=== PATIENT | female | born 1960 | race Two or more races ===

== ENCOUNTER 2020-02-24 12:11 | Inpatient (IN) | payer MEDICAID ==
[~2020-02-24] VITALS: Ht 165.1 cm; Wt 62.1 kg
[2020-02-24] MEDS ORDERED: AMOXICILLIN500 MG ORAL (12:36)
[2020-02-24] MEDS ORDERED: FUROSEMIDE20 M1 ORAL (12:36)
[2020-02-24] MEDS ORDERED: OMEPRAZOLE20 M2 ORAL (12:36)
[2020-02-24] MEDS ORDERED: CLARITHROMYCIN500 MG PO (12:36)
[2020-02-24] MEDS ORDERED: METRONIDAZOLE500 MG ORAL (12:36)
[2020-02-24] MEDS ORDERED: BACTRIM-DS1 EA ORAL (12:36)
[2020-02-24] MEDS ORDERED: Omnipaque-300 100ml vial INJ PRN ×2 (12:45→19:45)
[2020-02-24] MEDS ORDERED: Ketorolac 30mg Inj IV ONE (12:45)
--- NOTE | 2020-02-24 13:00 | NUR ---
ED Nurse Note: Pt walked into ED from home for abdominal pain 12/07. She has firm round stomach with nausea, pt states she has vomited 4x. Pt is alert and orientedx4, ambulatory. Set up on monitor. She has been seen by JOSE.
[2020-02-24 13:15] VITALS: BP 118/79
[2020-02-24 13:21] LABS: BASOPHILS % (AUTO) 0.4 % (0.0-2.0); EOSINOPHILS % (AUTO) 0.9 % (0.0-3.0); HEMATOCRIT 47.7 % (37.0-47.0); HEMOGLOBIN 15.1 G/DL (12.0-16.0); LYMPHOCYTES % (AUTO) 12.7 % (20.0-45.0); MEAN CORPUSCULAR VOLUME 86 FL (80-99); MONOCYTES % (AUTO) 5.3 % (1.0-10.0); NEUTROPHILS % (AUTO) 80.6 % (45.0-75.0); PLATELET COUNT 302 K/UL (150-450); RED BLOOD COUNT 5.54 M/UL (4.20-5.40); RED CELL DISTRIBUTION WIDTH 12.3 % (11.6-14.8); WHITE BLOOD COUNT 7.5 K/UL (4.8-10.8)
[2020-02-24 13:32] LABS: ANION GAP 13 mmol/L (5-15); BLOOD UREA NITROGEN 9 mg/dL (7-18); CALCIUM 9.5 MG/DL (8.5-10.1); CARBON DIOXIDE 28 MMOL/L (21-32); CHLORIDE 98 MMOL/L (98-107); CREATININE 1.1 MG/DL (0.55-1.30); POTASSIUM 4.2 MMOL/L (3.5-5.1); SODIUM 138 MMOL/L (136-145)
[2020-02-24 13:38] LABS: INR 1.1 (0.9-1.1)
[2020-02-24 13:39] LABS: ALANINE AMINOTRANSFERASE 28 U/L (12-78); ALBUMIN 3.5 G/DL (3.4-5.0); ALBUMIN/GLOBULIN RATIO 0.8 (1.0-2.7); ALKALINE PHOSPHATASE 79 U/L (46-116); ASPARTATE AMINO TRANSFERASE 46 U/L (15-37); BILIRUBIN,TOTAL 0.3 MG/DL (0.2-1.0); CREATINE KINASE 101 U/L (26-308)
[2020-02-24] MEDS ORDERED: Lidocaine 1% Plain 30 ml INJ ONE (14:00)
[2020-02-24 14:24] LABS: APPEARANCE,URINE CLEAR; BILIRUBIN, URINE NEGATIVE (NEGATIVE); GLUCOSE, URINE (UA) NEGATIVE (NEGATIVE); KETONES,URINE 2+ (NEGATIVE); LEUKOCYTE ESTERASE ,URINE 1+ (NEGATIVE); NITRITE,URINE NEGATIVE (NEGATIVE); PH,URINE 5 (4.5-8.0); PROTEIN,URINE 2+ (NEGATIVE); UROBILINOGEN,URINE NORMAL MG/DL (0.0-1.0)
[2020-02-24 14:36] LABS: COLOR,URINE YELLOW
--- NOTE | 2020-02-24 15:03 | NUR ---
CONSENT SIGNED FOR PARACENTESIS
[2020-02-24 15:30] VITALS: BP 121/75
--- NOTE | 2020-02-24 15:51 | Emergency Room Report ---
History of Present Illness General Chief Complaint: Abdominal Pain Source: Patient Present Illness HPI Patient is a 59-year-old female who presents for increased abdominal distention and abdominal discomfort. Gradual onset of symptoms associated with weight loss. Decreased appetite. Reports having some increased dysuria. Had recent negative Pap smear. Had not been have any fever. Previous CT imaging showed normal liver. Had not been having any vomiting or diarrhea. Gradual onset. Allergies: Coded Allergies: No Known Allergies (Unverified , 02/24/20) COVID-19 Screening Contact w/high risk pt: No Experienced COVID-19 symptoms?: No COVID-19 Testing performed INSURANCE COLLECTOR: No Patient History Past Medical History: see triage record Last Menstrual Period: menopause Reviewed Nursing Documentation: PMH: Agreed; PSxH: Agreed Nursing Documentation-PMH Past Medical History: No Stated History Review of Systems All Other Systems: negative except mentioned in HPI Physical Exam Vital Signs Date Time Temp Pulse Resp B/P (MAP) Pulse Ox O2 Delivery O2 Flow Rate FiO2 02/24/20 12:35 97.9 107 16 115/82 (93) 98 Room Air 02/24/20 13:15 99 Sp02 EP Interpretation: reviewed, normal General Appearance: normal inspection, well appearing, no apparent distress, alert, GCS 15, non-toxic Head: atraumatic ENT: normal ENT inspection, hearing grossly normal, normal voice Neck: normal inspection, full range of motion, supple, no bony tend Respiratory: normal inspection, lungs clear, normal breath sounds, no respiratory distress, no retraction, no wheezing Cardiovascular #1: regular rate, rhythm, no edema Gastrointestinal: non tender, soft, no guarding, no hernia, other, decreased bowel sounds - Fluid, Ascites Genitourinary: no CVA tenderness Musculoskeletal: normal inspection, back normal, normal range of motion Neurologic: alert, motor strength/tone normal, open hearth worker III-XII nml as tested, oriented x3, responsive, speech normal, normal inspection Psychiatric: normal inspection, judgement/insight normal, mood/affect normal Medical Decision Making Diagnostic Impression: Primary Impression: Ascites Additional Impression: Abdominal pain ER Course Patient was consented for paracentesis. Informed the risk benefits and alternatives of paracentesis including infection, bleeding, intestinal perforation among others. Patient indicates understanding and wishes to proceed with procedure. Indication new onset ascites possible SBP patient was noted to have large volume of ascites on ultrasound. Sterile prep with chlorhexidine anesthesia with 15 cc of lidocaine 1% introduced a catheter after localization of fluid pocket catheter was advanced over the needle after clear fluid was obtained. Minimal amount of fluid could be drained due to catheter malfunctioning. Fluid was sent for laboratory studies. EBL less than 5 cc. Sterile dressing was applied.Repeat attempt x2 had similar inability to drain fluid. Patient likely require further inpatient treatment. Dr. Laurent was contacted and agreed with inpatient management. Last Vital Signs Date Time Temp Pulse Resp B/P (MAP) Pulse Ox O2 Delivery O2 Flow Rate FiO2 02/24/20 13:15 97 18 Room Air 99 02/24/20 13:15 97.9 118/79 99 Status: improved Disposition: ADMITTED INPATIENT Condition: Stable Referrals: [facility],REFERRING (PCP) Barron Salinas MD Feb 24, 2020 15:51
[2020-02-24] MEDS ORDERED: Morphine Sulfate 2mg/ml Inj(IV/IM USE ONLY) IVP ONE (17:00)
[2020-02-24 18:00] VITALS: BP 128/79
[2020-02-24] MEDS ORDERED: Cefepime HCl 1 GM in D5W 55 ML IVPB ONE (18:15)
--- NOTE | 2020-02-24 18:31 | History & Physical ---
History of Present Illness General Reason for Hospitalization: Abdominal Pain Present Illness HPI 59-year-old female with history of 2 weeks of ascites in abdomen, over 2 months of weight loss and lack of appetite, and epigastric pain here requesting paracentesis. Patient has had multiple CT scans and ultrasound blood work recently done also she has diffuse ascites. No liver cirrhosis or other abnormalities noted. Also complains of urinary urgency. Denies any diarrhea or constipation. Denies any nausea or vomiting. Denies fever and chills. Abdomen is not rigid and not tender. Denies alcohol intake, tobacco smoke, drug use. Patient is currently under treatment for H. pylori. Allergies: Coded Allergies: No Known Allergies (Unverified , 02/24/20) COVID-19 Screening Contact w/high risk pt: No Experienced COVID-19 symptoms?: No Medication History Scheduled Amoxicillin* (Amoxil*), 500 MG ORAL EVERY 12 HOURS, (Reported) Clarithromycin* (Clarithromycin*), 500 MG PO Q12HR, (Reported) Furosemide* (Lasix*), 20 MG ORAL DAILY, (Reported) Metronidazole* (Flagyl*), 500 MG ORAL BID, (Reported) Omeprazole (Omeprazole), 20 MG ORAL BID, (Reported) Trimethoprim/Sulfamethoxazole (Bactrim Ds Tablet), 1 TAB ORAL TWICE A DAY, (Reported) Patient History Healthcare decision maker Resuscitation status Advanced Directive on File Review of Systems Review of Symptoms General ROS: no weight loss or fever Psychological ROS: no depression or mood changes, no memory loss Ophthalmic ROS: no visual changes or eye irritation ENT ROS: no nasal congestion, hearing loss, dizziness Allergy and Immunology ROS: no allergic symptoms or urticaria Hematological and Lymphatic ROS: no swollen glands, unusual bleeding or bruising Endocrine ROS: no polyuria, polydipsia, weight changes, temperature intolerance Respiratory ROS: no cough, shortness of breath, or wheezing Cardiovascular ROS: no chest pain or dyspnea on exertion Gastrointestinal ROS: + abd pain Musculoskeletal ROS: no myalgias or arthralgias Neurological ROS: no TIA or stroke symptoms Dermatological ROS: no new or changing skin lesions, rashes or pruritis Physical Exam Physical Exam General appearance: alert, cooperative, no distress, appears stated age Head: Normocephalic, without obvious abnormality, atraumatic Eyes: conjunctivae/corneas clear. PERRL, EOM's intact. Fundi benign Throat: Lips, mucosa, and tongue normal. Teeth and gums normal Neck: supple, symmetrical, trachea midline, no adenopathy, thyroid: not enlarged, symmetric, no tenderness/mass/nodules, no carotid bruit and no JVD Lungs: clear to auscultation bilaterally Heart: regular rate and rhythm, S1, S2 normal, no murmur, click, rub or gallop Abdomen: soft, non-tender. Bowel sounds normal. No masses, no organomegaly Extremities: extremities normal, atraumatic, no cyanosis or edema Pulses: 2+ and symmetric Skin: Skin color, texture, turgor normal. No rashes or lesions Neurologic: Grossly normal Last 24 Hour Vital Signs Date Time Temp Pulse Resp B/P (MAP) Pulse Ox O2 Delivery O2 Flow Rate FiO2 02/24/20 17:29 97.9 02/24/20 15:30 97.9 89 17 121/75 98 Room Air 02/24/20 13:15 97 18 Room Air 99 02/24/20 13:15 97.9 97 18 118/79 99 Room Air 02/24/20 12:35 97.9 107 16 115/82 (93) 98 Room Air Laboratory Tests Test 02/24/20 13:10 02/24/20 14:00 02/24/20 14:10 02/24/20 15:45 White Blood Count 7.5 K/UL (4.8-10.8) Red Blood Count 5.54 M/UL (4.20-5.40) H Hemoglobin 15.1 G/DL (12.0-16.0) Hematocrit 47.7 % (37.0-47.0) H Mean Corpuscular Volume 86 FL (80-99) Mean Corpuscular Hemoglobin 27.3 PG (27.0-31.0) Mean Corpuscular Hemoglobin Concent 31.7 G/DL (32.0-36.0) L Red Cell Distribution Width 12.3 % (11.6-14.8) Platelet Count 302 K/UL (150-450) Mean Platelet Volume 7.1 FL (6.5-10.1) Neutrophils (%) (Auto) 80.6 % (45.0-75.0) H Lymphocytes (%) (Auto) 12.7 % (20.0-45.0) L Monocytes (%) (Auto) 5.3 % (1.0-10.0) Eosinophils (%) (Auto) 0.9 % (0.0-3.0) Basophils (%) (Auto) 0.4 % (0.0-2.0) Prothrombin Time 11.6 SEC (9.30-11.50) H Prothromb Time International Ratio 1.1 (0.9-1.1) Activated Partial Thromboplast Time 22 SEC (23-33) L Sodium Level 138 MMOL/L (136-145) Potassium Level 4.2 MMOL/L (3.5-5.1) Chloride Level 98 MMOL/L (98-107) Carbon Dioxide Level 28 MMOL/L (21-32) Anion Gap 13 mmol/L (5-15) Blood Urea Nitrogen 9 mg/dL (7-18) Creatinine 1.1 MG/DL (0.55-1.30) Estimat Glomerular Filtration Rate 51.0 mL/min (>60) Glucose Level 106 MG/DL (74-106) Calcium Level 9.5 MG/DL (8.5-10.1) Total Bilirubin 0.3 MG/DL (0.2-1.0) Aspartate Amino Transf (AST/SGOT) 46 U/L (15-37) H Alanine Aminotransferase (ALT/SGPT) 28 U/L (12-78) Alkaline Phosphatase 79 U/L (46-116) Total Creatine Kinase 101 U/L (26-308) Troponin I 0.000 ng/mL (0.000-0.056) Total Protein 7.9 G/DL (6.4-8.2) Albumin 3.5 G/DL (3.4-5.0) Globulin 4.4 g/dL Albumin/Globulin Ratio 0.8 (1.0-2.7) L Lipase 193 U/L (73-393) Serum Alcohol < 3 mg/dL Urine Opiates Screen Negative (NEGATIVE) Urine Barbiturates Screen Negative (NEGATIVE) Phencyclidine (PCP) Screen Negative (NEGATIVE) Urine Amphetamines Screen Negative (NEGATIVE) Urine Benzodiazepines Screen Negative (NEGATIVE) Urine Cocaine Screen Negative (NEGATIVE) Urine Marijuana (THC) Screen Negative (NEGATIVE) Urine Color Yellow Urine Appearance Clear Urine pH 5 (4.5-8.0) Urine Specific [place] 1.025 (1.005-1.035) Urine Protein 2+ (NEGATIVE) H Urine Glucose (UA) Negative (NEGATIVE) Urine Ketones 2+ (NEGATIVE) H Urine Blood 2+ (NEGATIVE) H Urine Nitrite Negative (NEGATIVE) Urine Bilirubin Negative (NEGATIVE) Urine Urobilinogen Normal MG/DL (0.0-1.0) Urine Leukocyte Esterase 1+ (NEGATIVE) H Urine RBC 2-4 /HPF (0 - 2) H Urine WBC 0-2 /HPF (0 - 2) Urine Squamous Epithelial Cells Few /LPF (NONE/OCC) Urine Bacteria Few /HPF (NONE) Urine Mucus Moderate /LPF (NONE/OCC) H Body Fluid Source Peritoneal Body Fluid Volume 3.5 mL Body Fluid Appearance Yellow, hazy (Clear) Body Fluid RBC Pending Body Fluid Total Nucleated Cells Pending Body Fluid Polynuclear WBCs (%) Pending Body Fluid Mononuclear WBCs (%) Pending Body Fluid Mesothelial Cells (%) Pending Body Fluid Glucose Pending Body Fluid Total Protein Pending Body Fluid Comment Pending Height (Feet): 5 Height (Inches): 5.00 Weight (Pounds): 130 Medications Current Medications Medications (Trade) Dose Ordered Sig/Silverio Route PRN Reason Start Time Stop Time Status Last Admin Dose Admin Cefepime HCl 1 gm/ Dextrose 55 ml @ 110 mls/hr ONCE ONCE IVPB 02/24/20 18:15 02/24/20 18:44 02/24/20 18:18 Iohexol (OMNIPAQUE-300 100ml) 100 ml NOW PRN INJ Radiology Procedure 02/24/20 12:45 02/26/20 12:44 Sodium Chloride 1,000 ml @ 100 mls/hr Q10H IV 02/24/20 17:30 03/25/20 17:29 02/24/20 17:31 Assessment/Plan Diagnosis [place]: #Abd pain #Bloating #Hpylori? - admit to floor - GI eval - antiemetics - advance diet as tolerated [facility] Hospital declaration Disposition: Once the patient is stable to leave the hospital, I anticipate the patient will likely be discharged to the following environment: Home I spent 70 minutes on this patient's case, and 35 minutes was dedicated to counseling and/or care coordination. MIPS (Merit-based Incentive Payment System) Applicable CPT: 57091, 27150 CHECK ALL THAT ARE MET: Measure #5 (CHF): All ages. Prescribe DEL/ARB upon discharge for patients with left ventricular systolic dysfunction. If not, the reason is clearly documented in the medical chart. Measure #8 (CHF): All ages. Prescribe a beta koffi upon discharge for patients with left ventricular systolic dysfunction. If not, the reason is clear ly documented in the medical chart. Measure #47 Advance care plan or surrogate decision maker documented in the medical record. Measure #130 The provider has documented, updated, or reviewed the patients current medication list and has documented it in the patients note. Measure #374 (All): Send report to referring provider. Measure #407(Sepsis due to MSSA bacteremia): Age 18+ Patient treated with a beta-lactam antibiotic (Nafcillin, Oxacillin or Cefazolin) as definitive therapy. MEDICAL COMPLEXITY High complexity medical decision making (need 2/3 categories) Problem - need 4 points Acute/new problem with new plan for workup (4 points, 1 max) Acute/new problem without additional workup (3 points, 1 max) Unstable chronic problem actively being managed (2 point each, 2 max) Stable chronic problem actively being managed (1 point each, 2 max) Self-limited/transient process (constipation, muscle ache, etc) (1 point each, 2 max) Data - need 4 points Reviewed labs/imaging studies (1 points, 2 max) Independent review of imaging (EKG, xrays, etc) (2 points, 2 max) Discussed case with consult/other MD/RN (2 points, 2 max) High Risk - qualify if have one of the following: Severe exacerbation of acute problem, acute mental status change, IV narcotics, monitoring drug levels (vancomycin, INR, tacrolimus etc) Kimberly Laurent M.D. Feb 24, 2020 18:31
--- NOTE | 2020-02-24 18:37 | NUR ---
ED Nurse Note: Report given to Vanesa JANSEN.
--- NOTE | 2020-02-24 18:40 | NUR ---
ED Nurse Note: Pt transferred to MS floor with all belongings. No acute distress. Cleared by ERMD to be transferred.
--- NOTE | 2020-02-24 18:45 | NUR ---
NURSE NOTES: Received report from JUSTYNA Alonso. Pt brought up to unit via gurney, patient observed to be awake, alert, and oriented x4. Able to ambulate from gurney to bed. Currently on room air, no s/sx of SOB/Distress, no c/o any pain or discomfort. Patient with IV on Right Hand gauge 22 asymptomatic, inplace and intact. Belongings checked and accounted for. Medications brought from home listed and brought to pharmacy. Oriented patient to surroundings. Bed placed on lowest and locked, call light placed within reach and will continue to monitor for any changes in condition.
--- NOTE | 2020-02-24 18:49 | Emergency Room Report ---
History of Present Illness General Chief Complaint: Abdominal Pain Source: Patient Present Illness HPI 59-year-old female with history of 2 weeks of ascites in abdomen, over 2 months of weight loss and lack of appetite, and epigastric pain here requesting paracentesis. Patient has had multiple CT scans and ultrasound blood work recently done also she has diffuse ascites. No liver cirrhosis or other abnormalities noted. Also complains of urinary urgency. Denies any diarrhea or constipation. Denies any nausea or vomiting. Denies fever and chills. Abdomen is not rigid and not tender. Denies alcohol intake, tobacco smoke, drug use. Patient is currently under treatment for H. pylori. 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 Patient History Past Medical History: see triage record Past Surgical History: none Pertinent Family History: none Last Menstrual Period: menopause Now: No Immunizations: UTD Reviewed Nursing Documentation: PMH: Agreed; PSxH: Agreed Nursing Documentation-PMH Past Medical History: No Stated History Review of Systems All Other Systems: negative except mentioned in HPI Physical Exam Vital Signs Date Time Temp Pulse Resp B/P (MAP) Pulse Ox O2 Delivery O2 Flow Rate FiO2 02/24/20 12:35 97.9 107 16 115/82 (93) 98 Room Air 02/24/20 13:15 99 Sp02 EP Interpretation: reviewed, normal General Appearance: no apparent distress, alert, GCS 15, non-toxic Head: normocephalic, atraumatic Eyes: bilateral eye normal inspection, bilateral eye PERRL ENT: hearing grossly normal, normal pharynx, no angioedema, normal voice Neck: full range of motion, supple/symm/no masses Respiratory: chest non-tender, lungs clear, normal breath sounds, no rhonchi, no respiratory distress, no retraction, speaking full sentences Cardiovascular #1: regular rate, rhythm, no edema, no murmur Gastrointestinal: non tender, no mass, no organomegaly, no guarding, no hernia, no pulsatile mass, no rebound, distended - Diffuse ascites noted Rectal: deferred Genitourinary: no CVA tenderness Musculoskeletal: back normal Neurologic: alert, motor strength/tone normal, oriented x3, sensory intact, responsive, speech normal Psychiatric: judgement/insight normal, memory normal, mood/affect normal, no suicidal/homicidal ideation Skin: no rash Lymphatic: no adenopathy Procedures Critical Care Time Critical Care Time Total critical care time; approximately 30 minutes. Due to a high probability of clinically significant, life threatening deterioration, the patient required my highest level of preparedness to intervene emergently and I personally spent this critical care time directly and personally managing the patient. This critical care time included obtaining a history; examining the patient; pulse oximetry; ordering and reviewing of studies; arranging urgent treatment with development of a management plan; evaluation of patient's response to treatment; frequent reassessment; and, discussions with other providers. This critical care time was performed to assess and manage the high probability of imminent, life-threatening deterioration that could result in multiorgan failure it was exclusive of separate billable procedures and treating other patients and teach ing time. Please see MDM section and the rest of the note for further information on patient assessment and treatment. Additional Procedure Procedure Narrative Paracentesis was performed Medical Decision Making PA Attestation All my diagnosis and treatment plans were reviewed ad discussed with my supervising physician Dr. Doty All my diagnosis and treatment plans were reviewed ad discussed with my supervising physician Dr. Salinas Diagnostic Impression: Primary Impression: Ascites ER Course 59-year-old female with history of 2 weeks of ascites in abdomen, over 2 months of weight loss and lack of appetite, and epigastric pain here requesting paracentesis. Patient has had multiple CT scans and ultrasound blood work recently done also she has diffuse ascites. No liver cirrhosis or other abnormalities noted. Also complains of urinary urgency. Denies any diarrhea or constipation. Denies any nausea or vomiting. Denies fever and chills. Abdomen is not rigid and not tender. Denies alcohol intake, tobacco smoke, drug use. Patient is currently under treatment for H. pylori. Ddx considered but are not limited to: appendicitis, cholecystis, gastritis, gastroenteritis, UTI, pyelonephritis, SBO, diverticulitis, influenza with GI manifestation, MO, pancreatitis Vital signs: are WNL, pt. is afebrile H&PE are most consistent with: Ascites ORDERS: This time patient had one done 3 days ago, abdominal pain order set ED INTERVENTIONS: Maintenance fluid, Zofran, morphine Patient was evaluated in the context of the global COVID-19 pandemic, which necessitated consideration that the patient might be at risk for infection with the SARS-COV-2 virus that causes COVID-19. Institutional protocols and algorithms that pertain to the evaluation of patients at risk for COVID-19 are in a state of rapid change based on information relieved by multiple regulatory bodies including the CDC and the federal and state organizations. These policies and algorithms were followed during the patient's care in the ED. Patient was admitted with diagnosis of ascites to Dr. Laurent under supervision of Dr.: Brad Doty pt stable at time of admission Last Vital Signs Date Time Temp Pulse Resp B/P (MAP) Pulse Ox O2 Delivery O2 Flow Rate FiO2 02/24/20 18:00 97.9 81 16 128/79 99 Room Air 02/24/20 13:15 99 Referrals: [facility],REFERRING (PCP) Ely Jorgensen Feb 24, 2020 18:49
--- NOTE | 2020-02-24 19:30 | NUR ---
NURSE HAND-OFF: Important Events on Shift: admission Patient Status:stable Diet: n/a Pending Orders: n/a Pending Results/Labs:n/a Pending MD notification:n/a Latest Vital Signs: Temperature 97.9 , Pulse 94 , B/P 136/77 , Respiratory Rate 19 , O2 SAT 96 , Room Air, O2 Flow Rate . Vital Sign Comment: stable Latest Gard[place] Fall Score: Fall Risk: Safety Measures: Call light , Bed Alarm , Side Rails , Bed position . Fall Precautions: Report given to JUSTYNA Lewis.
--- NOTE | 2020-02-24 19:30 | NUR ---
NURSE NOTES: Pt. received from JUSTYNA Bacon. Pt. AAOx4, on room air, breathing even and unlabored on room air, no indications of SOB, no active complaints of pain, and no N/V at this time. Skin intact, belongings checked. IV noted right hang 22g intact and patent, saline locked. IV intact and draining yellow urine with sediment well. Bed low and locked, side rails x2 up, bed alarm active, and call light in reach. Will follow up with Dr. Laurent for admission orders.
--- NOTE | 2020-02-24 19:40 | NUR ---
NURSE NOTES: Admission orders received from Dr. Laurent, will carry out plan of care.
[2020-02-24 20:00] VITALS: BP 114/69
[2020-02-25] VITALS: BP 120/84
--- NOTE | 2020-02-25 02:48 | NUR ---
NURSE NOTES: Yellow tinged drainage noted from paracentesis site. Pt. describing pain at site upon palpation. Dressing changed, sheets changed. Charge nurse aware.
[2020-02-25 03:52] VITALS: BP 106/77
[2020-02-25] MEDS: HYDROcodone/Acetamin 5/325 tab ORAL PRN ×2 (06:20→20:13)
--- NOTE | 2020-02-25 06:46 | NUR ---
NURSE NOTES: Yellow tinged drainage from paracentesis site, new dressing applied. Abdominal girth 99cm.
--- NOTE | 2020-02-25 07:13 | NUR ---
NURSE HAND-OFF: Important Events on Shift:[]continuous drainage from paracentesis site, requesting to discontinue granado, no N/V, no BM. Patient Status: []stable Diet: []NPO for procedure Pending Orders: []CT with and without contrast Pending Results/Labs:[]na Pending MD notification:[request to D/C granado Latest Vital Signs: Temperature 98.0 , Pulse 87 , B/P 106 /77 , Respiratory Rate 19 , O2 SAT 96 , Room Air, O2 Flow Rate . Vital Sign Comment: []stable Latest [place] Fall Score: 20 Fall Risk: Low Risk Safety Measures: Call light Within Reach, Bed Alarm Zone 1, Side Rails Side Rails x2, Bed position Low and Locked. Fall Precautions: Yellow Socks Patient Fall Education Report given to [JUSTYNA Bacon].
--- NOTE | 2020-02-25 07:45 | NUR ---
NURSE NOTES: Received report from JUSTYNA Lewis. Patient observed to be awake, alert, and oriented x4. Seen lying in bed with HOB elevated, currently on room air no s/sx of SOB/Distress, no c/o any pain or discomfort. Observed to have leakage at paracentesis site, changed dressing. With IV site on RH gauge 22 asymptomatic, inplace and intact. With granado catheter, patient verbalized desire for the catheter to be removed. Bed placed on lowest and locked, call light placed within reach and will continue to monitor for any changes in condition.
[2020-02-25 08:00] VITALS: BP 99/75
[2020-02-25 08:44] LABS: BASOPHILS % (AUTO) 0.5 % (0.0-2.0); EOSINOPHILS % (AUTO) 2.5 % (0.0-3.0); HEMATOCRIT 39.1 % (37.0-47.0); HEMOGLOBIN 12.6 G/DL (12.0-16.0); LYMPHOCYTES % (AUTO) 11.9 % (20.0-45.0); MEAN CORPUSCULAR VOLUME 86 FL (80-99); MONOCYTES % (AUTO) 8.4 % (1.0-10.0); NEUTROPHILS % (AUTO) 76.7 % (45.0-75.0); PLATELET COUNT 434 K/UL (150-450); RED BLOOD COUNT 4.55 M/UL (4.20-5.40); RED CELL DISTRIBUTION WIDTH 12.1 % (11.6-14.8); WHITE BLOOD COUNT 6.8 K/UL (4.8-10.8)
[2020-02-25 09:14] LABS: ALBUMIN 2.8 G/DL (3.4-5.0); ALBUMIN/GLOBULIN RATIO 0.9 (1.0-2.7); BILIRUBIN,TOTAL 0.3 MG/DL (0.2-1.0); CALCIUM 8.5 MG/DL (8.5-10.1); CREATININE 1.1 MG/DL (0.55-1.30); POTASSIUM 3.7 MMOL/L (3.5-5.1)
[2020-02-25 12:00] VITALS: BP 112/75
--- NOTE | 2020-02-25 12:40 | General Progress Note ---
Subjective ROS Limited/Unobtainable: Yes Allergies: Coded Allergies: No Known Allergies (Unverified , 02/24/20) Objective Last 24 Hour Vital Signs Date Time Temp Pulse Resp B/P (MAP) Pulse Ox O2 Delivery O2 Flow Rate FiO2 02/25/20 12:00 97.7 80 19 112/75 (87) 100 02/25/20 08:00 97.7 84 20 99/75 (83) 94 02/25/20 03:52 98.0 87 19 106/77 (87) 96 02/25/20 00:00 98.1 100 18 120/84 (96) 96 02/24/20 21:50 Room Air 02/24/20 20:00 97.7 93 18 114/69 (84) 94 02/24/20 18:41 98.5 79 18 117/76 98 02/24/20 18:00 97.9 81 16 128/79 99 Room Air 02/24/20 17:29 97.9 02/24/20 15:30 97.9 89 17 121/75 98 Room Air 02/24/20 13:15 97 18 Room Air 99 02/24/20 13:15 97.9 97 18 118/79 99 Room Air Intake and Output 02/24/20 02/25/20 19:00 07:00 Intake Total 200 ml Output Total 150 ml Balance 50 ml Intake Oral 200 ml Output Urine Total 150 ml # Voids 1 Laboratory Tests 02/24/20 13:10: White Blood Count 7.5, Red Blood Count 5.54H, Hemoglobin 15.1, Hematocrit 47.7H, Mean Corpuscular Volume 86, Mean Corpuscular Hemoglobin 27.3, Mean Corpuscular Hemoglobin Concent 31.7L, Red Cell Distribution Width 12.3, Platelet Count 302, Mean Platelet Volume 7.1, Neutrophils (%) (Auto) 80.6H, Lymphocytes (%) (Auto) 12.7L, Monocytes (%) (Auto) 5.3, Eosinophils (%) (Auto) 0.9, Basophils (%) (Auto) 0.4, Differential Total Cells Counted 100, Neutrophils % (Manual) 72, Lymphocytes % (Manual) 18L, Monocytes % (Manual) 9, Eosinophils % (Manual) 1, Basophils % (Manual) 0, Band Neutrophils 0, Platelet Estimate Adequate, Platelet Morphology Normal, Red Blood Cell Morphology Normal, Prothrombin Time 11.6H, Prothromb Time International Ratio 1.1, Activated Partial Thromboplast Time 22L, Sodium Level 138, Potassium Level 4.2, Chloride Level 98, Carbon Dioxide Level 28, Anion Gap 13, Blood Urea Nitrogen 9, Creatinine 1.1, Estimat Glomerular Filtration Rate 51.0, Glucose Level 106, Calcium Level 9.5, Total Bilirubin 0.3, Aspartate Amino Transf (AST/SGOT) 46H, Alanine Aminotransferase (ALT/SGPT) 28, Alkaline Phosphatase 79, Total Creatine Kinase 101, Troponin I 0.000, Total Protein 7.9, Albumin 3.5, Globulin 4.4, Albumin/Globulin Ratio 0.8L, Lipase 193, Serum Alcohol < 3 02/24/20 14:00: Urine Opiates Screen Negative, Urine Barbiturates Screen Negative, Phencyclidine (PCP) Screen Negative, Urine Amphetamines Screen Negative, Urine Benzodiazepines Screen Negative, Urine Cocaine Screen Negative, Urine Marijuana (THC) Screen Negative 02/24/20 14:10: Urine Color Yellow, Urine Appearance Clear, Urine pH 5, Urine Specific [place] 1.025, Urine Protein 2+H, Urine Glucose (UA) Negative, Urine Ketones 2+H, Urine Blood 2+H, Urine Nitrite Negative, Urine Bilirubin Negative, Urine Urobilinogen Normal, Urine Leukocyte Esterase 1+H, Urine RBC 2-4H, Urine WBC 0-2, Urine Squamous Epithelial Cells Few, Urine Bacteria Few, Urine Mucus ModerateH 02/24/20 15:45: Body Fluid Source Peritoneal, Body Fluid Volume 3.5, Body Fluid Appearance Yellow, hazy, Body Fluid RBC [address], Body Fluid Total Nucleated Cells 0, Body Fluid Polynuclear WBCs (%) 10, Body Fluid Mononuclear WBCs (%) 85, Body Fluid Mesothelial Cells (%) 5, Body Fluid Glucose 64, Body Fluid Total Protein 4.8, Body Fluid Comment Na 02/25/20 08:25: White Blood Count 6.8, Red Blood Count 4.55, Hemoglobin 12.6, Hematocrit 39.1, Mean Corpuscular Volume 86, Mean Corpuscular Hemoglobin 27.8, Mean Corpuscular Hemoglobin Concent 32.3, Red Cell Distribution Width 12.1, Platelet Count 434, Mean Platelet Volume 6.7, Neutrophils (%) (Auto) 76.7H, Lymphocytes (%) (Auto) 11.9L, Monocytes (%) (Auto) 8.4, Eosinophils (%) (Auto) 2.5, Basophils (%) (Auto) 0.5, Sodium Level 138, Potassium Level 3.7, Chloride Level 102, Carbon Dioxide Level 30, Anion Gap 6, Blood Urea Nitrogen 9, Creatinine 1.1, Estimat Glomerular Filtration Rate 51.0, Glucose Level 101, Calcium Level 8.5, Total Bilirubin 0.3, Aspartate Amino Transf (AST/SGOT) 39H, Alanine Aminotransferase (ALT/SGPT) 22, Alkaline Phosphatase 61, Total Protein 5.8L, Albumin 2.8L, Globulin 3.0, Albumin/Globulin Ratio 0.9L Height (Feet): 5 Height (Inches): 5.00 Weight (Pounds): 130 General Appearance: alert EENT: PERRL/EOMI Neck: supple Cardiovascular: normal rate Respiratory/Chest: lungs clear Abdomen: normal bowel sounds, non tender, soft Extremities: non-tender Assessment/Plan Assessment/Plan: ascites HP gastritis ? malignancy tumor markers CT of abd pelvic us Sebastian Bentley MD Feb 25, 2020 12:40
--- NOTE | 2020-02-25 14:04 | NUR ---
CASE MANAGEMENT:INITIAL REVIEW 59 YR OLD FEMALE FROM HOME CC;ABDOMINAL PAIN SI;ABD PAIN. ASCITES RULE OUT. 97.9 107 18 98% ON RA AST 46 PT 11.6 APTT 22 UA+ PROTEIN, KETONES, BLOOD, LEUKOCYTE ESTERASE, RBC, MUCUS URINE TOX ~ NEGATIVE PARACENTESIS DONE IN ER IS;MORPHINE IV CEFEPIME IV IVF NS BOLUS ADMITTED TO MED SURG MED SURG STATUS DCP;FROM HOME Addendum: 02/25/20 at 1449 by MAURY ARRIOLA LVN LVN INTERQUAL CRITERIA MET
--- NOTE | 2020-02-25 15:03 | Diagnostic Imaging Report ---
Clinical Indication: Abdominal distention, weight loss, lack of appetite, epigastric pain Technique: Patient given oral contrast. IV administration nonionic contrast. Venous phase spiral acquisition obtained through the abdomen and pelvis. Multiplanar reconstructions were generated. Total dose length product 312 mGycm. CTDIvol(s) 5 mGy. Dose reduction achieved using automated exposure control Comparison: none Findings: The appendix is not clearly visualized, but there are no findings to suggest acute appendicitis. No evidence of diverticulosis or diverticulitis. No small bowel distention. Ingested contrast has traversed the entirety of the small bowel, extends far distally as the transverse colon. There is a moderate amount of ascites fluid present. This demonstrates mildly increased attenuation. No free intraperitoneal gas. Distal esophagus, stomach, duodenum are unremarkable. The posterior aspect of the uterus is surrounded by abnormal soft tissue is seen surrounding the posterior circumference of the uterus. This presumably represents confluent adnexal masses. Overall dimensions of this area are approximately 6.4 cm transverse by 4.7 cm AP. There is extensive omental infiltration by tumor. Mesenteric implants are also demonstrated scattered along the mesenteric surface. The liver demonstrates equivocal slight surface nodularity. No focal abnormality. The gallbladder is mildly distended, otherwise unremarkable. The bile ducts are nondilated. The pancreas, spleen, adrenals, kidneys are unremarkable. No retroperitoneal or mesenteric mass or adenopathy. There is considerable infiltration of the right sided abdominal wall fat. There are bilateral pleural effusions, massive on the right, moderate to large on the left. There are compressive atelectatic changes at both lung bases. The bones are unremarkable. 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 Correlate with clinical history Infiltration of the right-sided abdominal wall fat. This could represent edema of hemodynamic origin, versus cellulitis. Correlate with clinical findings. Massive right, moderate to large left pleural effusions. Associated compressive atelectatic changes The CT scanner at [facility] is accredited by the [employer] and the scans are performed using protocols designed to limit radiation exposure to as low as reasonably achievable to attain images of sufficient resolution adequate for diagnostic evaluation.
[2020-02-25 16:00] VITALS: BP 105/69
--- NOTE | 2020-02-25 18:19 | Diagnostic Imaging Report ---
EXAM: US Pelvis Transabdominal and Transvaginal, Complete and US Duplex Arterial/Venous of the Pelvis, Complete CLINICAL HISTORY: ABD PAIN TECHNIQUE: Real-time complete transabdominal and transvaginal pelvic ultrasound with image documentation. Transvaginal imaging was used for better evaluation of the endometrium and adnexa. Real-time duplex ultrasound scan of the arterial and venous flow of the pelvis with color Doppler flow and spectral waveform analysis. COMPARISON: 02/25/2020. FINDINGS: Uterus/cervix: The uterus measures 6.3 x 4.7 x 4.3 cm is. Endometrial stripe measures 0.3 cm. No myometrial mass. Right ovary: Neither ovary is discretely visualized. No torsion. Left ovary: See above. Free fluid: Moderate to large quantity of ascites. Bladder: Unremarkable as visualized. Wall is normal thickness for degree of distention. Other findings: There is a 10.8 cm solid and cystic ill-defined mass within the pelvis worrisome for neoplasm. IMPRESSION: 1. Heterogeneous solid cystic mass lesion centrally within the pelvis worrisome for neoplasm. 2. Moderate to large quantity of ascites. 3. Neither ovary is discretely visualized. 4. Magnetic resonance imaging of the pelvis with gadolinium administration is highly advised to follow. 5. Findings are highly worrisome for neoplasm, possibly of ovarian etiology.
--- NOTE | 2020-02-25 18:57 | Internal Med Progress Note ---
Subjective Physician Name Kimberly Laurent Attending Physician Kimberly Laurent M.D. Current Medications Medications (Trade) Dose Ordered Sig/Silverio Route PRN Reason Start Time Stop Time Status Last Admin Dose Admin Acetaminophen (Tylenol) 650 mg Q6H PRN ORAL Mild Pain (Pain Scale 1-3) 02/24/20 19:45 03/25/20 19:44 Acetaminophen/ Hydrocodone Bitart ([place] 5/325) 1 tab Q6H PRN ORAL Moderate Pain (Pain Scale 4-6) 02/24/20 19:45 03/02/20 19:44 02/25/20 06:20 Barium Sulfate (Readi-Cat 2) 450 ml NOW PRN ORAL Radiology Procedure 02/24/20 19:45 02/26/20 19:44 Iohexol (OMNIPAQUE-300 100ml) 100 ml NOW PRN INJ Radiology Procedure 02/24/20 12:45 02/26/20 12:44 Iohexol (OMNIPAQUE-300 100ml) 100 ml NOW PRN INJ Radiology Procedure 02/24/20 19:45 02/26/20 19:44 Ondansetron HCl (Zofran) 4 mg Q6H PRN IVP Nausea & Vomiting 02/24/20 19:45 03/25/20 19:44 Allergies: Coded Allergies: No Known Allergies (Unverified , 02/24/20) ROS Limited/Unobtainable: No Constitutional: Reports: weakness HEENT: Denies: no symptoms, eye pain, blurred vision, tearing, double vision, ear pain, ear discharge, nose pain, nose congestion, throat pain, throat swell ing, mouth pain, mouth swelling, other Cardiovascular: Denies: no symptoms, chest pain, edema, irregular heart rate, lightheadedness, palpitations, syncope, other Gastrointestinal/Abdominal: Reports: abdomen distended, abdominal pain Genitourinary: Denies: no symptoms, burning, discharge, frequency, flank pain, hematuria, incontinence, pain, urgency, other Neurologic/Psychiatric: Denies: no symptoms, anxiety, depressed, emotional problems, headache, numbness, paresthesia, pre-existing deficit, seizure, tingling, tremors, weakness, other Subjective CT abd obained concerning for metastatic ovarian malignancy Objective Last Vital Signs Date Time Temp Pulse Resp B/P (MAP) Pulse Ox O2 Delivery O2 Flow Rate FiO2 10/28/20 16:00 98.1 88 20 105/69 (81) 98 02/25/20 09:00 Room Air 02/24/20 13:15 99 General Appearance: no apparent distress EENT: PERRL/EOMI Neck: non-tender, normal alignment Cardiovascular: normal peripheral pulses, normal rate, regular rhythm Respiratory/Chest: chest wall non-tender, lungs clear Abdomen: distended Neurologic: alert, oriented x 3 Laboratory Tests Test 02/25/20 08:25 02/25/20 15:00 White Blood Count 6.8 K/UL (4.8-10.8) Red Blood Count 4.55 M/UL (4.20-5.40) Hemoglobin 12.6 G/DL (12.0-16.0) Hematocrit 39.1 % (37.0-47.0) Mean Corpuscular Volume 86 FL (80-99) Mean Corpuscular Hemoglobin 27.8 PG (27.0-31.0) Mean Corpuscular Hemoglobin Concent 32.3 G/DL (32.0-36.0) Red Cell Distribution Width 12.1 % (11.6-14.8) Platelet Count 434 K/UL (150-450) Mean Platelet Volume 6.7 FL (6.5-10.1) Neutrophils (%) (Auto) 76.7 % (45.0-75.0) H Lymphocytes (%) (Auto) 11.9 % (20.0-45.0) L Monocytes (%) (Auto) 8.4 % (1.0-10.0) Eosinophils (%) (Auto) 2.5 % (0.0-3.0) Basophils (%) (Auto) 0.5 % (0.0-2.0) Sodium Level 138 MMOL/L (136-145) Potassium Level 3.7 MMOL/L (3.5-5.1) Chloride Level 102 MMOL/L (98-107) Carbon Dioxide Level 30 MMOL/L (21-32) Anion Gap 6 mmol/L (5-15) Blood Urea Nitrogen 9 mg/dL (7-18) Creatinine 1.1 MG/DL (0.55-1.30) Estimat Glomerular Filtration Rate 51.0 mL/min (>60) Glucose Level 101 MG/DL (74-106) Calcium Level 8.5 MG/DL (8.5-10.1) Total Bilirubin 0.3 MG/DL (0.2-1.0) Aspartate Amino Transf (AST/SGOT) 39 U/L (15-37) H Alanine Aminotransferase (ALT/SGPT) 22 U/L (12-78) Alkaline Phosphatase 61 U/L (46-116) Total Protein 5.8 G/DL (6.4-8.2) L Albumin 2.8 G/DL (3.4-5.0) L Globulin 3.0 g/dL Albumin/Globulin Ratio 0.9 (1.0-2.7) L Urine Opiates Screen Positive (NEGATIVE) H Urine Barbiturates Screen Negative (NEGATIVE) Phencyclidine (PCP) Screen Negative (NEGATIVE) Urine Amphetamines Screen Negative (NEGATIVE) Urine Benzodiazepines Screen Negative (NEGATIVE) Urine Cocaine Screen Negative (NEGATIVE) Urine Marijuana (THC) Screen Negative (NEGATIVE) Intake and Output 02/24/20 02/25/20 19:00 07:00 Intake Total 200 ml Output Total 150 ml Balance 50 ml Intake Oral 200 ml Output Urine Total 150 ml # Voids 1 Assessment/Plan Assessment/Plan #Abd pain #concerns for metastatic ovarian malignancy #Bloating #Hpylori? 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 Correlate with clinical history Infiltration of the right-sided abdominal wall fat. This could represent edema of hemodynamic origin, versus cellulitis. Correlate with clinical findings. Massive right, moderate to large left pleural effusions. Associated compressive atelectatic changes Kimberly Laurent M.D. Feb 25, 2020 18:57
--- NOTE | 2020-02-25 19:20 | NUR ---
NURSE NOTES: RECEIVED PATIENT FROM JUSTYNA TRAVIS. PATIENT IS AWAKE, AAOX4, ON ROOM AIR, NO ACUTE DISTRESS NOTED. VSS. PIV INTACT AND PATENT. ABDOMEN DISTENTION NOTED. MEASURED 88CM. PATIENT C/O 6/10 ABDOMEN PAIN. WILL FOLLOW UP WITH PRN PAIN MEDICATION. BED IS LOCKED AND LOW, BED ALARMS ACTIVE, SIDE RAILS UPX2, AND CALL LIGHT IS WITHIN REACH. WILL CONTINUE TO MONITOR.
--- NOTE | 2020-02-25 19:56 | NUR ---
NURSE HAND-OFF: Important Events on Shift:CT scan abd,vag us Patient Status: stable Diet: regular Pending Orders: n/a Pending Results/Labs:n/a Pending MD notification:n/a Latest Vital Signs: Temperature 98.1 , Pulse 88 , B/P 105 /69 , Respiratory Rate 20 , O2 SAT 98 , Room Air, O2 Flow Rate . Vital Sign Comment: stable Latest [place] Fall Score: 20 Fall Risk: Low Risk Safety Measures: Call light Within Reach, Bed Alarm Zone 1, Side Rails Side Rails x2, Bed position Low and Locked. Fall Precautions: Yellow Socks Yellow Gown Door Sign Patient Fall Education Report given to Rosalina, RN.
[2020-02-25 20:00] VITALS: BP 101/69
[2020-02-26] VITALS: BP 103/69
[2020-02-26 04:00] VITALS: BP 107/86
--- NOTE | 2020-02-26 06:39 | Consultation ---
History of Present Illness General Chief Complaint: Abdominal Pain Present Illness Allergies: Coded Allergies: No Known Allergies (Unverified , 02/24/20) Medication History Scheduled Amoxicillin* (Amoxil*), 500 MG ORAL EVERY 12 HOURS, (Reported) Clarithromycin* (Clarithromycin*), 500 MG PO Q12HR, (Reported) Furosemide* (Lasix*), 20 MG ORAL DAILY, (Reported) Metronidazole* (Flagyl*), 500 MG ORAL BID, (Reported) Omeprazole (Omeprazole), 20 MG ORAL BID, (Reported) Trimethoprim/Sulfamethoxazole (Bactrim Ds Tablet), 1 TAB ORAL TWICE A DAY, (Reported) Patient History Healthcare decision maker Resuscitation status Advanced Directive on File Physical Exam Last 24 Hour Vital Signs Date Time Temp Pulse Resp B/P (MAP) Pulse Ox O2 Delivery O2 Flow Rate FiO2 02/26/20 00:00 97.7 95 17 103/69 (80) 95 02/25/20 21:00 Room Air 02/25/20 20:00 99.3 98 20 101/69 (80) 95 02/25/20 16:00 98.1 88 20 105/69 (81) 98 02/25/20 12:00 97.7 80 19 112/75 (87) 100 02/25/20 09:00 Room Air 02/25/20 08:00 97.7 84 20 99/75 (83) 94 Intake and Output 02/25/20 02/26/20 19:00 07:00 Intake Total 500 ml Balance 500 ml Intake Oral 500 ml # Voids 2 Laboratory Tests Test 02/25/20 08:25 02/25/20 15:00 White Blood Count 6.8 K/UL (4.8-10.8) Red Blood Count 4.55 M/UL (4.20-5.40) Hemoglobin 12.6 G/DL (12.0-16.0) Hematocrit 39.1 % (37.0-47.0) Mean Corpuscular Volume 86 FL (80-99) Mean Corpuscular Hemoglobin 27.8 PG (27.0-31.0) Mean Corpuscular Hemoglobin Concent 32.3 G/DL (32.0-36.0) Red Cell Distribution Width 12.1 % (11.6-14.8) Platelet Count 434 K/UL (150-450) Mean Platelet Volume 6.7 FL (6.5-10.1) Neutrophils (%) (Auto) 76.7 % (45.0-75.0) H Lymphocytes (%) (Auto) 11.9 % (20.0-45.0) L Monocytes (%) (Auto) 8.4 % (1.0-10.0) Eosinophils (%) (Auto) 2.5 % (0.0-3.0) Basophils (%) (Auto) 0.5 % (0.0-2.0) Sodium Level 138 MMOL/L (136-145) Potassium Level 3.7 MMOL/L (3.5-5.1) Chloride Level 102 MMOL/L (98-107) Carbon Dioxide Level 30 MMOL/L (21-32) Anion Gap 6 mmol/L (5-15) Blood Urea Nitrogen 9 mg/dL (7-18) Creatinine 1.1 MG/DL (0.55-1.30) Estimat Glomerular Filtration Rate 51.0 mL/min (>60) Glucose Level 101 MG/DL (74-106) Calcium Level 8.5 MG/DL (8.5-10.1) Total Bilirubin 0.3 MG/DL (0.2-1.0) Aspartate Amino Transf (AST/SGOT) 39 U/L (15-37) H Alanine Aminotransferase (ALT/SGPT) 22 U/L (12-78) Alkaline Phosphatase 61 U/L (46-116) Total Protein 5.8 G/DL (6.4-8.2) L Albumin 2.8 G/DL (3.4-5.0) L Globulin 3.0 g/dL Albumin/Globulin Ratio 0.9 (1.0-2.7) L Urine Opiates Screen Positive (NEGATIVE) H Urine Barbiturates Screen Negative (NEGATIVE) Phencyclidine (PCP) Screen Negative (NEGATIVE) Urine Amphetamines Screen Negative (NEGATIVE) Urine Benzodiazepines Screen Negative (NEGATIVE) Urine Cocaine Screen Negative (NEGATIVE) Urine Marijuana (THC) Screen Negative (NEGATIVE) Height (Feet): 5 Height (Inches): 5.00 Weight (Pounds): 130 Medications Current Medications Medications (Trade) Dose Ordered Sig/Silverio Route PRN Reason Start Time Stop Time Status Last Admin Dose Admin Acetaminophen (Tylenol) 650 mg Q6H PRN ORAL Mild Pain (Pain Scale 1-3) 10/27/20 19:45 03/25/20 19:44 Acetaminophen/ Hydrocodone Bitart ([place] 5/325) 1 tab Q6H PRN ORAL Moderate Pain (Pain Scale 4-6) 02/24/20 19:45 03/02/20 19:44 02/25/20 20:13 Barium Sulfate (Readi-Cat 2) 450 ml NOW PRN ORAL Radiology Procedure 02/24/20 19:45 02/26/20 19:44 Iohexol (OMNIPAQUE-300 100ml) 100 ml NOW PRN INJ Radiology Procedure 02/24/20 12:45 02/26/20 12:44 Iohexol (OMNIPAQUE-300 100ml) 100 ml NOW PRN INJ Radiology Procedure 02/24/20 19:45 02/26/20 19:44 Ondansetron HCl (Zofran) 4 mg Q6H PRN IVP Nausea & Vomiting 02/24/20 19:45 03/25/20 19:44 Assessment/Plan Assessment/Plan: Oncology Consultation REQ MD: Gerardo Laurent RFC: Ovarian mass DOS: 02/26/2020 HPI 59-year-old female with history of 2 weeks of ascites in abdomen, over 2 months of weight loss and lack of appetite, and epigastric pain here requesting paracentesis. Patient has had multiple CT scans and ultrasound blood work recently done also she has diffuse ascites. No liver cirrhosis or other abnormalities noted. Also complains of urinary urgency. Denies any diarrhea or constipation. Denies any nausea or vomiting. Denies fever and chills. Abdomen is not rigid and not tender. Denies alcohol intake, tobacco smoke, drug use. Patient is currently under treatment for H. pylori. Seen by Gi. Allergies: Coded Allergies: No Known Allergies (Unverified , 02/24/20) COVID-19 Screening Contact w/high risk pt: No Experienced COVID-19 symptoms?: No Medication History Scheduled Amoxicillin* (Amoxil*), 500 MG ORAL EVERY 12 HOURS, (Reported) Clarithromycin* (Clarithromycin*), 500 MG PO Q12HR, (Reported) Furosemide* (Lasix*), 20 MG ORAL DAILY, (Reported) Metronidazole* (Flagyl*), 500 MG ORAL BID, (Reported) Omeprazole (Omeprazole), 20 MG ORAL BID, (Reported) Trimethoprim/Sulfamethoxazole (Bactrim Ds Tablet), 1 TAB ORAL TWICE A DAY, (Reported) Patient History Healthcare decision maker Resuscitation status Advanced Directive on File Review of Symptoms General ROS: no weight loss or fever Psychological ROS: no depression or mood changes, no memory loss Ophthalmic ROS: no visual changes or eye irritation ENT ROS: no nasal congestion, hearing loss, dizziness Allergy and Immunology ROS: no allergic symptoms or urticaria Hematological and Lymphatic ROS: no swollen glands, unusual bleeding or bruising Endocrine ROS: no polyuria, polydipsia, weight changes, temperature intolerance Respiratory ROS: no cough, shortness of breath, or wheezing Cardiovascular ROS: no chest pain or dyspnea on exertion Gastrointestinal ROS: + abd pain Musculoskeletal ROS: no myalgias or arthralgias Neurological ROS: no TIA or stroke symptoms Physical Exam General appearance: alert, cooperative, no distress, appears stated age Head: Normocephalic, without obvious abnormality, atraumatic Eyes: conjunctivae/corneas clear. PERRL, EOM's intact. Fundi benign Throat: Lips, mucosa, and tongue normal. Teeth and gums normal Neck: supple, symmetrical, trachea midline, no adenopathy Lungs: clear to auscultation bilaterally Heart: regular rate and rhythm, S1, S2 normal, no murmur, click, rub or gallop Abdomen: soft, non-tender. Bowel sounds normal. No masses, no organomegaly Extremities: extremities normal, atraumatic, no cyanosis or edema Pulses: 2+ and symmetric Skin: Skin color, texture, turgor normal. Neurologic: Grossly normal Labs: noted Imaging: reviewed Assessment/Plan # Malignancy worisome in the ovary, can be primary ovarian or sarcoma v other process, p/w abd pain --> CT Complex bilateral adnexal region confluent mass, as described, presumably neoplastic, Massive right, moderate to large left pleural effusions. Assoc iated compressive atelectatic changes, Evidence of disseminated intra-abdominal neoplasm, with mesenteric and fairly extensive omental implants, most likely metastatic ovarian neoplasm --> tumor markers have been ordered --> imaging on prn basis --> consider eval with respiratory care assistant-onc for potential resection --> may get a biopsy at this time, has been ordered --> may do paracentesis, send off for cytology # Coagulopathy with elev ptt/inr --> vit k/ffp as needed # Bloating is likely related to ascites --> para prn # Hpylori? --> abx as needed per gi # Nausea/vomting --> on antiemetics # Dvt ppx scds Appreciate consultation and dw Jeremie Leary MD Feb 26, 2020 06:39
[2020-02-26] MEDS ORDERED: Sodium Bicarbonate 4% 2.4meq/5ml vial IV PRN (06:45)
[2020-02-26] MEDS ORDERED: Lidocaine 1% Plain 30 ml INJ PRN (06:45)
--- NOTE | 2020-02-26 07:35 | NUR ---
NURSE NOTES: Received report from Rosalina, RN. Patient in bed, awake, alert and oriented x 4, no SOB, bed in lowest position with breaks engaged and alarm on, on room air, denies any pain or discomfort at this time, on room air, IV line intact and patent, will continue to monitor and proceed with plan of care, call light within reach at all times.
--- NOTE | 2020-02-26 07:36 | NUR ---
HAND-OFF: Report given to JUSTYNA Gerardo.
[2020-02-26 08:00] VITALS: BP 113/76
[2020-02-26 09:00] LABS: BASOPHILS % (AUTO) 0.8 % (0.0-2.0); EOSINOPHILS % (AUTO) 3.2 % (0.0-3.0); HEMATOCRIT 40.3 % (37.0-47.0); HEMOGLOBIN 13.1 G/DL (12.0-16.0); LYMPHOCYTES % (AUTO) 12.5 % (20.0-45.0); MEAN CORPUSCULAR VOLUME 87 FL (80-99); MONOCYTES % (AUTO) 7.4 % (1.0-10.0); NEUTROPHILS % (AUTO) 76.1 % (45.0-75.0); PLATELET COUNT 349 K/UL (150-450); RED BLOOD COUNT 4.65 M/UL (4.20-5.40); RED CELL DISTRIBUTION WIDTH 12.6 % (11.6-14.8); WHITE BLOOD COUNT 7.1 K/UL (4.8-10.8)
[2020-02-26 09:35] LABS: ALBUMIN 2.9 G/DL (3.4-5.0); ALBUMIN/GLOBULIN RATIO 0.8 (1.0-2.7); BILIRUBIN,TOTAL 0.3 MG/DL (0.2-1.0); CALCIUM 8.7 MG/DL (8.5-10.1); CREATININE 1.1 MG/DL (0.55-1.30); POTASSIUM 3.5 MMOL/L (3.5-5.1)
--- NOTE | 2020-02-26 09:37 | Internal Med Progress Note ---
Subjective Physician Name Kimberly Laurent Attending Physician Kimberly Laurent M.D. Current Medications Medications (Trade) Dose Ordered Sig/Silverio Route PRN Reason Start Time Stop Time Status Last Admin Dose Admin Acetaminophen (Tylenol) 650 mg Q6H PRN ORAL Mild Pain (Pain Scale 1-3) 02/24/20 19:45 03/25/20 19:44 Acetaminophen/ Hydrocodone Bitart ([place] 5/325) 1 tab Q6H PRN ORAL Moderate Pain (Pain Scale 4-6) 02/24/20 19:45 03/02/20 19:44 02/25/20 20:13 Barium Sulfate (Readi-Cat 2) 450 ml NOW PRN ORAL Radiology Procedure 02/24/20 19:45 02/26/20 19:44 Iohexol (OMNIPAQUE-300 100ml) 100 ml NOW PRN INJ Radiology Procedure 02/24/20 12:45 02/26/20 12:44 Iohexol (OMNIPAQUE-300 100ml) 100 ml NOW PRN INJ Radiology Procedure 02/24/20 19:45 02/26/20 19:44 Lidocaine HCl (Xylocaine 1% 30ml) 30 ml NOW PRN INJ Radiology Procedure 02/26/20 06:45 02/28/20 06:44 Ondansetron HCl (Zofran) 4 mg Q6H PRN IVP Nausea & Vomiting 02/24/20 19:45 03/25/20 19:44 Sodium Bicarbonate (Sodium Bicarbonate 4%) 1 ml NOW PRN IV Radiology Procedure 02/26/20 06:45 02/28/20 06:44 Allergies: Coded Allergies: No Known Allergies (Unverified , 02/24/20) Subjective CT abd obained concerning for metastatic ovarian malignancy Objective Last Vital Signs Date Time Temp Pulse Resp B/P (MAP) Pulse Ox O2 Delivery O2 Flow Rate FiO2 02/26/20 08:00 97.9 95 17 113/76 (88) 95 02/25/20 21:00 Room Air 02/24/20 13:15 99 Laboratory Tests Test 02/25/20 15:00 02/26/20 08:05 Urine Opiates Screen Positive (NEGATIVE) H Urine Barbiturates Screen Negative (NEGATIVE) Phencyclidine (PCP) Screen Negative (NEGATIVE) Urine Amphetamines Screen Negative (NEGATIVE) Urine Benzodiazepines Screen Negative (NEGATIVE) Urine Cocaine Screen Negative (NEGATIVE) Urine Marijuana (THC) Screen Negative (NEGATIVE) White Blood Count 7.1 K/UL (4.8-10.8) Red Blood Count 4.65 M/UL (4.20-5.40) Hemoglobin 13.1 G/DL (12.0-16.0) Hematocrit 40.3 % (37.0-47.0) Mean Corpuscular Volume 87 FL (80-99) Mean Corpuscular Hemoglobin 28.1 PG (27.0-31.0) Mean Corpuscular Hemoglobin Concent 32.4 G/DL (32.0-36.0) Red Cell Distribution Width 12.6 % (11.6-14.8) Platelet Count 349 K/UL (150-450) Mean Platelet Volume 7.3 FL (6.5-10.1) Neutrophils (%) (Auto) 76.1 % (45.0-75.0) H Lymphocytes (%) (Auto) 12.5 % (20.0-45.0) L Monocytes (%) (Auto) 7.4 % (1.0-10.0) Eosinophils (%) (Auto) 3.2 % (0.0-3.0) H Basophils (%) (Auto) 0.8 % (0.0-2.0) Sodium Level Pending Potassium Level Pending Chloride Level Pending Carbon Dioxide Level Pending Blood Urea Nitrogen Pending Creatinine Pending Estimat Glomerular Filtration Rate Pending Glucose Level Pending Calcium Level Pending Total Bilirubin Pending Aspartate Amino Transf (AST/SGOT) Pending Alanine Aminotransferase (ALT/SGPT) Pending Alkaline Phosphatase Pending Ammonia 20 umol/L (11-32) Total Protein Pending Albumin Pending Globulin Pending Alpha Fetoprotein Pending Carcinoembryonic Antigen Pending CA 19-9 Antigen Pending CA 125 Antigen Pending Intake and Output 02/25/20 02/26/20 19:00 07:00 Intake Total 500 ml Balance 500 ml Intake Oral 500 ml # Voids 2 1 Assessment/Plan Assessment/Plan #Abd pain #concerns for metastatic ovarian malignancy #Bloating #Hpylori? 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 Correlate with clinical history Infiltration of the right-sided abdominal wall fat. This could represent edema of hemodynamic origin, versus cellulitis. Correlate with clinical findings. Massive right, moderate to large left pleural effusions. Associated compressive atelectatic changes Kimberly Laurent M.D. Feb 26, 2020 09:37
[2020-02-26] MEDS: Miralax 17gm pkt ORAL SCH (11:10)
[2020-02-26 12:00] VITALS: BP 108/81
--- NOTE | 2020-02-26 13:17 | Consultation ---
History of Present Illness General Reason for Hospitalization: Abdominal Pain Present Illness HPI This is a 51-year-old female who presents [facility] complaining of worsening abdominal pain states ongoing for some time now and worse in the past few weeks and feels very distended bloated and ill. Has been losing weight and feeling otherwise unwell. Feels intermittent nausea no emesis. Admitted further care and management abnormal labs abnormal imaging surgery called to eval and assist with care given abdominal pain. Patient seen, [facility] [place], chart reviewed. States mild pain little bit better with pain medication. States she had a tap 3 days ago and still leaking through the same site. Serous fluid leaking. Pause bowel movement and flatus. Not very hungry eating less than 10% of her meals. Allergies: Coded Allergies: No Known Allergies (Unverified , 02/24/20) COVID-19 Screening Contact w/high risk pt: No Experienced COVID-19 symptoms?: No Medication History Scheduled Amoxicillin* (Amoxil*), 500 MG ORAL EVERY 12 HOURS, (Reported) Clarithromycin* (Clarithromycin*), 500 MG PO Q12HR, (Reported) Furosemide* (Lasix*), 20 MG ORAL DAILY, (Reported) Metronidazole* (Flagyl*), 500 MG ORAL BID, (Reported) Omeprazole (Omeprazole), 20 MG ORAL BID, (Reported) Trimethoprim/Sulfamethoxazole (Bactrim Ds Tablet), 1 TAB ORAL TWICE A DAY, (Reported) Patient History History Provided By: Patient, Medical Record, PMD Healthcare decision maker Resuscitation status Advanced Directive on File Past Medical/Surgical History Past Medical/Surgical History: (1) Ascites (2) Abdominal pain Review of Systems Review of Symptoms General ROS: no weight loss or fever Psychological ROS: no depression or mood changes, no memory loss Ophthalmic ROS: no visual changes or eye irritation ENT ROS: no nasal congestion, hearing loss, dizziness Allergy and Immunology ROS: no allergic symptoms or urticaria Hematological and Lymphatic ROS: no swollen glands, unusual bleeding or bruising Endocrine ROS: no polyuria, polydipsia, weight changes, temperature intolerance Respiratory ROS: no cough, shortness of breath, or wheezing Cardiovascular ROS: no chest pain or dyspnea on exertion Gastrointestinal ROS: + abdominal pain,no bright red blood in stool. Musculoskeletal ROS: no myalgias or arthralgias Neurological ROS: no TIA or stroke symptoms Dermatological ROS: no new or changing skin lesions, rashes or pruritis Physical Exam Physical Exam General appearance: alert, cooperative, no distress, appears stated age Head: Normocephalic, without obvious abnormality, atraumatic Eyes: conjunctivae/corneas clear. PERRL, EOM's intact. Fundi benign Throat: Lips, mucosa, and tongue normal. Teeth and gums normal Neck: supple, symmetrical, trachea midline, no adenopathy, thyroid: not enlarged, symmetric, no tenderness/mass/nodules, no carotid bruit and no JVD Lungs: clear to auscultation bilaterally Heart: regular rate and rhythm, S1, S2 normal, no murmur, click, rub or gallop Abdomen: soft, discomfort general abd -tender. Bowel sounds normal. No masses, no organomegaly Extremities: extremities normal, atraumatic, no cyanosis or edema Pulses: 2+ and symmetric Skin: Skin color, texture, turgor normal. No rashes or lesions Neurologic: Grossly normal Last 24 Hour Vital Signs Date Time Temp Pulse Resp B/P (MAP) Pulse Ox O2 Delivery O2 Flow Rate FiO2 02/26/20 12:00 99.3 92 17 108/81 (90) 99 02/26/20 09:00 Room Air 02/26/20 08:00 97.9 95 17 113/76 (88) 95 02/26/20 04:00 98.1 84 18 107/86 (93) 93 02/26/20 00:00 97.7 95 17 103/69 (80) 95 02/25/20 21:00 Room Air 02/25/20 20:00 99.3 98 20 101/69 (80) 95 02/25/20 16:00 98.1 88 20 105/69 (81) 98 Intake and Output 02/25/20 02/26/20 19:00 07:00 Intake Total 500 ml Balance 500 ml Intake Oral 500 ml # Voids 2 1 Laboratory Tests Test 02/25/20 15:00 02/26/20 08:05 Urine Opiates Screen Positive (NEGATIVE) H Urine Barbiturates Screen Negative (NEGATIVE) Phencyclidine (PCP) Screen Negative (NEGATIVE) Urine Amphetamines Screen Negative (NEGATIVE) Urine Benzodiazepines Screen Negative (NEGATIVE) Urine Cocaine Screen Negative (NEGATIVE) Urine Marijuana (THC) Screen Negative (NEGATIVE) White Blood Count 7.1 K/UL (4.8-10.8) Red Blood Count 4.65 M/UL (4.20-5.40) Hemoglobin 13.1 G/DL (12.0-16.0) Hematocrit 40.3 % (37.0-47.0) Mean Corpuscular Volume 87 FL (80-99) Mean Corpuscular Hemoglobin 28.1 PG (27.0-31.0) Mean Corpuscular Hemoglobin Concent 32.4 G/DL (32.0-36.0) Red Cell Distribution Width 12.6 % (11.6-14.8) Platelet Count 349 K/UL (150-450) Mean Platelet Volume 7.3 FL (6.5-10.1) Neutrophils (%) (Auto) 76.1 % (45.0-75.0) H Lymphocytes (%) (Auto) 12.5 % (20.0-45.0) L Monocytes (%) (Auto) 7.4 % (1.0-10.0) Eosinophils (%) (Auto) 3.2 % (0.0-3.0) H Basophils (%) (Auto) 0.8 % (0.0-2.0) Sodium Level 137 MMOL/L (136-145) Potassium Level 3.5 MMOL/L (3.5-5.1) Chloride Level 101 MMOL/L (98-107) Carbon Dioxide Level 27 MMOL/L (21-32) Anion Gap 9 mmol/L (5-15) Blood Urea Nitrogen 8 mg/dL (7-18) Creatinine 1.1 MG/DL (0.55-1.30) Estimat Glomerular Filtration Rate 51.0 mL/min (>60) Glucose Level 133 MG/DL (74-106) H Calcium Level 8.7 MG/DL (8.5-10.1) Total Bilirubin 0.3 MG/DL (0.2-1.0) Aspartate Amino Transf (AST/SGOT) 37 U/L (15-37) Alanine Aminotransferase (ALT/SGPT) 25 U/L (12-78) Alkaline Phosphatase 71 U/L (46-116) Ammonia 20 umol/L (11-32) Total Protein 6.7 G/DL (6.4-8.2) Albumin 2.9 G/DL (3.4-5.0) L Globulin 3.8 g/dL Albumin/Globulin Ratio 0.8 (1.0-2.7) L Alpha Fetoprotein Pending Carcinoembryonic Antigen Pending CA 19-9 Antigen Pending CA 125 Antigen Pending Height (Feet): 5 Height (Inches): 5.00 Weight (Pounds): 130 Medications Current Medications Medications (Trade) Dose Ordered Sig/Silverio Route PRN Reason Start Time Stop Time Status Last Admin Dose Admin Acetaminophen (Tylenol) 650 mg Q6H PRN ORAL Mild Pain (Pain Scale 1-3) 02/24/20 19:45 03/25/20 19:44 Acetaminophen/ Hydrocodone Bitart ([place] 5/325) 1 tab Q6H PRN ORAL Moderate Pain (Pain Scale 4-6) 02/24/20 19:45 03/02/20 19:44 02/25/20 20:13 Barium Sulfate (Readi-Cat 2) 450 ml NOW PRN ORAL Radiology Procedure 02/24/20 19:45 02/26/20 19:44 Iohexol (OMNIPAQUE-300 100ml) 100 ml NOW PRN INJ Radiology Procedure 02/24/20 19:45 02/26/20 19:44 Lidocaine HCl (Xylocaine 1% 30ml) 30 ml NOW PRN INJ Radiology Procedure 02/26/20 06:45 02/28/20 06:44 Ondansetron HCl (Zofran) 4 mg Q6H PRN IVP Nausea & Vomiting 02/24/20 19:45 03/25/20 19:44 Polyethylene Glycol (Miralax) 17 gm DAILY ORAL 02/26/20 11:15 03/27/20 11:14 02/26/20 11:10 Sodium Bicarbonate (Sodium Bicarbonate 4%) 1 ml NOW PRN IV Radiology Procedure 02/26/20 06:45 02/28/20 06:44 Assessment/Plan Problem List: (1) Ascites Assessment & Plan: Uterus/cervix: The uterus measures 6.3 x 4.7 x 4.3 cm is. Endometrial stripe measures 0.3 cm. No myometrial mass. Right ovary: Neither ovary is discretely visualized. No torsion. Left ovary: See above. Free fluid: Moderate to large quantity of ascites. Bladder: Unremarkable as visualized. Wall is normal thickness for degree of distention. Other findings: There is a 10.8 cm solid and cystic ill-defined mass within the pelvis worrisome for neoplasm. IMPRESSION: 1. Heterogeneous solid cystic mass lesion centrally within the pelvis worrisome for neoplasm. 2. Moderate to large quantity of ascites. 3. Neither ovary is discretely visualized. 4. Magnetic resonance imaging of the pelvis with gadolinium administration is highly advised to follow. 5. Findings are highly worrisome for neoplasm, possibly of ovarian etiology. ICD Codes: R18.8 - Other ascites SNOMED: [id number] (2) Abdominal pain Assessment & Plan: unlikely appendicitis, or bowel related likely related to ovarian masses which are likely neoplasm no acute surgical intervention pending tumor markers okay for diet will follow with exam and recs The appendix is not clearly visualized, but there are no findings to suggest acute appendicitis. No evidence of diverticulosis or diverticulitis. No small bowel distention. Ingested contrast has traversed the entirety of the small bowel, extends far distally as the transverse colon. There is a moderate amount of ascites fluid present. This demonstrates mildly increased attenuation. No free intraperitoneal gas. Distal esophagus, stomach, duodenum are unremarkable. The posterior aspect of the uterus is surrounded by abnormal soft tissue is seen surrounding the posterior circumference of the uterus. This presumably represents confluent adnexal masses. Overall dimensions of this area are approximately 6.4 cm transverse by 4.7 cm AP. There is extensive omental infiltration by tumor. Mesenteric implants are also demonstrated scattered along the mesenteric surface. The liver demonstrates equivocal slight surface nodularity. No focal abnormality. The gallbladder is mildly distended, otherwise unremarkable. The bile ducts are nondilated. The pancreas, spleen, adrenals, kidneys are unremarkable. No retroperitoneal or mesenteric mass or adenopathy. There is considerable infiltration of the right sided abdominal wall fat. There are bilateral pleural effusions, massive on the right, moderate to large on the left. There are compressive atelectatic changes at both lung bases. The bones are unremarkable. 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 Correlate with clinical history Infiltration of the right-sided abdominal wall fat. This could represent edema of hemodynamic origin, versus cellulitis. Correlate with clinical findings. Massive right, moderate to large left pleural effusions. Associated compressive atelectatic changes ICD Codes: R10.9 - Unspecified abdominal pain SNOMED: [id number] Farhat Del Valle Feb 26, 2020 13:17
--- NOTE | 2020-02-26 14:00 | General Progress Note ---
Subjective ROS Limited/Unobtainable: Yes Allergies: Coded Allergies: No Known Allergies (Unverified , 02/24/20) Objective Last 24 Hour Vital Signs Date Time Temp Pulse Resp B/P (MAP) Pulse Ox O2 Delivery O2 Flow Rate FiO2 02/26/20 12:00 99.3 92 17 108/81 (90) 99 02/26/20 09:00 Room Air 02/26/20 08:00 97.9 95 17 113/76 (88) 95 02/26/20 04:00 98.1 84 18 107/86 (93) 93 02/26/20 00:00 97.7 95 17 103/69 (80) 95 02/25/20 21:00 Room Air 02/25/20 20:00 99.3 98 20 101/69 (80) 95 02/25/20 16:00 98.1 88 20 105/69 (81) 98 Intake and Output 02/25/20 02/26/20 19:00 07:00 Intake Total 500 ml Balance 500 ml Intake Oral 500 ml # Voids 2 1 Laboratory Tests 02/25/20 15:00: Urine Opiates Screen PositiveH, Urine Barbiturates Screen Negative, Phencyclidine (PCP) Screen Negative, Urine Amphetamines Screen Negative, Urine Benzodiazepines Screen Negative, Urine Cocaine Screen Negative, Urine Marijuana (THC) Screen Negative 02/26/20 08:05: White Blood Count 7.1, Red Blood Count 4.65, Hemoglobin 13.1, Hematocrit 40.3, Mean Corpuscular Volume 87, Mean Corpuscular Hemoglobin 28.1, Mean Corpuscular Hemoglobin Concent 32.4, Red Cell Distribution Width 12.6, Platelet Count 349, Mean Platelet Volume 7.3, Neutrophils (%) (Auto) 76.1H, Lymphocytes (%) (Auto) 12.5L, Monocytes (%) (Auto) 7.4, Eosinophils (%) (Auto) 3.2H, Basophils (%) (Auto) 0.8, Sodium Level 137, Potassium Level 3.5, Chloride Level 101, Carbon Dioxide Level 27, Anion Gap 9, Blood Urea Nitrogen 8, Creatinine 1.1, Estimat Glomerular Filtration Rate 51.0, Glucose Level 133H, Calcium Level 8.7, Total Bilirubin 0.3, Aspartate Amino Transf (AST/SGOT) 37, Alanine Aminotransferase (ALT/SGPT) 25, Alkaline Phosphatase 71, Ammonia 20, Total Protein 6.7, Albumin 2.9L, Globulin 3.8, Albumin/Globulin Ratio 0.8L, Alpha Fetoprotein [Pending], Carcinoembryonic Antigen [Pending], CA 19-9 Antigen [Pending], CA 125 Antigen [Pending] Height (Feet): 5 Height (Inches): 5.00 Weight (Pounds): 130 General Appearance: alert EENT: normal ENT inspection Neck: supple Cardiovascular: normal rate Respiratory/Chest: decreased breath sounds Abdomen: normal bowel sounds, non tender, soft Extremities: non-tender Assessment/Plan Assessment/Plan: ? ovarian cancer fu tumor markers recommend NURSE MIDWIFE/CLINICAL INSTRUCTOR oncology consult fu biopsy add diuretics prn paracentesis Sebastian Bentley MD Feb 26, 2020 14:00
--- NOTE | 2020-02-26 14:29 | NUR ---
CASE MANAGEMENT:REVIEW SI;OVARIAN MASS BILATERAL ADNEXAL CONFLUENT MASS. DIFFUSE ASCITES. 99.3 95 18 113/76 95% ON RA BG 133 ALB 2.9 IS;NORCO PO Q6 PRN MED SURG STATUS DCP;FROM HOME PLAN; CT GUIDED NEEDLE BIOPSY 02/27/20 ENGINEER SPECIALIST-ONCOLOGIST CONSULT PENDING TUMOR MARKERS
[2020-02-26 16:00] VITALS: BP 110/73
--- NOTE | 2020-02-26 19:17 | NUR ---
NURSE HAND-OFF: Important Events on Shift:[safety and comfort, consent obtained fro CT guided biopsy] Patient Status: [stable] Diet: [regular] Pending Orders: [] Pending Results/Labs:[] Pending MD notification:[] Latest Vital Signs: Temperature 97.3 , Pulse 95 , B/P 110 /73 , Respiratory Rate 17 , O2 SAT 99 , Room Air, O2 Flow Rate . Vital Sign Comment: [] Latest [place] Fall Score: 20 Fall Risk: Low Risk Safety Measures: Call light Within Reach, Bed Alarm Zone 1, Side Rails Side Rails x2, Bed position Low and Locked. Fall Precautions: Yellow Socks Yellow Gown Door Sign Patient Fall Education Report given to [JUSTYNA Parks].
--- NOTE | 2020-02-26 19:42 | NUR ---
NURSE NOTES: Report received from Humaira JANSEN. Patient is noted to be awake and alert x 4. Patient is noted to be on room, no complaints of chest pain or shortness of breath. Patient is noted to have slight abdominal distention. Patient has no complaints of nausea or abdominal pain at this time. Patient has no other complaints at this time. Patient is noted to have left hand 22 lea IV access. Was endorsed to Charly JANSEN that patient is to have CT guided needle biopsy tomorrow, consent obtained and in chart. Bed is locked and in lowest position. Call light in reach. Will continue to follow plan of care.
[2020-02-26 20:00] VITALS: BP 114/72
--- NOTE | 2020-02-26 20:56 | NUR ---
NURSE NOTES: Dressing at site of paracentesis insertion found to be saturated. Charly JANSEN removed, cleaned site, and applied new abdominal pad dressing. Patient has no complaints at this time.
[2020-02-27] VITALS (11 sets, daily range): BP systolic 103–134; BP diastolic 54–79
[2020-02-27 06:37] LABS: BASOPHILS % (AUTO) 0.6 % (0.0-2.0); EOSINOPHILS % (AUTO) 4.5 % (0.0-3.0); HEMOGLOBIN 12.1 G/DL (12.0-16.0); LYMPHOCYTES % (AUTO) 17.5 % (20.0-45.0); MEAN CORPUSCULAR VOLUME 86 FL (80-99); MONOCYTES % (AUTO) 9.3 % (1.0-10.0); NEUTROPHILS % (AUTO) 68.1 % (45.0-75.0); PLATELET COUNT 379 K/UL (150-450); RED CELL DISTRIBUTION WIDTH 12.5 % (11.6-14.8); WHITE BLOOD COUNT 5.9 K/UL (4.8-10.8)
[2020-02-27 06:52] LABS: ALBUMIN 2.6 G/DL (3.4-5.0); ALBUMIN/GLOBULIN RATIO 0.9 (1.0-2.7); BILIRUBIN,TOTAL 0.2 MG/DL (0.2-1.0); CALCIUM 8.4 MG/DL (8.5-10.1); POTASSIUM 3.7 MMOL/L (3.5-5.1)
--- NOTE | 2020-02-27 07:08 | Consultation ---
Consult Note Consult Note REQUESTING MD: Gerardo Laurent REASON FOR CONSULT: Pleural effusion DOS: 02/27/2020 HPI 59-year-old female with history of 2 weeks of ascites in abdomen, over 2 months of weight loss and lack of appetite, and epigastric pain here requesting paracentesis. Patient has had multiple CT scans and ultrasound blood work recently done also she has diffuse ascites. No liver cirrhosis or other abnormalities noted. Also complains of urinary urgency. Denies any diarrhea or constipation. Denies any nausea or vomiting. Denies fever and chills. Abdomen is not rigid and not tender. Denies alcohol intake, tobacco smoke, drug use. Patient is currently under treatment for H. pylori. Seen by Gi. CXR has demonstrated moderate R effusion Allergies: Coded Allergies: No Known Allergies (Unverified , 02/24/20) Medication History Scheduled Amoxicillin* (Amoxil*), 500 MG ORAL EVERY 12 HOURS, (Reported) Clarithromycin* (Clarithromycin*), 500 MG PO Q12HR, (Reported) Furosemide* (Lasix*), 20 MG ORAL DAILY, (Reported) Metronidazole* (Flagyl*), 500 MG ORAL BID, (Reported) Omeprazole (Omeprazole), 20 MG ORAL BID, (Reported) Trimethoprim/Sulfamethoxazole (Bactrim Ds Tablet), 1 TAB ORAL TWICE A DAY, (Reported) Review of Symptoms General ROS: no weight loss or fever Psychological ROS: no depression or mood changes, no memory loss Ophthalmic ROS: no visual changes or eye irritation ENT ROS: no nasal congestion, hearing loss, dizziness Allergy and Immunology ROS: no allergic symptoms or urticaria Hematological and Lymphatic ROS: no swollen glands, unusual bleeding or bruising Endocrine ROS: no polyuria, polydipsia, weight changes, temperature intolerance Respiratory ROS: no cough, shortness of breath, or wheezing Cardiovascular ROS: no chest pain or dyspnea on exertion Gastrointestinal ROS: + abd pain Musculoskeletal ROS: no myalgias or arthralgias Neurological ROS: no TIA or stroke symptoms Physical Exam General appearance: alert, cooperative, no distress, appears stated age Head: Normocephalic, without obvious abnormality, atraumatic Eyes: conjunctivae/corneas clear. PERRL, EOM's intact. Fundi benign Throat: Lips, mucosa, and tongue normal. Teeth and gums normal Neck: supple, symmetrical, trachea midline, no adenopathy Lungs: Decreased breath sounds R side Heart: regular rate and rhythm, S1, S2 normal, no murmur, click, rub or gallop Abdomen: soft, non-tender. Bowel sounds normal. No masses, no organomegaly Extremities: extremities normal, atraumatic, no cyanosis or edema Pulses: 2+ and symmetric Skin: Skin color, texture, turgor normal. Neurologic: Grossly normal Labs: noted Imaging: reviewed Assessment/Plan Probable primary ovarian or sarcoma v other process Coagulopathy Right pleural effusion Will request R thoracentesis Luis Enrique Gilman MD Feb 27, 2020 07:08
--- NOTE | 2020-02-27 07:23 | NUR ---
NURSE NOTES: Received report from JUSTYNA Parks. Patient in bed, awake, alert and oriented x 4, no SOB, bed in lowest position with breaks engaged and alarm on, on room air, denies any pain or discomfort at this time, on room air, IV line intact and patent, will continue to monitor and proceed with plan of care, call light within reach at all times.
--- NOTE | 2020-02-27 07:27 | NUR ---
NURSE HAND-OFF: Important Events on Shift: patient slept through most of shift with no complaints. changed dressing on abdomen one time. Patient Status: full code Diet: regular Pending Orders: none Pending Results/Labs:none Pending MD notification:none Latest Vital Signs: Temperature 98.7 , Pulse 89 , B/P 134 /69 , Respiratory Rate 20 , O2 SAT 98 , Room Air, O2 Flow Rate . Vital Sign Comment: Within normal limits. Latest [place] Fall Score: 20 Fall Risk: Low Risk Safety Measures: Call light Within Reach, Bed Alarm Zone 1, Side Rails Side Rails x2, Bed position Low and Locked. Fall Precautions: Yellow Socks Yellow Gown Door Sign Patient Fall Education Report given to Humaira JANSEN.
[2020-02-27] MEDS: Miralax 17gm pkt ORAL SCH (08:07)
[2020-02-27] MEDS: Spironolactone 50mg tab ORAL SCH (08:08)
--- NOTE | 2020-02-27 08:31 | General Progress Note ---
Subjective ROS Limited/Unobtainable: Yes Allergies: Coded Allergies: No Known Allergies (Unverified , 02/24/20) Objective Last 24 Hour Vital Signs Date Time Temp Pulse Resp B/P (MAP) Pulse Ox O2 Delivery O2 Flow Rate FiO2 02/27/20 04:00 98.7 89 20 134/69 (90) 98 02/27/20 00:00 99.1 95 20 120/68 (85) 98 02/26/20 21:00 Room Air 02/26/20 20:00 99.0 97 20 114/72 (86) 97 02/26/20 16:00 97.3 95 17 110/73 (85) 99 02/26/20 12:00 99.3 92 17 108/81 (90) 99 02/26/20 09:00 Room Air Intake and Output 02/26/20 02/27/20 19:00 07:00 Intake Total 1140 ml 240 ml Balance 1140 ml 240 ml Intake Oral 1140 ml 240 ml # Voids 4 2 Laboratory Tests 02/27/20 05:20: White Blood Count 5.9, Red Blood Count 4.30, Hemoglobin 12.1, Hematocrit 37.0, Mean Corpuscular Volume 86, Mean Corpuscular Hemoglobin 28.3, Mean Corpuscular Hemoglobin Concent 32.8, Red Cell Distribution Width 12.5, Platelet Count 379, Mean Platelet Volume 6.8, Neutrophils (%) (Auto) 68.1, Lymphocytes (%) (Auto) 17.5L, Monocytes (%) (Auto) 9.3, Eosinophils (%) (Auto) 4.5H, Basophils (%) (Auto) 0.6, Sodium Level 138, Potassium Level 3.7, Chloride Level 103, Carbon Dioxide Level 29, Anion Gap 6, Blood Urea Nitrogen 5L, Creatinine 1.0, Estimat Glomerular Filtration Rate 56.9, Glucose Level 92, Calcium Level 8.4L, Total Bilirubin 0.2, Aspartate Amino Transf (AST/SGOT) 30, Alanine Aminotransferase (ALT/SGPT) 19, Alkaline Phosphatase 64, Total Protein 5.4L, Albumin 2.6L, Globulin 2.8, Albumin/Globulin Ratio 0.9L Height (Feet): 5 Height (Inches): 5.00 Weight (Pounds): 130 General Appearance: alert EENT: normal ENT inspection Neck: supple Cardiovascular: normal rate Respiratory/Chest: decreased breath sounds Abdomen: hypoactive bowel sounds, distended Assessment/Plan Assessment/Plan: ovarian cancer malignant ascites ca 125 24 K recommend [employer] oncology consult fu biopsy on diuretics prn paracentesis Sebastian Bentley MD Feb 27, 2020 08:31
--- NOTE | 2020-02-27 09:22 | NUR ---
RD ASSESSMENT & RECOMMENDATIONS SEE CARE ACTIVITY FOR COMPLETE ASSESSMENT DAILY ESTIMATED NEEDS: Needs based on Ascites, possible CA/ 62kg 25-30 kcals/kg 6671-3509 total kcals 1-1.5 g protein/kg 62-93 g total protein 20-25 mL/kg 7076-7526 total fluid mLs NUTRITION DIAGNOSIS: Decreased sodium intake needs R/T ascites as evidenced by thoracentesis pending, pt on diuretics. CURRENT DIET:REGULAR PO DIET RECOMMENDATIONS: LOW NA ADDITIONAL RECOMMENDATIONS: * Daily standing wt, monitor wt trend * Monitor lytes daily w/ diuretics, replete as needed * Monitor PO intake closely and tolerance * Ensure Enlive once daily for now (350kcal/20g prot)
--- NOTE | 2020-02-27 10:15 | Hematology/Onc Progress Note ---
Assessment/Plan Assessment/Plan Assessment/Plan # Malignancy worisome in the ovary, can be primary ovarian or sarcoma v other process, p/w abd pain --> CT Complex bilateral adnexal region confluent mass, as described, presumably neoplastic, Massive right, moderate to large left pleural effusions. Associated compressive atelectatic changes, Evidence of disseminated intra- abdominal neoplasm, with mesenteric and fairly extensive omental implants, most likely metastatic ovarian neoplasm --> ca 125 2494 --> imaging on prn basis --> consider eval with captain room service-onc for potential resection --> may get a biopsy at this time, has been ordered (consider captain room service eval) --> may do paracentesis, send off for cytology # Coagulopathy with elev ptt/inr --> vit k/ffp as needed # Bloating is likely related to ascites --> para prn # Hpylori? --> abx as needed per gi # Nausea/vomting --> on antiemetics # Dvt ppx scds Appreciate consultation and martha RN Subjective HEENT: Denies: no symptoms, eye pain, blurred vision, tearing, double vision, ear pain, ear discharge, nose pain, nose congestion, throat pain, throat swelling, mouth pain, mouth swelling, other Cardiovascular: Denies: no symptoms, chest pain, edema, irregular heart rate, lightheadedness, palpitations, syncope, other Respiratory: Denies: no symptoms, cough, shortness of breath, SOB with excertion, SOB at rest, sputum, wheezing, other Gastrointestinal/Abdominal: Denies: no symptoms, abdomen distended, abdominal pain, black stools, tarry stools, blood in stool, constipated, diarrhea, difficulty swallowing, nausea, poor appetite, poor fluid intake, rectal bleeding, vomiting, other Genitourinary: Denies: no symptoms, burning, discharge, frequency, flank pain, hematuria, incontinence, pain, urgency, other Hematologic/Lymphatic: Denies: no symptoms, anemia, easy bleeding, easy bruising, adenopathy, other Allergies: Coded Allergies: No Known Allergies (Unverified , 02/24/20) Subjective 02/26 labs reviewed, no night sweats, meds reviewed, ca 125 markedly elevated Objective Objective Current Medications Medications (Trade) Dose Ordered Sig/Silverio Route PRN Reason Start Time Stop Time Status Last Admin Dose Admin Acetaminophen (Tylenol) 650 mg Q6H PRN ORAL Mild Pain (Pain Scale 1-3) 02/24/20 19:45 03/25/20 19:44 Acetaminophen/ Hydrocodone Bitart ([place] 5/325) 1 tab Q6H PRN ORAL Moderate Pain (Pain Scale 4-6) 02/24/20 19:45 03/02/20 19:44 02/25/20 20:13 Furosemide (Lasix) 20 mg DAILY IV 02/27/20 09:00 03/28/20 08:59 02/27/20 08:08 Lidocaine HCl (Xylocaine 1% 30ml) 30 ml NOW PRN INJ Radiology Procedure 02/26/20 06:45 02/28/20 06:44 Ondansetron HCl (Zofran) 4 mg Q6H PRN IVP Nausea & Vomiting 02/24/20 19:45 03/25/20 19:44 Polyethylene Glycol (Miralax) 17 gm DAILY ORAL 02/26/20 11:15 03/27/20 11:14 02/27/20 08:07 Sodium Bicarbonate (Sodium Bicarbonate 4%) 1 ml NOW PRN IV Radiology Procedure 02/26/20 06:45 02/28/20 06:44 Spironolactone (Aldactone) 50 mg DAILY ORAL 02/27/20 09:00 03/28/20 08:59 02/27/20 08:08 Last 24 Hour Vital Signs Date Time Temp Pulse Resp B/P (MAP) Pulse Ox O2 Delivery O2 Flow Rate FiO2 02/27/20 09:00 Room Air 02/27/20 08:00 98.1 93 18 125/54 (77) 96 02/27/20 04:00 98.7 89 20 134/69 (90) 98 02/27/20 00:00 99.1 95 20 120/68 (85) 98 02/26/20 21:00 Room Air 02/26/20 20:00 99.0 97 20 114/72 (86) 97 02/26/20 16:00 97.3 95 17 110/73 (85) 99 02/26/20 12:00 99.3 92 17 108/81 (90) 99 02/26/20 09:00 Room Air 02/26/20 08:00 97.9 95 17 113/76 (88) 95 10/29/20 04:00 98.1 84 18 107/86 (93) 93 02/26/20 00:00 97.7 95 17 103/69 (80) 95 02/25/20 21:00 Room Air 02/25/20 20:00 99.3 98 20 101/69 (80) 95 02/25/20 16:00 98.1 88 20 105/69 (81) 98 02/25/20 12:00 97.7 80 19 112/75 (87) 100 Intake and Output 02/26/20 02/27/20 18:59 06:59 Intake Total 1140 ml 240 ml Balance 1140 ml 240 ml Intake Oral 1140 ml 240 ml # Voids 4 2 Labs Test 02/24/20 13:10 02/24/20 14:00 02/24/20 14:10 02/24/20 15:45 White Blood Count 7.5 K/UL (4.8-10.8) Red Blood Count 5.54 M/UL (4.20-5.40) Hemoglobin 15.1 G/DL (12.0-16.0) Hematocrit 47.7 % (37.0-47.0) Mean Corpuscular Volume 86 FL (80-99) Mean Corpuscular Hemoglobin 27.3 PG (27.0-31.0) Mean Corpuscular Hemoglobin Concent 31.7 G/DL (32.0-36.0) Red Cell Distribution Width 12.3 % (11.6-14.8) Platelet Count 302 K/UL (150-450) Mean Platelet Volume 7.1 FL (6.5-10.1) Neutrophils (%) (Auto) 80.6 % (45.0-75.0) Lymphocytes (%) (Auto) 12.7 % (20.0-45.0) Monocytes (%) (Auto) 5.3 % (1.0-10.0) Eosinophils (%) (Auto) 0.9 % (0.0-3.0) Basophils (%) (Auto) 0.4 % (0.0-2.0) Differential Total Cells Counted 100 Neutrophils % (Manual) 72 % (45-75) Lymphocytes % (Manual) 18 % (20-45) Monocytes % (Manual) 9 % (1-10) Eosinophils % (Manual) 1 % (0-3) Basophils % (Manual) 0 % (0-2) Band Neutrophils 0 % (0-8) Other Cell Type Pathologist review Platelet Estimate Adequate Platelet Morphology Normal Red Blood Cell Morphology Normal Prothrombin Time 11.6 SEC (9.30-11.50) Prothromb Time International Ratio 1.1 (0.9-1.1) Activated Partial Thromboplast Time 22 SEC (23-33) Sodium Level 138 MMOL/L (136-145) Potassium Level 4.2 MMOL/L (3.5-5.1) Chloride Level 98 MMOL/L (98-107) Carbon Dioxide Level 28 MMOL/L (21-32) Anion Gap 13 mmol/L (5-15) Blood Urea Nitrogen 9 mg/dL (7-18) Creatinine 1.1 MG/DL (0.55-1.30) Estimat Glomerular Filtration Rate 51.0 mL/min (>60) Glucose Level 106 MG/DL (74-106) Calcium Level 9.5 MG/DL (8.5-10.1) Total Bilirubin 0.3 MG/DL (0.2-1.0) Aspartate Amino Transf (AST/SGOT) 46 U/L (15-37) Alanine Aminotransferase (ALT/SGPT) 28 U/L (12-78) Alkaline Phosphatase 79 U/L (46-116) Total Creatine Kinase 101 U/L (26-308) Troponin I 0.000 ng/mL (0.000-0.056) Total Protein 7.9 G/DL (6.4-8.2) Albumin 3.5 G/DL (3.4-5.0) Globulin 4.4 g/dL Albumin/Globulin Ratio 0.8 (1.0-2.7) Lipase 193 U/L (73-393) Serum Alcohol < 3 mg/dL Urine Opiates Screen Negative (NEGATIVE) Urine Barbiturates Screen Negative (NEGATIVE) Phencyclidine (PCP) Screen Negative (NEGATIVE) Urine Amphetamines Screen Negative (NEGATIVE) Urine Benzodiazepines Screen Negative (NEGATIVE) Urine Cocaine Screen Negative (NEGATIVE) Urine Marijuana (THC) Screen Negative (NEGATIVE) Urine Color Yellow Urine Appearance Clear Urine pH 5 (4.5-8.0) Urine Specific [place] 1.025 (1.005-1.035) Urine Protein 2+ (NEGATIVE) Urine Glucose (UA) Negative (NEGATIVE) Urine Ketones 2+ (NEGATIVE) Urine Blood 2+ (NEGATIVE) Urine Nitrite Negative (NEGATIVE) Urine Bilirubin Negative (NEGATIVE) Urine Urobilinogen Normal MG/DL (0.0-1.0) Urine Leukocyte Esterase 1+ (NEGATIVE) Urine RBC 2-4 /HPF (0 - 2) Urine WBC 0-2 /HPF (0 - 2) Urine Squamous Epithelial Cells Few /LPF (NONE/OCC) Urine Bacteria Few /HPF (NONE) Urine Mucus Moderate /LPF (NONE/OCC) Body Fluid Source Peritoneal Body Fluid Volume 3.5 mL Body Fluid Appearance Yellow, hazy (Clear) Body Fluid RBC 30485 /CUMM Body Fluid Total Nucleated Cells 0 /CUMM Body Fluid Polynuclear WBCs (%) 10 % Body Fluid Mononuclear WBCs (%) 85 % Body Fluid Mesothelial Cells (%) 5 % Body Fluid Glucose 64 mg/dL (.) Body Fluid Total Protein 4.8 g/dL (.) Body Fluid Comment Na Test 02/25/20 08:25 02/25/20 15:00 02/26/20 08:05 02/27/20 05:20 White Blood Count 6.8 K/UL (4.8-10.8) 7.1 K/UL (4.8-10.8) 5.9 K/UL (4.8-10.8) Red Blood Count 4.55 M/UL (4.20-5.40) 4.65 M/UL (4.20-5.40) 4.30 M/UL (4.20-5.40) Hemoglobin 12.6 G/DL (12.0-16.0) 13.1 G/DL (12.0-16.0) 12.1 G/DL (12.0-16.0) Hematocrit 39.1 % (37.0-47.0) 40.3 % (37.0-47.0) 37.0 % (37.0-47.0) Mean Corpuscular Volume 86 FL (80-99) 87 FL (80-99) 86 FL (80-99) Mean Corpuscular Hemoglobin 27.8 PG (27.0-31.0) 28.1 PG (27.0-31.0) 28.3 PG (27.0-31.0) Mean Corpuscular Hemoglobin Concent 32.3 G/DL (32.0-36.0) 32.4 G/DL (32.0-36.0) 32.8 G/DL (32.0-36.0) Red Cell Distribution Width 12.1 % (11.6-14.8) 12.6 % (11.6-14.8) 12.5 % (11.6-14.8) Platelet Count 434 K/UL (150-450) 349 K/UL (150-450) 379 K/UL (150-450) Mean Platelet Volume 6.7 FL (6.5-10.1) 7.3 FL (6.5-10.1) 6.8 FL (6.5-10.1) Neutrophils (%) (Auto) 76.7 % (45.0-75.0) 76.1 % (45.0-75.0) 68.1 % (45.0-75.0) Lymphocytes (%) (Auto) 11.9 % (20.0-45.0) 12.5 % (20.0-45.0) 17.5 % (20.0-45.0) Monocytes (%) (Auto) 8.4 % (1.0-10.0) 7.4 % (1.0-10.0) 9.3 % (1.0-10.0) Eosinophils (%) (Auto) 2.5 % (0.0-3.0) 3.2 % (0.0-3.0) 4.5 % (0.0-3.0) Basophils (%) (Auto) 0.5 % (0.0-2.0) 0.8 % (0.0-2.0) 0.6 % (0.0-2.0) Sodium Level 138 MMOL/L (136-145) 137 MMOL/L (136-145) 138 MMOL/L (136-145) Potassium Level 3.7 MMOL/L (3.5-5.1) 3.5 MMOL/L (3.5-5.1) 3.7 MMOL/L (3.5-5.1) Chloride Level 102 MMOL/L (98-107) 101 MMOL/L (98-107) 103 MMOL/L (98-107) Carbon Dioxide Level 30 MMOL/L (21-32) 27 MMOL/L (21-32) 29 MMOL/L (21-32) Anion Gap 6 mmol/L (5-15) 9 mmol/L (5-15) 6 mmol/L (5-15) Blood Urea Nitrogen 9 mg/dL (7-18) 8 mg/dL (7-18) 5 mg/dL (7-18) Creatinine 1.1 MG/DL (0.55-1.30) 1.1 MG/DL (0.55-1.30) 1.0 MG/DL (0.55-1.30) Estimat Glomerular Filtration Rate 51.0 mL/min (>60) 51.0 mL/min (>60) 56.9 mL/min (>60) Glucose Level 101 MG/DL (74-106) 133 MG/DL (74-106) 92 MG/DL (74-106) Calcium Level 8.5 MG/DL (8.5-10.1) 8.7 MG/DL (8.5-10.1) 8.4 MG/DL (8.5-10.1) Total Bilirubin 0.3 MG/DL (0.2-1.0) 0.3 MG/DL (0.2-1.0) 0.2 MG/DL (0.2-1.0) Aspartate Amino Transf (AST/SGOT) 39 U/L (15-37) 37 U/L (15-37) 30 U/L (15-37) Alanine Aminotransferase (ALT/SGPT) 22 U/L (12-78) 25 U/L (12-78) 19 U/L (12-78) Alkaline Phosphatase 61 U/L (46-116) 71 U/L (46-116) 64 U/L (46-116) Total Protein 5.8 G/DL (6.4-8.2) 6.7 G/DL (6.4-8.2) 5.4 G/DL (6.4-8.2) Albumin 2.8 G/DL (3.4-5.0) 2.9 G/DL (3.4-5.0) 2.6 G/DL (3.4-5.0) Globulin 3.0 g/dL 3.8 g/dL 2.8 g/dL Albumin/Globulin Ratio 0.9 (1.0-2.7) 0.8 (1.0-2.7) 0.9 (1.0-2.7) Urine Opiates Screen Positive (NEGATIVE) Urine Barbiturates Screen Negative (NEGATIVE) Phencyclidine (PCP) Screen Negative (NEGATIVE) Urine Amphetamines Screen Negative (NEGATIVE) Urine Benzodiazepines Screen Negative (NEGATIVE) Urine Cocaine Screen Negative (NEGATIVE) Urine Marijuana (THC) Screen Negative (NEGATIVE) Ammonia 20 umol/L (11-32) Alpha Fetoprotein 3.2 ng/mL (0.0-8.3) Carcinoembryonic Antigen 3.1 ng/mL (0.0-4.7) CA 125 Antigen 2494.0 U/mL (0.0-38.1) Height (Feet): 5 Height (Inches): 5.00 Weight (Pounds): 130 Objective Physical Exam General appearance: alert, cooperative, no distress, appears stated age Head: Normocephalic, without obvious abnormality, atraumatic Eyes: conjunctivae/corneas clear. PERRL, EOM's intact. Fundi benign Throat: Lips, mucosa, and tongue normal. Teeth and gums normal Neck: supple, symmetrical, trachea midline, no adenopathy Lungs: clear to auscultation bilaterally Heart: regular rate and rhythm, S1, S2 normal, no murmur, click, rub or gallop Abdomen: soft, non-tender. Bowel sounds normal. No masses, no organomegaly Extremities: extremities normal, atraumatic, no cyanosis or edema Pulses: 2+ and symmetric Skin: Skin color, texture, turgor normal. Neurologic: Grossly normal Jeremie Chicas MD Feb 27, 2020 10:15
--- NOTE | 2020-02-27 11:10 | Internal Med Progress Note ---
Subjective Physician Name Kimberly Laurent Attending Physician Kimberly Laurent M.D. Current Medications Medications (Trade) Dose Ordered Sig/Silverio Route PRN Reason Start Time Stop Time Status Last Admin Dose Admin Acetaminophen (Tylenol) 650 mg Q6H PRN ORAL Mild Pain (Pain Scale 1-3) 02/24/20 19:45 03/25/20 19:44 Acetaminophen/ Hydrocodone Bitart ([place] 5/325) 1 tab Q6H PRN ORAL Moderate Pain (Pain Scale 4-6) 02/24/20 19:45 03/02/20 19:44 02/25/20 20:13 Furosemide (Lasix) 20 mg DAILY IV 02/27/20 09:00 03/28/20 08:59 02/27/20 08:08 Lidocaine HCl (Xylocaine 1% 30ml) 30 ml NOW PRN INJ Radiology Procedure 02/26/20 06:45 02/28/20 06:44 Ondansetron HCl (Zofran) 4 mg Q6H PRN IVP Nausea & Vomiting 02/24/20 19:45 03/25/20 19:44 Polyethylene Glycol (Miralax) 17 gm DAILY ORAL 02/26/20 11:15 03/27/20 11:14 02/27/20 08:07 Sodium Bicarbonate (Sodium Bicarbonate 4%) 1 ml NOW PRN IV Radiology Procedure 02/26/20 06:45 02/28/20 06:44 Spironolactone (Aldactone) 50 mg DAILY ORAL 02/27/20 09:00 03/28/20 08:59 02/27/20 08:08 Allergies: Coded Allergies: No Known Allergies (Unverified , 02/24/20) ROS Limited/Unobtainable: No Constitutional: Reports: weakness HEENT: Denies: no symptoms, eye pain, blurred vision, tearing, double vision, ear pain, ear discharge, nose pain, nose congestion, throat pain, throat swelling, mouth pain, mouth swelling, other Cardiovascular: Denies: no symptoms, chest pain, edema, irregular heart rate, lightheadedness, palpitations, syncope, other Respiratory: Denies: no symptoms, cough, orthopnea, shortness of breath, SOB with excertion, SOB at rest, sputum, stridor, wheezing, other Gastrointestinal/Abdominal: Denies: no symptoms, abdomen distended, abdominal pain, black stools, tarry stools, blood in stool, constipated, diarrhea, difficulty swallowing, nausea, poor appetite, poor fluid intake, rectal bleeding, vomiting, other Genitourinary: Denies: no symptoms, burning, discharge, frequency, flank pain, hematuria, incontinence, pain, urgency, other Neurologic/Psychiatric: Denies: no symptoms, anxiety, depressed, emotional problems, headache, numbness, paresthesia, pre-existing deficit, seizure, tingling, tremors, weakness, other Subjective CT abd obained concerning for metastatic ovarian malignancy Objective Last Vital Signs Date Time Temp Pulse Resp B/P (MAP) Pulse Ox O2 Delivery O2 Flow Rate FiO2 02/27/20 09:00 Room Air 02/27/20 08:00 98.1 93 18 125/54 (77) 96 02/24/20 13:15 99 Laboratory Tests Test 02/27/20 05:20 White Blood Count 5.9 K/UL (4.8-10.8) Red Blood Count 4.30 M/UL (4.20-5.40) Hemoglobin 12.1 G/DL (12.0-16.0) Hematocrit 37.0 % (37.0-47.0) Mean Corpuscular Volume 86 FL (80-99) Mean Corpuscular Hemoglobin 28.3 PG (27.0-31.0) Mean Corpuscular Hemoglobin Concent 32.8 G/DL (32.0-36.0) Red Cell Distribution Width 12.5 % (11.6-14.8) Platelet Count 379 K/UL (150-450) Mean Platelet Volume 6.8 FL (6.5-10.1) Neutrophils (%) (Auto) 68.1 % (45.0-75.0) Lymphocytes (%) (Auto) 17.5 % (20.0-45.0) L Monocytes (%) (Auto) 9.3 % (1.0-10.0) Eosinophils (%) (Auto) 4.5 % (0.0-3.0) H Basophils (%) (Auto) 0.6 % (0.0-2.0) Sodium Level 138 MMOL/L (136-145) Potassium Level 3.7 MMOL/L (3.5-5.1) Chloride Level 103 MMOL/L (98-107) Carbon Dioxide Level 29 MMOL/L (21-32) Anion Gap 6 mmol/L (5-15) Blood Urea Nitrogen 5 mg/dL (7-18) L Creatinine 1.0 MG/DL (0.55-1.30) Estimat Glomerular Filtration Rate 56.9 mL/min (>60) Glucose Level 92 MG/DL (74-106) Calcium Level 8.4 MG/DL (8.5-10.1) L Total Bilirubin 0.2 MG/DL (0.2-1.0) Aspartate Amino Transf (AST/SGOT) 30 U/L (15-37) Alanine Aminotransferase (ALT/SGPT) 19 U/L (12-78) Alkaline Phosphatase 64 U/L (46-116) Total Protein 5.4 G/DL (6.4-8.2) L Albumin 2.6 G/DL (3.4-5.0) L Globulin 2.8 g/dL Albumin/Globulin Ratio 0.9 (1.0-2.7) L Intake and Output 02/26/20 02/27/20 18:59 06:59 Intake Total 1140 ml 240 ml Balance 1140 ml 240 ml Intake Oral 1140 ml 240 ml # Voids 4 2 Assessment/Plan Assessment/Plan #Abd pain #concerns for metastatic ovarian malignancy #Bloating #Hpylori? 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 Correlate with clinical history Infiltration of the right-sided abdominal wall fat. This could represent edema of hemodynamic origin, versus cellulitis. Correlate with clinical findings. Massive right, moderate to large left pleural effusions. Associated compressive atelectatic changes Kimberly Laurent M.D. Feb 27, 2020 11:10
--- NOTE | 2020-02-27 13:41 | Pre-Procedure Note/Attestation ---
Pre-Procedure Note/Attestation Complete Prior to Procedure Planned Procedure: not applicable Procedure Narrative: paracentesis Indications for Procedure Pre-Operative Diagnosis: ascites Attestation I attest that I discussed the nature of the procedure; its benefits; risks and complications; and alternatives (and the risks and benefits of such alternatives), prior to the procedure, with the patient (or the patient's legal manufacturer's service representative). I attest that, if there was a reasonable possibility of needing a blood mooney sfusion, the patient (or the patient's legal manufacturer's service representative) was given the [facility] standardized written summary, pursuant to the Saul Judit Blood Safety Act ([place] Health and Safety Code # 1645, as amended). I attest that I re-evaluated the patient just prior to the surgery and that there has been no change in the patient's H&P, except as documented below: Chacorta Flores MD Feb 27, 2020 13:41
--- NOTE | 2020-02-27 13:41 | Pre-Procedure Note/Attestation ---
Pre-Procedure Note/Attestation Complete Prior to Procedure Planned Procedure: right Procedure Narrative: Thoracentesis ho Indications for Procedure Pre-Operative Diagnosis: pleural effusion Attestation I attest that I discussed the nature of the procedure; its benefits; risks and complications; and alternatives (and the risks and benefits of such alternatives), prior to the procedure, with the patient (or the patient's legal rental representative). I attest that, if there was a reasonable possibility of needing a blood transfusion, the patient (or the patient's legal rental representative) was given the [facility] standardized written summary, pursuant to the Saul Judit Blood Safety Act ([place] Health and Safety Code # 1645, as amended). I attest that I re-evaluated the patient just prior to the surgery and that there has been no change in the patient's H&P, except as documented below: Chacorta Flores MD Feb 27, 2020 13:41
--- NOTE | 2020-02-27 13:42 | Pre-Procedure Note/Attestation ---
Pre-Procedure Note/Attestation Complete Prior to Procedure Planned Procedure: not applicable Procedure Narrative: abdominal biopsy Indications for Procedure Pre-Operative Diagnosis: abdominal tumor Attestation I attest that I discussed the nature of the procedure; its benefits; risks and complications; and alternatives (and the risks and benefits of such alternatives), prior to the procedure, with the patient (or the patient's legal patient admitting representative). I attest that, if there was a reasonable possibility of needing a blood transfusion, the patient (or the patient's legal patient admitting representative) was given the [facility] standardized written summary, pursuant to the Saul Lawtey Blood Safety Act ([place] Health and Safety Code # 1645, as amended). I attest that I re-evaluated the patient just prior to the surgery and that there has been no change in the patient's H&P, except as documented below: Chacorta Flores MD Feb 27, 2020 13:42
[2020-02-27] MEDS ORDERED: SIMETHICONE80 MG ORAL (14:10)
--- NOTE | 2020-02-27 15:09 | Brief Operative Note ---
Immediate Post Operative Note Operative Note Pre-op Diagnosis: abdominal tumor Procedure: thoracentesis Post-op Diagnosis: same as pre-op Surgeon: Kody Huang Anesthesia: local Specimen: none Complications: none Fluids: none Implant(s) used?: No Chacorta Huang MD Feb 27, 2020 15:09
--- NOTE | 2020-02-27 15:10 | Brief Operative Note ---
Immediate Post Operative Note Operative Note Pre-op Diagnosis: abdominal tumor Procedure: paracentesis Post-op Diagnosis: same as pre-op Surgeon: Kody FLORES Anesthesia: local Specimen: yes - 50 ml fluid sent to lab Complications: none Fluids: none Implant(s) used?: No Chacorta Flores MD Feb 27, 2020 15:10
--- NOTE | 2020-02-27 15:12 | Diagnostic Imaging Report ---
Indication: Status post thoracentesis, history of shortness of breath and pleural fluid Technique: One view of the chest Comparison: none Findings: Some atelectatic changes are seen in the right upper lobe. There is minimal residual blunting the right costophrenic sulcus. Lungs and pleural spaces are otherwise clear. There is no pneumothorax. Normal heart size. Impression: Minimal residual right pleural effusion, status post thoracentesis No pneumothorax Right upper lung subsegmental atelectasis
--- NOTE | 2020-02-27 15:13 | Diagnostic Imaging Report ---
Indications: Ascites Technique: Ultrasound used to localize optimal puncture site. Sterile prepping and draping left lower quadrant. Local anesthesia with 1% lidocaine. Under real-time ultrasound guidance, puncture peritoneal space using paracentesis needle. Stylet removed. Catheter placed to vacuum bottle suction. Total 1.7 liters of fluid aspirated. Specimen sent to lab for analysis. Patient tolerated procedure well, without immediate complication. Findings: Followup sonography demonstrates complete resolution of peritoneal fluid. Impression: Successful ultrasound-guided paracentesis, yielding 1.7 liters of fluid
--- NOTE | 2020-02-27 15:14 | NUR ---
RADIOLOGY DEPT., CHEST FOR THORACENTHESIS HAS BEEN PERFORMED-MEG
--- NOTE | 2020-02-27 15:59 | NUR ---
CASE MANAGEMENT:REVIEW SI;S/P PARACENTESIS TODAY OVARIAN MASS BILATERAL ADNEXAL CONFLUENT MASS. DIFFUSE ASCITES 99.1 97 20 134/69 95% ON RA ALB 2.6 IS;ALDACTONE PO QD LASIX IV QD US GUIDED PARACENTESIS~1.7 LITERS ASPIRATED MED SURG STATUS DCP;FROM HOME
--- NOTE | 2020-02-27 16:00 | Brief Operative Note ---
Immediate Post Operative Note Operative Note Pre-op Diagnosis: abdominal tumor Procedure: paracentesis Post-op Diagnosis: same as pre-op Surgeon: whit singh Anesthesia: local Specimen: yes - 3 18 G cores Complications: none Fluids: none Implant(s) used?: No Chacorta Singh MD Feb 27, 2020 16:00
--- NOTE | 2020-02-27 16:13 | Diagnostic Imaging Report ---
Indications: Pleural effusion Technique: Ultrasound used to localize optimal puncture site. Sterile prepping and draping right chest. Local anesthesia with 1% lidocaine. Under real-time ultrasound guidance, puncture pleural space using thoracentesis needle. Stylet removed. Catheter placed to vacuum bottle suction. Total 1600 milliliters of cloudy dark brown fluid aspirated. Patient tolerated procedure well, without immediate complication. Findings: Followup sonography demonstrates near complete resolution of pleural fluid. Impression: Successful ultrasound-guided thoracentesis, yielding 1600 milliliters of fluid
--- NOTE | 2020-02-27 16:55 | Surgery Progress Note ---
Surgery Progress Note Subjective Additional Comments no acute events comfortable stable Objective Last 24 Hour Vital Signs Date Time Temp Pulse Resp B/P (MAP) Pulse Ox O2 Delivery O2 Flow Rate FiO2 02/27/20 16:00 97.3 95 17 112/73 (86) 99 02/27/20 15:51 97.3 92 20 114/75 (88) 98 92 02/27/20 15:46 97.0 90 20 110/79 (89) 99 90 02/27/20 15:41 97.2 89 22 117/74 (88) 99 89 02/27/20 15:30 97.6 84 19 103/70 (81) 98 84 02/27/20 15:25 84 19 02/27/20 12:00 97.9 95 17 108/71 (83) 95 02/27/20 09:00 Room Air 02/27/20 08:00 98.1 93 18 125/54 (77) 96 02/27/20 04:00 98.7 89 20 134/69 (90) 98 02/27/20 00:00 99.1 95 20 120/68 (85) 98 02/26/20 21:00 Room Air 02/26/20 20:00 99.0 97 20 114/72 (86) 97 I&O Intake and Output 02/26/20 02/27/20 19:00 07:00 Intake Total 1140 ml 240 ml Balance 1140 ml 240 ml Intake Oral 1140 ml 240 ml # Voids 4 2 Cardiovascular: RSR Respiratory: clear Abdomen: soft, tenderness, present bowel sounds Extremities: no tenderness, no cyanosis Laboratory Tests Test 02/27/20 05:20 White Blood Count 5.9 K/UL (4.8-10.8) Red Blood Count 4.30 M/UL (4.20-5.40) Hemoglobin 12.1 G/DL (12.0-16.0) Hematocrit 37.0 % (37.0-47.0) Mean Corpuscular Volume 86 FL (80-99) Mean Corpuscular Hemoglobin 28.3 PG (27.0-31.0) Mean Corpuscular Hemoglobin Concent 32.8 G/DL (32.0-36.0) Red Cell Distribution Width 12.5 % (11.6-14.8) Platelet Count 379 K/UL (150-450) Mean Platelet Volume 6.8 FL (6.5-10.1) Neutrophils (%) (Auto) 68.1 % (45.0-75.0) Lymphocytes (%) (Auto) 17.5 % (20.0-45.0) L Monocytes (%) (Auto) 9.3 % (1.0-10.0) Eosinophils (%) (Auto) 4.5 % (0.0-3.0) H Basophils (%) (Auto) 0.6 % (0.0-2.0) Sodium Level 138 MMOL/L (136-145) Potassium Level 3.7 MMOL/L (3.5-5.1) Chloride Level 103 MMOL/L (98-107) Carbon Dioxide Level 29 MMOL/L (21-32) Anion Gap 6 mmol/L (5-15) Blood Urea Nitrogen 5 mg/dL (7-18) L Creatinine 1.0 MG/DL (0.55-1.30) Estimat Glomerular Filtration Rate 56.9 mL/min (>60) Glucose Level 92 MG/DL (74-106) Calcium Level 8.4 MG/DL (8.5-10.1) L Total Bilirubin 0.2 MG/DL (0.2-1.0) Aspartate Amino Transf (AST/SGOT) 30 U/L (15-37) Alanine Aminotransferase (ALT/SGPT) 19 U/L (12-78) Alkaline Phosphatase 64 U/L (46-116) Total Protein 5.4 G/DL (6.4-8.2) L Albumin 2.6 G/DL (3.4-5.0) L Globulin 2.8 g/dL Albumin/Globulin Ratio 0.9 (1.0-2.7) L Plan Problems: (1) Ascites Assessment & Plan: Uterus/cervix: The uterus measures 6.3 x 4.7 x 4.3 cm is. Endometrial stripe measures 0.3 cm. No myometrial mass. Right ovary: Neither ovary is discretely visualized. No torsion. Left ovary: See above. Free fluid: Moderate to large quantity of ascites. Bladder: Unremarkable as visualized. Wall is normal thickness for degree of distention. Other findings: There is a 10.8 cm solid and cystic ill-defined mass within the pelvis worrisome for neoplasm. IMPRESSION: 1. Heterogeneous solid cystic mass lesion centrally within the pelvis worrisome for neoplasm. 2. Moderate to large quantity of ascites. 3. Neither ovary is discretely visualized. 4. Magnetic resonance imaging of the pelvis with gadolinium administration is highly advised to follow. 5. Findings are highly worrisome for neoplasm, possibly of ovarian etiology. (2) Abdominal pain Assessment & Plan: unlikely appendicitis, or bowel related likely related to ovarian masses which are likely neoplasm no acute surgical intervention pending tumor markers okay for diet will follow with exam and recs The appendix is not clearly visualized, but there are no findings to suggest acute appendicitis. No evidence of diverticulosis or diverticulitis. No small bowel distention. Ingested contrast has traversed the entirety of the small bowel, extends far distally as the transverse colon. There is a moderate amount of ascites fluid present. This demonstrates mildly increased attenuation. No free intraperitoneal gas. Distal esophagus, stomach, duodenum are unremarkable. The posterior aspect of the uterus is surrounded by abnormal soft tissue is seen surrounding the posterior circumference of the uterus. This presumably represents confluent adnexal masses. Overall dimensions of this area are approximately 6.4 cm transverse by 4.7 cm AP. There is extensive omental infiltration by tumor. Mesenteric implants are also demonstrated scattered along the mesenteric surface. The liver demonstrates equivocal slight surface nodularity. No focal abnormality. The gallbladder is mildly distended, otherwise unremarkable. The bile ducts are nondilated. The pancreas, spleen, adrenals, kidneys are unremarkable. No retroperitoneal or mesenteric mass or adenopathy. There is considerable infiltration of the right sided abdominal wall fat. There are bilateral pleural effusions, massive on the right, moderate to large on the left. There are compressive atelectatic changes at both lung bases. The bones are unremarkable. 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 Correlate with clinical history Infiltration of the right-sided abdominal wall fat. This could represent edema of hemodynamic origin, versus cellulitis. Correlate with clinical findings. Massive right, moderate to large left pleural effusions. Associated compressive atelectatic changes Farhat Del Valle Feb 27, 2020 16:54
--- NOTE | 2020-02-27 16:57 | Diagnostic Imaging Report ---
Indication: Evidence of neoplastic omental implants on prior CT scan Technique: Prior imaging studies reviewed. Informed consent obtained prior to commencement of the procedure. Procedural timeout performed. Localizing CT slices obtained. Intended puncture site sterilely prepped and draped. Local anesthesia with 1% lidocaine. Under CT guidance, a 17-gauge guide needle was directed to the periphery of omental tumor conglomerate seen in the left side of the abdomen. CT slices confirmed satisfactory needle position. Total of 4 18-gauge core specimens then obtained using coaxially inserted 18-gauge automated biopsy gun. Specimens were placed in formalin, submitted to pathology. Follow-up CT images obtained, demonstrating no evidence of complication. The patient tolerated the procedure well, without immediate complication. Total dose length product 260 mGycm. CTDIvol(s) 4 x 5 mGy Comparison: 02/25/[address] scan Findings: Intraprocedural images document satisfactory needle position at the periphery of an omental mass in the left side of the abdomen. Completion images demonstrate no evidence of hemorrhage Impression: CT-guided biopsy of omental mass, as described. Final pathology pending
--- NOTE | 2020-02-27 19:29 | NUR ---
NURSE HAND-OFF: Important Events on Shift:[S/P thoracentesis and parecentesis, safety and comfort] Patient Status: [stable] Diet: [regular] Pending Orders: [] Pending Results/Labs:[] Pending MD notification:[] Latest Vital Signs: Temperature 97.3 , Pulse 95 , B/P 112 /73 , Respiratory Rate 17 , O2 SAT 99 , Room Air, O2 Flow Rate . Vital Sign Comment: [] Latest [place] Fall Score: 20 Fall Risk: Low Risk Safety Measures: Call light Within Reach, Bed Alarm Zone 1, Side Rails Side Rails x2, Bed position Low and Locked. Fall Precautions: Yellow Socks Yellow Gown Door Sign Patient Fall Education Report given to [JUSTYNA Benavides].
--- NOTE | 2020-02-27 19:30 | NUR ---
NURSE NOTES: Patient is awake and alert x 4. Patient is on room, no pain other than the areas where thoracentesis and paracentesis was [performed. Patient continues to have a sense of bloating and slight abdominal distention. Patient has no complaints of nausea nor abdominal pain at this time. Pt has a left hand 22 gauge IV, patent, asymptomatic. Thoracentesis 1600 ml out, paracentesis 1.7 L out. Slight tenderness at the side, no bleeding. Bed is locked and in lowest position. Call light in reach. Will continue to follow plan of care.
[2020-02-28] VITALS: BP 96/67
[2020-02-28 04:18] VITALS: BP 107/66
--- NOTE | 2020-02-28 07:38 | NUR ---
NURSE HAND-OFF: Important Events on Shift: Patient Status: Abd girth measured and weight taken via standing scale Diet: Pending Orders: biopsy taken yesterday 02/26 and pending results Latest [place] Fall Score: 20 Fall Risk: Low Risk Safety Measures: Call light Within Reach, Bed Alarm Zone 1, Side Rails Side Rails x2, Bed position Low and Locked. Fall Precautions: Yellow Socks Yellow Gown Door Sign Patient Fall Education Report given to JUSTYNA Bernstein
--- NOTE | 2020-02-28 07:39 | NUR ---
NURSE NOTES: Received report from JUSTYNA Ortega. Patient seen in bed eating breakfast, AAOx4. Patient on room air no SOB, bed in lowest position with breaks engaged and alarm on, on room air, denies any pain or discomfort at this time, on room air, IV line intact and patent, will continue to monitor and proceed with plan of care, call light within reach at all times.
[2020-02-28 08:00] VITALS: BP 100/64
[2020-02-28] MEDS: Miralax 17gm pkt ORAL SCH (08:20)
[2020-02-28] MEDS: Spironolactone 50mg tab ORAL SCH (08:20)
--- NOTE | 2020-02-28 08:21 | General Progress Note ---
Subjective ROS Limited/Unobtainable: Yes Allergies: Coded Allergies: No Known Allergies (Unverified , 02/24/20) Objective Last 24 Hour Vital Signs Date Time Temp Pulse Resp B/P (MAP) Pulse Ox O2 Delivery O2 Flow Rate FiO2 02/28/20 04:18 97.5 81 18 107/66 (80) 98 02/28/20 00:00 97.7 86 18 96/67 (77) 97 02/27/20 21:00 Room Air 02/27/20 20:00 98.8 98 20 106/68 (81) 96 02/27/20 16:00 97.3 95 17 112/73 (86) 99 02/27/20 15:51 97.3 92 20 114/75 (88) 98 92 02/27/20 15:46 97.0 90 20 110/79 (89) 99 90 02/27/20 15:41 97.2 89 22 117/74 (88) 99 89 02/27/20 15:30 97.6 84 19 103/70 (81) 98 84 02/27/20 15:25 84 19 02/27/20 12:00 97.9 95 17 108/71 (83) 95 02/27/20 09:00 Room Air Intake and Output 02/27/20 02/28/20 19:00 07:00 Intake Total 380 ml Balance 380 ml Intake Oral 380 ml # Voids 5 4 Height (Feet): 5 Height (Inches): 5.00 Weight (Pounds): 130 General Appearance: alert EENT: normal ENT inspection Neck: supple Cardiovascular: normal rate Respiratory/Chest: decreased breath sounds Abdomen: hypoactive bowel sounds, distended Extremities: non-tender Assessment/Plan Assessment/Plan: metastatic ovarian cancer malignant ascites ca 125 24 K recommend CADDY oncology consult fu biopsy on diuretics s/p 3.5 lit paracentesis oncology in [facility] Sebastian Bentley MD Feb 28, 2020 08:21
--- NOTE | 2020-02-28 09:06 | Surgery Progress Note ---
Surgery Progress Note Subjective Symptoms: improved Additional Comments pending cytology/path comfortable labs noted exam stable Objective Last 24 Hour Vital Signs Date Time Temp Pulse Resp B/P (MAP) Pulse Ox O2 Delivery O2 Flow Rate FiO2 02/28/20 08:00 97.7 88 19 100/64 (76) 98 02/28/20 04:18 97.5 81 18 107/66 (80) 98 02/28/20 00:00 97.7 86 18 96/67 (77) 97 02/27/20 21:00 Room Air 02/27/20 20:00 98.8 98 20 106/68 (81) 96 02/27/20 16:00 97.3 95 17 112/73 (86) 99 02/27/20 15:51 97.3 92 20 114/75 (88) 98 92 02/27/20 15:46 97.0 90 20 110/79 (89) 99 90 02/27/20 15:41 97.2 89 22 117/74 (88) 99 89 02/27/20 15:30 97.6 84 19 103/70 (81) 98 84 02/27/20 15:25 84 19 02/27/20 12:00 97.9 95 17 108/71 (83) 95 I&O Intake and Output 02/27/20 02/28/20 19:00 07:00 Intake Total 380 ml Balance 380 ml Intake Oral 380 ml # Voids 5 4 Cardiovascular: RSR Respiratory: clear, decreased breath sounds Abdomen: soft, non-tender, present bowel sounds Extremities: no edema, no tenderness, no cyanosis Plan Problems: (1) Ascites Assessment & Plan: Uterus/cervix: The uterus measures 6.3 x 4.7 x 4.3 cm is. Endometrial stripe measures 0.3 cm. No myometrial mass. Right ovary: Neither ovary is discretely visualized. No torsion. Left ovary: See above. Free fluid: Moderate to large quantity of ascites. Bladder: Unremarkable as visualized. Wall is normal thickness for degree of distention. Other findings: There is a 10.8 cm solid and cystic ill-defined mass within the pelvis worrisome for neoplasm. IMPRESSION: 1. Heterogeneous solid cystic mass lesion centrally within the pelvis worrisome for neoplasm. 2. Moderate to large quantity of ascites. 3. Neither ovary is discretely visualized. 4. Magnetic resonance imaging of the pelvis with gadolinium administration is highly advised to follow. 5. Findings are highly worrisome for neoplasm, possibly of ovarian etiology. (2) Abdominal pain Assessment & Plan: unlikely appendicitis, or bowel related likely related to ovarian masses which are likely neoplasm no acute surgical intervention pending tumor markers okay for diet will follow with exam and recs The appendix is not clearly visualized, but there are no findings to suggest acute appendicitis. No evidence of diverticulosis or diverticulitis. No small bowel distention. Ingested contrast has traversed the entirety of the small bowel, extends far distally as the transverse colon. There is a moderate amount of ascites fluid present. This demonstrates mildly increased attenuation. No free intraperitoneal gas. Distal esophagus, stomach, duodenum are unremarkable. The posterior aspect of the uterus is surrounded by abnormal soft tissue is seen surrounding the posterior circumference of the uterus. This presumably represents confluent adnexal masses. Overall dimensions of this area are approximately 6.4 cm transverse by 4.7 cm AP. There is extensive omental infiltration by tumor. Mesenteric implants are also demonstrated scattered along the mesenteric surface. The liver demonstrates equivocal slight surface nodularity. No focal abnormality. The gallbladder is mildly distended, otherwise unremarkable. The bile ducts are nondilated. The pancreas, spleen, adrenals, kidneys are unremarkable. No retroperitoneal or mesenteric mass or adenopathy. There is considerable infiltration of the right sided abdominal wall fat. There are bilateral pleural effusions, massive on the right, moderate to large on the left. There are compressive atelectatic changes at both lung bases. The bones are unremarkable. 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 Correlate with clinical history Infiltration of the right-sided abdominal wall fat. This could represent edema of hemodynamic origin, versus cellulitis. Correlate with clinical findings. Massive right, moderate to large left pleural effusions. Associated compressive atelectatic changes Farhat Del Valle Feb 28, 2020 09:06
--- NOTE | 2020-02-28 11:00 | Pulmonology Progress Note ---
Subjective ROS Limited/Unobtainable: Yes Interval Events: s/p thoracentsis; feeling better Constitutional: Reports: no symptoms HEENT: Repors: no symptoms Respiratory: Reports: no symptoms Cardiovascular: Reports: no symptoms Gastrointestinal/Abdominal: Reports: no symptoms Genitourinary: Reports: no symptoms Neurologic: Reports: no symptoms Allergies: Coded Allergies: No Known Allergies (Unverified , 02/24/20) Objective Last 24 Hour Vital Signs Date Time Temp Pulse Resp B/P (MAP) Pulse Ox O2 Delivery O2 Flow Rate FiO2 02/28/20 09:00 Room Air 02/28/20 08:00 97.7 88 19 100/64 (76) 98 02/28/20 04:18 97.5 81 18 107/66 (80) 98 02/28/20 00:00 97.7 86 18 96/67 (77) 97 02/27/20 21:00 Room Air 02/27/20 20:00 98.8 98 20 106/68 (81) 96 02/27/20 16:00 97.3 95 17 112/73 (86) 99 02/27/20 15:51 97.3 92 20 114/75 (88) 98 92 02/27/20 15:46 97.0 90 20 110/79 (89) 99 90 02/27/20 15:41 97.2 89 22 117/74 (88) 99 89 02/27/20 15:30 97.6 84 19 103/70 (81) 98 84 02/27/20 15:25 84 19 02/27/20 12:00 97.9 95 17 108/71 (83) 95 Intake and Output 02/27/20 02/28/20 19:00 07:00 Intake Total 380 ml Balance 380 ml Intake Oral 380 ml # Voids 5 4 General Appearance: no acute distress HEENT: normocephalic, atraumatic Respiratory: chest wall non-tender, lungs clear Cardiovascular: normal peripheral pulses, normal rate Abdomen: normal bowel sounds Current Medications Medications (Trade) Dose Ordered Sig/Silverio Route PRN Reason Start Time Stop Time Status Last Admin Dose Admin Acetaminophen (Tylenol) 650 mg Q6H PRN ORAL Mild Pain (Pain Scale 1-3) 02/24/20 19:45 03/25/20 19:44 Acetaminophen/ Hydrocodone Bitart ([place] 5/325) 1 tab Q6H PRN ORAL Moderate Pain (Pain Scale 4-6) 02/24/20 19:45 03/02/20 19:44 02/25/20 20:13 Furosemide (Lasix) 20 mg DAILY IV 02/27/20 09:00 03/28/20 08:59 02/28/20 08:20 Ondansetron HCl (Zofran) 4 mg Q6H PRN IVP Nausea & Vomiting 02/24/20 19:45 03/25/20 19:44 Polyethylene Glycol (Miralax) 17 gm DAILY ORAL 02/26/20 11:15 03/27/20 11:14 02/28/20 08:20 Spironolactone (Aldactone) 50 mg DAILY ORAL 02/27/20 09:00 03/28/20 08:59 02/28/20 08:20 Assessment/Plan Assessment/Plan Assessment/Plan 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
[2020-02-28 12:00] VITALS: BP 106/65
[2020-02-28 16:00] VITALS: BP 100/64
--- NOTE | 2020-02-28 19:11 | NUR ---
HAND-OFF: Report given to JUSTYNA Gee.
--- NOTE | 2020-02-28 19:22 | NUR ---
NURSE NOTES: Received report from JUSTYNA Bernstein. AAO x 4, on room air, ambulatory. Pt has tolerable pain on ABD. IV site intact and patent. Denies any discomfort. Bed locked, lowest position, side rails up, alarm on, call light within reach. Will continue to monitor.
--- NOTE | 2020-02-28 19:27 | Internal Med Progress Note ---
Subjective Physician Name Kimberly Laurent Attending Physician Kimberly Laurent M.D. Current Medications Medications (Trade) Dose Ordered Sig/Silverio Route PRN Reason Start Time Stop Time Status Last Admin Dose Admin Acetaminophen (Tylenol) 650 mg Q6H PRN ORAL Mild Pain (Pain Scale 1-3) 02/24/20 19:45 03/25/20 19:44 Acetaminophen/ Hydrocodone Bitart ([place] 5/325) 1 tab Q6H PRN ORAL Moderate Pain (Pain Scale 4-6) 02/24/20 19:45 03/02/20 19:44 02/25/20 20:13 Furosemide (Lasix) 20 mg DAILY IV 02/27/20 09:00 03/28/20 08:59 02/28/20 08:20 Ondansetron HCl (Zofran) 4 mg Q6H PRN IVP Nausea & Vomiting 02/24/20 19:45 03/25/20 19:44 Polyethylene Glycol (Miralax) 17 gm DAILY ORAL 02/26/20 11:15 03/27/20 11:14 02/28/20 08:20 Spironolactone (Aldactone) 50 mg DAILY ORAL 02/27/20 09:00 03/28/20 08:59 02/28/20 08:20 Allergies: Coded Allergies: No Known Allergies (Unverified , 02/24/20) ROS Limited/Unobtainable: No Constitutional: Reports: weakness Subjective s/p paracentesis with 3.5L removed follow path on aldactone and lasix CT abd obained concerning for metastatic ovarian malignancy Objective Last Vital Signs Date Time Temp Pulse Resp B/P (MAP) Pulse Ox O2 Delivery O2 Flow Rate FiO2 02/28/20 16:00 98.3 81 18 100/64 (76) 97 02/28/20 09:00 Room Air 02/24/20 13:15 99 Intake and Output 02/27/20 02/28/20 19:00 07:00 Intake Total 380 ml Balance 380 ml Intake Oral 380 ml # Voids 5 4 Assessment/Plan Assessment/Plan #Abd pain #concerns for metastatic ovarian malignancy #malignant ascites #Bloating #Hpylori? 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 Correlate with clinical history Infiltration of the right-sided abdominal wall fat. This could represent edema of hemodynamic origin, versus cellulitis. Correlate with clinical findings. Massive right, moderate to large left pleural effusions. Associated compressive atelectatic changes Kimberly Laurent M.D. Feb 28, 2020 19:27
[2020-02-28 20:00] VITALS: BP 94/65
[2020-02-29] VITALS: BP 93/69
[2020-02-29 04:00] VITALS: BP 103/70
--- NOTE | 2020-02-29 06:26 | NUR ---
NURSE HAND-OFF: Important Events on Shift:none Patient Status: stable Diet: reg. Pending Orders: N Pending Results/Labs:AM labs Pending MD notification:N Latest Vital Signs: Temperature 97.8 , Pulse 90 , B/P 103 /70 , Respiratory Rate 18 , O2 SAT 96 , Room Air, O2 Flow Rate . Vital Sign Comment: [] Latest [place] Fall Score: 20 Fall Risk: Low Risk Safety Measures: Call light Within Reach, Bed Alarm Zone 1, Side Rails Side Rails x2, Bed position Low and Locked. Fall Precautions: Yellow Socks Yellow Gown Door Sign Patient Fall Education Addendum: 02/29/20 at 0704 by DORINDA MÉNDEZ RN RN HAND-OFF: Report given to
[2020-02-29 06:48] LABS: BASOPHILS % (AUTO) 0.6 % (0.0-2.0); EOSINOPHILS % (AUTO) 6.8 % (0.0-3.0); HEMATOCRIT 43.3 % (37.0-47.0); HEMOGLOBIN 13.7 G/DL (12.0-16.0); LYMPHOCYTES % (AUTO) 21.4 % (20.0-45.0); MEAN CORPUSCULAR VOLUME 89 FL (80-99); MONOCYTES % (AUTO) 8.8 % (1.0-10.0); NEUTROPHILS % (AUTO) 62.4 % (45.0-75.0); PLATELET COUNT 476 K/UL (150-450); RED BLOOD COUNT 4.87 M/UL (4.20-5.40); RED CELL DISTRIBUTION WIDTH 12.2 % (11.6-14.8); WHITE BLOOD COUNT 6.2 K/UL (4.8-10.8)
[2020-02-29 07:13] LABS: CALCIUM 8.6 MG/DL (8.5-10.1); POTASSIUM 4.5 MMOL/L (3.5-5.1)
--- NOTE | 2020-02-29 07:25 | NUR ---
NURSE NOTES: RECEIVED PATIENT A/A/OX4 IN BED. KEPT CALM AND COMFORTABLE. HAD BREAKFAST AND NO C/O N/V NOTED. PATIENT IS TOLERATING FOOD INTAKE WELL. S/P PARACENTESIS AND THORACENTESIS SITE IS CLEAN AND DRY. PIV PATENT AND INTACT, HEPLOCK. KEPT BED IN THE LOWEST POSITION. SIDERAILS ARE UPX2, CALL LIGHT IS WITHIN REACH. KEPT BED IN LOCK AND BRAKES ENGAGED. NO ACUTE RESP DISTRESS NOTED. ABLE TO VERBALIZE NEEDS. WILL CONT TO MONITOR,
--- NOTE | 2020-02-29 07:39 | NUR ---
HAND-OFF: Report given to DAYANA Martinez.
[2020-02-29 07:46] LABS: PHOSPHORUS 3.6 MG/DL (2.5-4.9)
--- NOTE | 2020-02-29 07:50 | General Progress Note ---
Subjective ROS Limited/Unobtainable: Yes Allergies: Coded Allergies: No Known Allergies (Unverified , 02/24/20) Objective Last 24 Hour Vital Signs Date Time Temp Pulse Resp B/P (MAP) Pulse Ox O2 Delivery O2 Flow Rate FiO2 02/29/20 04:00 97.8 90 18 103/70 (81) 96 02/29/20 00:00 97.9 76 20 93/69 (77) 97 02/28/20 21:00 Room Air 02/28/20 20:00 98.4 82 18 94/65 (75) 97 02/28/20 16:00 98.3 81 18 100/64 (76) 97 02/28/20 12:00 98.2 76 18 106/65 (79) 98 02/28/20 09:00 Room Air 02/28/20 08:00 97.7 88 19 100/64 (76) 98 Intake and Output 02/28/20 02/29/20 19:00 07:00 Intake Total 840 ml Balance 840 ml Intake Oral 840 ml # Voids 5 1 Laboratory Tests 02/29/20 05:50: White Blood Count 6.2, Red Blood Count 4.87, Hemoglobin 13.7, Hematocrit 43.3, Mean Corpuscular Volume 89, Mean Corpuscular Hemoglobin 28.2, Mean Corpuscular Hemoglobin Concent 31.6L, Red Cell Distribution Width 12.2, Platelet Count 476H, Mean Platelet Volume 6.5, Neutrophils (%) (Auto) 62.4, Lymphocytes (%) (Auto) 21.4, Monocytes (%) (Auto) 8.8, Eosinophils (%) (Auto) 6.8H, Basophils (%) (Auto) 0.6, Sodium Level 141, Potassium Level 4.5, Chloride Level 104, Carbon Dioxide Level 28, Anion Gap 9, Blood Urea Nitrogen 13, Creatinine 1.0, Estimat Glomerular Filtration Rate 56.9, Glucose Level 101, Calcium Level 8.6, Phosphorus Level 3.6, Magnesium Level 2.4 Height (Feet): 5 Height (Inches): 5.00 Weight (Pounds): 130 General Appearance: alert EENT: normal ENT inspection Neck: supple Cardiovascular: normal rate Respiratory/Chest: decreased breath sounds Abdomen: hypoactive bowel sounds Extremities: non-tender Assessment/Plan Assessment/Plan: metastatic ovarian cancer malignant ascites ca 125 24 K recommend [employer] oncology consult fu biopsy on diuretics s/p 3.5 lit paracentesis oncology in put appreciated change diet to 2 gm diet Sebastian Bentley MD Feb 29, 2020 07:50
[2020-02-29 08:07] VITALS: BP 97/70
--- NOTE | 2020-02-29 08:15 | Pulmonology Progress Note ---
Subjective ROS Limited/Unobtainable: Yes Interval Events: s/p thoracentsis; feeling better Constitutional: Reports: no symptoms HEENT: Repors: no symptoms Respiratory: Reports: no symptoms Cardiovascular: Reports: no symptoms Gastrointestinal/Abdominal: Reports: no symptoms Genitourinary: Reports: no symptoms Neurologic: Reports: no symptoms Allergies: Coded Allergies: No Known Allergies (Unverified , 02/24/20) Objective Last 24 Hour Vital Signs Date Time Temp Pulse Resp B/P (MAP) Pulse Ox O2 Delivery O2 Flow Rate FiO2 02/29/20 08:07 98.1 86 97/70 (79) 02/29/20 04:00 97.8 90 18 103/70 (81) 96 02/29/20 00:00 97.9 76 20 93/69 (77) 97 02/28/20 21:00 Room Air 02/28/20 20:00 98.4 82 18 94/65 (75) 97 02/28/20 16:00 98.3 81 18 100/64 (76) 97 02/28/20 12:00 98.2 76 18 106/65 (79) 98 02/28/20 09:00 Room Air l Intake and Output 02/28/20 02/29/20 19:00 07:00 Intake Total 840 ml Balance 840 ml Intake Oral 840 ml # Voids 5 1 General Appearance: no acute distress HEENT: normocephalic, atraumatic Respiratory: chest wall non-tender, lungs clear Cardiovascular: normal peripheral pulses, normal rate Abdomen: normal bowel sounds Laboratory Tests 02/29/20 05:50: White Blood Count 6.2, Red Blood Count 4.87, Hemoglobin 13.7, Hematocrit 43.3, Mean Corpuscular Volume 89, Mean Corpuscular Hemoglobin 28.2, Mean Corpuscular Hemoglobin Concent 31.6L, Red Cell Distribution Width 12.2, Platelet Count 476H, Mean Platelet Volume 6.5, Neutrophils (%) (Auto) 62.4, Lymphocytes (%) (Auto) 21.4, Monocytes (%) (Auto) 8.8, Eosinophils (%) (Auto) 6.8H, Basophils (%) (Auto) 0.6, Sodium Level 141, Potassium Level 4.5, Chloride Level 104, Carbon Dioxide Level 28, Anion Gap 9, Blood Urea Nitrogen 13, Creatinine 1.0, Estimat Glomerular Filtration Rate 56.9, Glucose Level 101, Calcium Level 8.6, Phosphorus Level 3.6, Magnesium Level 2.4 Current Medications Medications (Trade) Dose Ordered Sig/Silverio Route PRN Reason Start Time Stop Time Status Last Admin Dose Admin Acetaminophen (Tylenol) 650 mg Q6H PRN ORAL Mild Pain (Pain Scale 1-3) 02/24/20 19:45 03/25/20 19:44 Acetaminophen/ Hydrocodone Bitart ([place] 5/325) 1 tab Q6H PRN ORAL Moderate Pain (Pain Scale 4-6) 02/24/20 19:45 03/02/20 19:44 02/25/20 20:13 Furosemide (Lasix) 20 mg DAILY IV 02/27/20 09:00 03/28/20 08:59 02/28/20 08:20 Ondansetron HCl (Zofran) 4 mg Q6H PRN IVP Nausea & Vomiting 02/24/20 19:45 03/25/20 19:44 Polyethylene Glycol (Miralax) 17 gm DAILY ORAL 02/26/20 11:15 03/27/20 11:14 02/28/20 08:20 Spironolactone (Aldactone) 50 mg DAILY ORAL 02/27/20 09:00 03/28/20 08:59 02/28/20 08:20 Assessment/Plan Assessment/Plan Assessment/Plan 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
[2020-02-29] MEDS: Spironolactone 50mg tab ORAL SCH (08:54)
[2020-02-29] MEDS: Miralax 17gm pkt ORAL SCH (08:55)
--- NOTE | 2020-02-29 10:24 | Surgery Progress Note ---
Surgery Progress Note Subjective Additional Comments afebrile, HD stable abd pain improved no n/v states feels a bit better no drainage from abd wall para site now. small area of induation non infected likely residual fluid in subcutaneous or edema Objective Last 24 Hour Vital Signs Date Time Temp Pulse Resp B/P (MAP) Pulse Ox O2 Delivery O2 Flow Rate FiO2 02/29/20 09:00 Room Air 02/29/20 08:07 98.1 86 97/70 (79) 02/29/20 04:00 97.8 90 18 103/70 (81) 96 02/29/20 00:00 97.9 76 20 93/69 (77) 97 02/28/20 21:00 Room Air 02/28/20 20:00 98.4 82 18 94/65 (75) 97 02/28/20 16:00 98.3 81 18 100/64 (76) 97 02/28/20 12:00 98.2 76 18 106/65 (79) 98 I&O Intake and Output 02/28/20 02/29/20 19:00 07:00 Intake Total 840 ml Balance 840 ml Intake Oral 840 ml # Voids 5 1 Dressing: dry Wound: clean Cardiovascular: RSR Respiratory: clear Abdomen: soft, flat, non-tender, present bowel sounds Extremities: no edema, no tenderness, no cyanosis Laboratory Tests Test 02/29/20 05:50 White Blood Count 6.2 K/UL (4.8-10.8) Red Blood Count 4.87 M/UL (4.20-5.40) Hemoglobin 13.7 G/DL (12.0-16.0) Hematocrit 43.3 % (37.0-47.0) Mean Corpuscular Volume 89 FL (80-99) Mean Corpuscular Hemoglobin 28.2 PG (27.0-31.0) Mean Corpuscular Hemoglobin Concent 31.6 G/DL (32.0-36.0) L Red Cell Distribution Width 12.2 % (11.6-14.8) Platelet Count 476 K/UL (150-450) H Mean Platelet Volume 6.5 FL (6.5-10.1) Neutrophils (%) (Auto) 62.4 % (45.0-75.0) Lymphocytes (%) (Auto) 21.4 % (20.0-45.0) Monocytes (%) (Auto) 8.8 % (1.0-10.0) Eosinophils (%) (Auto) 6.8 % (0.0-3.0) H Basophils (%) (Auto) 0.6 % (0.0-2.0) Sodium Level 141 MMOL/L (136-145) Potassium Level 4.5 MMOL/L (3.5-5.1) Chloride Level 104 MMOL/L (98-107) Carbon Dioxide Level 28 MMOL/L (21-32) Anion Gap 9 mmol/L (5-15) Blood Urea Nitrogen 13 mg/dL (7-18) Creatinine 1.0 MG/DL (0.55-1.30) Estimat Glomerular Filtration Rate 56.9 mL/min (>60) Glucose Level 101 MG/DL (74-106) Calcium Level 8.6 MG/DL (8.5-10.1) Phosphorus Level 3.6 MG/DL (2.5-4.9) Magnesium Level 2.4 MG/DL (1.8-2.4) Plan Problems: (1) Ascites Assessment & Plan: Uterus/cervix: The uterus measures 6.3 x 4.7 x 4.3 cm is. Endometrial stripe measures 0.3 cm. No myometrial mass. Right ovary: Neither ovary is discretely visualized. No torsion. Left ovary: See above. Free fluid: Moderate to large quantity of ascites. Bladder: Unremarkable as visualized. Wall is normal thickness for degree of distention. Other findings: There is a 10.8 cm solid and cystic ill-defined mass within the pelvis worrisome for neoplasm. IMPRESSION: 1. Heterogeneous solid cystic mass lesion centrally within the pelvis worrisome for neoplasm. 2. Moderate to large quantity of ascites. 3. Neither ovary is discretely visualized. 4. Magnetic resonance imaging of the pelvis with gadolinium administration is highly advised to follow. 5. Findings are highly worrisome for neoplasm, possibly of ovarian etiology. (2) Abdominal pain Assessment & Plan: unlikely appendicitis, or bowel related likely related to ovarian masses which are likely neoplasm no acute surgical intervention pending tumor markers okay for diet will follow with exam and recs abd pain improved no n/v states feels a bit better no drainage from abd wall para site now. small area of induation non infected likely residual fluid in subcutaneous or edema diet as tolerated The appendix is not clearly visualized, but there are no findings to suggest acute appendicitis. No evidence of diverticulosis or diverticulitis. No small bowel distention. Ingested contrast has traversed the entirety of the small bowel, extends far distally as the transverse colon. There is a moderate amount of ascites fluid present. This demonstrates mildly increased attenuation. No free intraperitoneal gas. Distal esophagus, stomach, duodenum are unremarkable. The posterior aspect of the uterus is surrounded by abnormal soft tissue is seen surrounding the posterior circumference of the uterus. This presumably represents confluent adnexal masses. Overall dimensions of this area are approximately 6.4 cm transverse by 4.7 cm AP. There is extensive omental infiltration by tumor. Mesenteric implants are also demonstrated scattered along the mesenteric surface. The liver demonstrates equivocal slight surface nodularity. No focal abn ormality. The gallbladder is mildly distended, otherwise unremarkable. The bile ducts are nondilated. The pancreas, spleen, adrenals, kidneys are unremarkable. No retroperitoneal or mesenteric mass or adenopathy. There is considerable infiltration of the right sided abdominal wall fat. There are bilateral pleural effusions, massive on the right, moderate to large on the left. There are compressive atelectatic changes at both lung bases. The bones are unremarkable. 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 Correlate with clinical history Infiltration of the right-sided abdominal wall fat. This could represent edema of hemodynamic origin, versus cellulitis. Correlate with clinical findings. Massive right, moderate to large left pleural effusions. Associated compressive atelectatic changes Farhat Del Valle Feb 29, 2020 10:24
--- NOTE | 2020-02-29 10:35 | Hematology/Onc Progress Note ---
Assessment/Plan Assessment/Plan Assessment/Plan # Malignancy worisome in the ovary, can be primary ovarian or sarcoma v other process, p/w abd pain --> CT Complex bilateral adnexal region confluent mass, as described, presumably neoplastic, Massive right, moderate to large left pleural effusions. 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 --> abx as needed per gi # Nausea/vomting --> on antiemetics # Dvt ppx scds Appreciate consultation and martha RN Subjective HEENT: Denies: no symptoms, eye pain, blurred vision, tearing, double vision, ear pain, ear discharge, nose pain, nose congestion, throat pain, throat swelling, mouth pain, mouth swelling, other Cardiovascular: Denies: no symptoms, chest pain, edema, irregular heart rate, lightheadedness, palpitations, syncope, other Respiratory: Denies: no symptoms, cough, shortness of breath, SOB with excertion, SOB at rest, sputum, wheezing, other Gastrointestinal/Abdominal: Denies: no symptoms, abdomen distended, abdominal pain, black stools, tarry stools, blood in stool, constipated, diarrhea, difficulty swallowing, nausea, poor appetite, poor fluid intake, rectal bleeding, vomiting, other Neurologic/Psychiatric: Denies: no symptoms, anxiety, depressed, emotional problems, headache, numbness, paresthesia, pre-existing deficit, seizure, tingling, tremors, weakness, other Endocrine: Denies: no symptoms, excessive sweating, flushing, intolerance to cold, intolerance to heat, increased hunger, increased thirst, increased urine, unexplained weight gain, unexplained weight loss, other Hematologic/Lymphatic: Denies: no symptoms, anemia, easy bleeding, easy bruising, adenopathy, other Allergies: Coded Allergies: No Known Allergies (Unverified , 02/24/20) Subjective 02/26 labs reviewed, no night sweats, meds reviewed, ca 125 markedly elevated 02/28 s/p para and thora, was removed 1.7l, meds reviewed Objective Objective Current Medications Medications (Trade) Dose Ordered Sig/Silverio Route PRN Reason Start Time Stop Time Status Last Admin Dose Admin Acetaminophen (Tylenol) 650 mg Q6H PRN ORAL Mild Pain (Pain Scale 1-3) 02/24/20 19:45 03/25/20 19:44 Acetaminophen/ Hydrocodone Bitart ([place] 5/325) 1 tab Q6H PRN ORAL Moderate Pain (Pain Scale 4-6) 02/24/20 19:45 03/02/20 19:44 02/25/20 20:13 Furosemide (Lasix) 20 mg DAILY IV 02/27/20 09:00 03/28/20 08:59 02/29/20 08:28 Ondansetron HCl (Zofran) 4 mg Q6H PRN IVP Nausea & Vomiting 02/24/20 19:45 03/25/20 19:44 Polyethylene Glycol (Miralax) 17 gm DAILY ORAL 02/26/20 11:15 03/27/20 11:14 02/28/20 08:20 Spironolactone (Aldactone) 50 mg DAILY ORAL 02/27/20 09:00 03/28/20 08:59 02/28/20 08:20 Last 24 Hour Vital Signs Date Time Temp Pulse Resp B/P (MAP) Pulse Ox O2 Delivery O2 Flow Rate FiO2 02/29/20 09:00 Room Air 02/29/20 08:07 98.1 86 97/70 (79) 02/29/20 04:00 97.8 90 18 103/70 (81) 96 02/29/20 00:00 97.9 76 20 93/69 (77) 97 02/28/20 21:00 Room Air 02/28/20 20:00 98.4 82 18 94/65 (75) 97 02/28/20 16:00 98.3 81 18 100/64 (76) 97 02/28/20 12:00 98.2 76 18 106/65 (79) 98 02/28/20 09:00 Room Air 02/28/20 08:00 97.7 88 19 100/64 (76) 98 10/31/20 04:18 97.5 81 18 107/66 (80) 98 02/28/20 00:00 97.7 86 18 96/67 (77) 97 02/27/20 21:00 Room Air 02/27/20 20:00 98.8 98 20 106/68 (81) 96 02/27/20 16:00 97.3 95 17 112/73 (86) 99 02/27/20 15:51 97.3 92 20 114/75 (88) 98 92 02/27/20 15:46 97.0 90 20 110/79 (89) 99 90 02/27/20 15:41 97.2 89 22 117/74 (88) 99 89 02/27/20 15:30 97.6 84 19 103/70 (81) 98 84 02/27/20 15:25 84 19 02/27/20 12:00 97.9 95 17 108/71 (83) 95 Intake and Output 02/28/20 02/29/20 19:00 07:00 Intake Total 840 ml Balance 840 ml Intake Oral 840 ml # Voids 5 1 Labs Test 02/27/20 05:20 02/29/20 05:50 White Blood Count 5.9 K/UL (4.8-10.8) 6.2 K/UL (4.8-10.8) Red Blood Count 4.30 M/UL (4.20-5.40) 4.87 M/UL (4.20-5.40) Hemoglobin 12.1 G/DL (12.0-16.0) 13.7 G/DL (12.0-16.0) Hematocrit 37.0 % (37.0-47.0) 43.3 % (37.0-47.0) Mean Corpuscular Volume 86 FL (80-99) 89 FL (80-99) Mean Corpuscular Hemoglobin 28.3 PG (27.0-31.0) 28.2 PG (27.0-31.0) Mean Corpuscular Hemoglobin Concent 32.8 G/DL (32.0-36.0) 31.6 G/DL (32.0-36.0) Red Cell Distribution Width 12.5 % (11.6-14.8) 12.2 % (11.6-14.8) Platelet Count 379 K/UL (150-450) 476 K/UL (150-450) Mean Platelet Volume 6.8 FL (6.5-10.1) 6.5 FL (6.5-10.1) Neutrophils (%) (Auto) 68.1 % (45.0-75.0) 62.4 % (45.0-75.0) Lymphocytes (%) (Auto) 17.5 % (20.0-45.0) 21.4 % (20.0-45.0) Monocytes (%) (Auto) 9.3 % (1.0-10.0) 8.8 % (1.0-10.0) Eosinophils (%) (Auto) 4.5 % (0.0-3.0) 6.8 % (0.0-3.0) Basophils (%) (Auto) 0.6 % (0.0-2.0) 0.6 % (0.0-2.0) Sodium Level 138 MMOL/L (136-145) 141 MMOL/L (136-145) Potassium Level 3.7 MMOL/L (3.5-5.1) 4.5 MMOL/L (3.5-5.1) Chloride Level 103 MMOL/L (98-107) 104 MMOL/L (98-107) Carbon Dioxide Level 29 MMOL/L (21-32) 28 MMOL/L (21-32) Anion Gap 6 mmol/L (5-15) 9 mmol/L (5-15) Blood Urea Nitrogen 5 mg/dL (7-18) 13 mg/dL (7-18) Creatinine 1.0 MG/DL (0.55-1.30) 1.0 MG/DL (0.55-1.30) Estimat Glomerular Filtration Rate 56.9 mL/min (>60) 56.9 mL/min (>60) Glucose Level 92 MG/DL (74-106) 101 MG/DL (74-106) Calcium Level 8.4 MG/DL (8.5-10.1) 8.6 MG/DL (8.5-10.1) Total Bilirubin 0.2 MG/DL (0.2-1.0) Aspartate Amino Transf (AST/SGOT) 30 U/L (15-37) Alanine Aminotransferase (ALT/SGPT) 19 U/L (12-78) Alkaline Phosphatase 64 U/L (46-116) Total Protein 5.4 G/DL (6.4-8.2) Albumin 2.6 G/DL (3.4-5.0) Globulin 2.8 g/dL Albumin/Globulin Ratio 0.9 (1.0-2.7) Phosphorus Level 3.6 MG/DL (2.5-4.9) Magnesium Level 2.4 MG/DL (1.8-2.4) Height (Feet): 5 Height (Inches): 5.00 Weight (Pounds): 130 Objective Physical Exam General appearance: alert, cooperative, no distress, appears stated age Head: Normocephalic, without obvious abnormality, atraumatic Eyes: conjunctivae/corneas clear. PERRL, EOM's intact. Fundi benign Throat: Lips, mucosa, and tongue normal. Teeth and gums normal Neck: supple, symmetrical, trachea midline, no adenopathy Lungs: clear to auscultation bilaterally Heart: regular rate and rhythm, S1, S2 normal, no murmur, click, rub or gallop Abdomen: soft, non-tender. Bowel sounds normal. No masses, no organomegaly Extremities: extremities normal, atraumatic, no cyanosis or edema Pulses: 2+ and symmetric Skin: Skin color, texture, turgor normal. Neurologic: Grossly normal Jeremie Chicas MD Feb 29, 2020 10:35
[2020-02-29 12:00] VITALS: BP 96/67
--- NOTE | 2020-02-29 12:55 | Internal Med Progress Note ---
Subjective Physician Name Kimberly Laurent Attending Physician Kimberly Laurent M.D. Current Medications Medications (Trade) Dose Ordered Sig/Silverio Route PRN Reason Start Time Stop Time Status Last Admin Dose Admin Acetaminophen (Tylenol) 650 mg Q6H PRN ORAL Mild Pain (Pain Scale 1-3) 02/24/20 19:45 03/25/20 19:44 Acetaminophen/ Hydrocodone Bitart ([place] 5/325) 1 tab Q6H PRN ORAL Moderate Pain (Pain Scale 4-6) 02/24/20 19:45 03/02/20 19:44 02/25/20 20:13 Furosemide (Lasix) 20 mg DAILY IV 02/27/20 09:00 03/28/20 08:59 02/29/20 08:28 Ondansetron HCl (Zofran) 4 mg Q6H PRN IVP Nausea & Vomiting 02/24/20 19:45 03/25/20 19:44 Polyethylene Glycol (Miralax) 17 gm DAILY ORAL 02/26/20 11:15 03/27/20 11:14 02/28/20 08:20 Spironolactone (Aldactone) 50 mg DAILY ORAL 02/27/20 09:00 03/28/20 08:59 02/28/20 08:20 Allergies: Coded Allergies: No Known Allergies (Unverified , 02/24/20) All Systems: reviewed and negative except above Subjective s/p paracentesis with 3.5L removed follow path on aldactone and lasix CT abd obained concerning for metastatic ovarian malignancy Objective Last Vital Signs Date Time Temp Pulse Resp B/P (MAP) Pulse Ox O2 Delivery O2 Flow Rate FiO2 02/29/20 12:00 97.6 74 18 96/67 (77) 98 02/29/20 09:00 Room Air 02/24/20 13:15 99 Laboratory Tests Test 02/29/20 05:50 White Blood Count 6.2 K/UL (4.8-10.8) Red Blood Count 4.87 M/UL (4.20-5.40) Hemoglobin 13.7 G/DL (12.0-16.0) Hematocrit 43.3 % (37.0-47.0) Mean Corpuscular Volume 89 FL (80-99) Mean Corpuscular Hemoglobin 28.2 PG (27.0-31.0) Mean Corpuscular Hemoglobin Concent 31.6 G/DL (32.0-36.0) L Red Cell Distribution Width 12.2 % (11.6-14.8) Platelet Count 476 K/UL (150-450) H Mean Platelet Volume 6.5 FL (6.5-10.1) Neutrophils (%) (Auto) 62.4 % (45.0-75.0) Lymphocytes (%) (Auto) 21.4 % (20.0-45.0) Monocytes (%) (Auto) 8.8 % (1.0-10.0) Eosinophils (%) (Auto) 6.8 % (0.0-3.0) H Basophils (%) (Auto) 0.6 % (0.0-2.0) Sodium Level 141 MMOL/L (136-145) Potassium Level 4.5 MMOL/L (3.5-5.1) Chloride Level 104 MMOL/L (98-107) Carbon Dioxide Level 28 MMOL/L (21-32) Anion Gap 9 mmol/L (5-15) Blood Urea Nitrogen 13 mg/dL (7-18) Creatinine 1.0 MG/DL (0.55-1.30) Estimat Glomerular Filtration Rate 56.9 mL/min (>60) Glucose Level 101 MG/DL (74-106) Calcium Level 8.6 MG/DL (8.5-10.1) Phosphorus Level 3.6 MG/DL (2.5-4.9) Magnesium Level 2.4 MG/DL (1.8-2.4) Intake and Output 02/28/20 02/29/20 19:00 07:00 Intake Total 840 ml Balance 840 ml Intake Oral 840 ml # Voids 5 1 Assessment/Plan Assessment/Plan #Abd pain #concerns for metastatic ovarian malignancy #malignant ascites #Bloating #Hpylori? 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 Correlate with clinical history Infiltration of the right-sided abdominal wall fat. This could represent edema of hemodynamic origin, versus cellulitis. Correlate with clinical findings. Massive right, moderate to large left pleural effusions. Associated compressive atelectatic changes Kimberly Laurent M.D. Feb 29, 2020 12:55
[2020-02-29 15:43] VITALS: BP 95/67
--- NOTE | 2020-02-29 18:59 | NUR ---
NURSE HAND-OFF: Important Events on Shift:[CLAIMED GAUZE PLACE BY MD I DID DOUBLE CHECKED AND THERE WAS NOTHING. POSS D/C IN AM PER PMD. TOLERATING FOOD INTAKE. ] Patient Status: [STABLE] Diet: [LOW NA] Pending Orders: [LABS] Pending Results/Labs:[IN AM] Pending MD notification:[] Latest Vital Signs: Temperature 98.1 , Pulse 82 , B/P 95 /67 , Respiratory Rate 17 , O2 SAT 98 , Room Air, O2 Flow Rate . Vital Sign Comment: [] Latest [place] Fall Score: 20 Fall Risk: Low Risk Safety Measures: Call light Within Reach, Bed Alarm Zone 1, Side Rails Side Rails x2, Bed position Low and Locked. Fall Precautions: Yellow Socks Yellow Gown Door Sign Patient Fall Education Report given to [DORINDA].
--- NOTE | 2020-02-29 19:03 | NUR ---
NURSE NOTES: Received report from DAYANA Martinez. AAO x 4, on room air, ambulatory. Pt has tolerable pain on ABD. S/P paracentesis and thoracentesis, site clean and dry. IV site intact and patent. Denies any pain or discomfort. Bed locked, lowest position, side rails up, alarm on, call light within reach. Will continue to monitor.
[2020-02-29 19:48] VITALS: BP 133/71
[2020-03-01] VITALS: BP 97/63
[2020-03-01 04:00] VITALS: BP 126/72
[2020-03-01 06:41] LABS: BASOPHILS % (AUTO) 0.5 % (0.0-2.0); EOSINOPHILS % (AUTO) 6.5 % (0.0-3.0); HEMATOCRIT 42.8 % (37.0-47.0); HEMOGLOBIN 13.6 G/DL (12.0-16.0); LYMPHOCYTES % (AUTO) 21.7 % (20.0-45.0); MEAN CORPUSCULAR VOLUME 89 FL (80-99); MONOCYTES % (AUTO) 8.3 % (1.0-10.0); PLATELET COUNT 493 K/UL (150-450); RED BLOOD COUNT 4.84 M/UL (4.20-5.40); RED CELL DISTRIBUTION WIDTH 12.3 % (11.6-14.8); WHITE BLOOD COUNT 6.4 K/UL (4.8-10.8)
--- NOTE | 2020-03-01 06:51 | NUR ---
NURSE HAND-OFF: Important Events on Shift:none Patient Status: stable Diet:low sodium Pending Orders: N Pending Results/Labs:AM labs Pending MD notification:N Latest Vital Signs: Temperature 97.4 , Pulse 83 , B/P 126 /72 , Respiratory Rate 20 , O2 SAT 100 , Room Air, O2 Flow Rate . Vital Sign Comment: [] Latest [place] Fall Score: 20 Fall Risk: Low Risk Safety Measures: Call light Within Reach, Bed Alarm Zone 1, Side Rails Side Rails x2, Bed position Low and Locked. Fall Precautions: Yellow Socks Yellow Gown Door Sign Patient Fall Education Addendum: 03/01/20 at 0725 by DORINDA MÉNDEZ RN RN HAND-OFF: Report given to
--- NOTE | 2020-03-01 07:05 | Hematology/Onc Progress Note ---
Assessment/Plan Assessment/Plan Assessment/Plan # Malignancy worisome in the ovary, can be primary ovarian or sarcoma v other process, p/w abd pain --> CT Complex bilateral adnexal region confluent mass, as described, presumably neoplastic, Massive right, moderate to large left pleural effusions. 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 --> abx as needed per gi # Nausea/vomting --> on antiemetics # Dvt ppx scds Appreciate consultation and dw RN Subjective Constitutional: Denies: no symptoms, chills, fever, malaise, weakness, other HEENT: Denies: no symptoms, eye pain, blurred vision, tearing, double vision, ear pain, ear discharge, nose pain, nose congestion, throat pain, throat swelling, mouth pain, mouth swelling, other Cardiovascular: Denies: no symptoms, chest pain, edema, irregular heart rate, lightheadedness, palpitations, syncope, other Respiratory: Denies: no symptoms, cough, shortness of breath, SOB with excertion, SOB at rest, sputum, wheezing, other Genitourinary: Denies: no symptoms, burning, discharge, frequency, flank pain, hematuria, incontinence, pain, urgency, other Neurologic/Psychiatric: Denies: no symptoms, anxiety, depressed, emotional problems, headache, numbness, paresthesia, pre-existing deficit, seizure, tingling, tremors, weakness, other Endocrine: Denies: no symptoms, excessive sweating, flushing, intolerance to cold, intolerance to heat, increased hunger, increased thirst, increased urine, unexplained weight gain, unexplained weight loss, other Allergies: Coded Allergies: No Known Allergies (Unverified , 02/24/20) Subjective 02/26 labs reviewed, no night sweats, meds reviewed, ca 125 markedly elevated 02/28 s/p para and thora, was removed 1.7l, meds reviewed 03/01 breathing has improved, no bleeding, no night sweats noted Objective Objective Current Medications Medications (Trade) Dose Ordered Sig/Silverio Route PRN Reason Start Time Stop Time Status Last Admin Dose Admin Acetaminophen (Tylenol) 650 mg Q6H PRN ORAL Mild Pain (Pain Scale 1-3) 02/24/20 19:45 03/25/20 19:44 Acetaminophen/ Hydrocodone Bitart ([place] 5/325) 1 tab Q6H PRN ORAL Moderate Pain (Pain Scale 4-6) 02/24/20 19:45 03/02/20 19:44 02/25/20 20:13 Furosemide (Lasix) 20 mg DAILY IV 02/27/20 09:00 03/28/20 08:59 02/29/20 08:28 Ondansetron HCl (Zofran) 4 mg Q6H PRN IVP Nausea & Vomiting 02/24/20 19:45 03/25/20 19:44 Polyethylene Glycol (Miralax) 17 gm DAILY ORAL 02/26/20 11:15 03/27/20 11:14 02/28/20 08:20 Spironolactone (Aldactone) 50 mg DAILY ORAL 02/27/20 09:00 03/28/20 08:59 02/28/20 08:20 Last 24 Hour Vital Signs Date Time Temp Pulse Resp B/P (MAP) Pulse Ox O2 Delivery O2 Flow Rate FiO2 03/01/20 04:00 97.4 83 20 126/72 (90) 100 03/01/20 00:00 98.2 72 18 97/63 (74) 98 02/29/20 20:33 Room Air 02/29/20 19:48 98.1 89 18 133/71 (91) 98 02/29/20 15:43 98.1 82 17 95/67 (76) 98 02/29/20 12:00 97.6 74 18 96/67 (77) 98 02/29/20 09:00 Room Air 02/29/20 08:07 98.1 86 97/70 (79) 02/29/20 04:00 97.8 90 18 103/70 (81) 96 02/29/20 00:00 97.9 76 20 93/69 (77) 97 02/28/20 21:00 Room Air 02/28/20 20:00 98.4 82 18 94/65 (75) 97 02/28/20 16:00 98.3 81 18 100/64 (76) 97 02/28/20 12:00 98.2 76 18 106/65 (79) 98 02/28/20 09:00 Room Air 02/28/20 08:00 97.7 88 19 100/64 (76) 98 Intake and Output 02/29/20 03/01/20 19:00 07:00 Intake Total 360 ml Balance 360 ml Intake Oral 360 ml # Voids 4 2 # Bowel Movements 1 1 Labs Test 02/29/20 05:50 03/01/20 05:35 White Blood Count 6.2 K/UL (4.8-10.8) 6.4 K/UL (4.8-10.8) Red Blood Count 4.87 M/UL (4.20-5.40) 4.84 M/UL (4.20-5.40) Hemoglobin 13.7 G/DL (12.0-16.0) 13.6 G/DL (12.0-16.0) Hematocrit 43.3 % (37.0-47.0) 42.8 % (37.0-47.0) Mean Corpuscular Volume 89 FL (80-99) 89 FL (80-99) Mean Corpuscular Hemoglobin 28.2 PG (27.0-31.0) 28.1 PG (27.0-31.0) Mean Corpuscular Hemoglobin Concent 31.6 G/DL (32.0-36.0) 31.7 G/DL (32.0-36.0) Red Cell Distribution Width 12.2 % (11.6-14.8) 12.3 % (11.6-14.8) Platelet Count 476 K/UL (150-450) 493 K/UL (150-450) Mean Platelet Volume 6.5 FL (6.5-10.1) 6.4 FL (6.5-10.1) Neutrophils (%) (Auto) 62.4 % (45.0-75.0) 63.0 % (45.0-75.0) Lymphocytes (%) (Auto) 21.4 % (20.0-45.0) 21.7 % (20.0-45.0) Monocytes (%) (Auto) 8.8 % (1.0-10.0) 8.3 % (1.0-10.0) Eosinophils (%) (Auto) 6.8 % (0.0-3.0) 6.5 % (0.0-3.0) Basophils (%) (Auto) 0.6 % (0.0-2.0) 0.5 % (0.0-2.0) Sodium Level 141 MMOL/L (136-145) Potassium Level 4.5 MMOL/L (3.5-5.1) Chloride Level 104 MMOL/L (98-107) Carbon Dioxide Level 28 MMOL/L (21-32) Anion Gap 9 mmol/L (5-15) Blood Urea Nitrogen 13 mg/dL (7-18) Creatinine 1.0 MG/DL (0.55-1.30) Estimat Glomerular Filtration Rate 56.9 mL/min (>60) Glucose Level 101 MG/DL (74-106) Calcium Level 8.6 MG/DL (8.5-10.1) Phosphorus Level 3.6 MG/DL (2.5-4.9) Magnesium Level 2.4 MG/DL (1.8-2.4) Height (Feet): 5 Height (Inches): 5.00 Weight (Pounds): 130 Objective Physical Exam General appearance: alert, cooperative, no distress, appears stated age Head: Normocephalic, without obvious abnormality, atraumatic Eyes: conjunctivae/corneas clear. PERRL, EOM's intact. Fundi benign Throat: Lips, mucosa, and tongue normal. Teeth and gums normal Neck: supple, symmetrical, trachea midline, no adenopathy Lungs: clear to auscultation bilaterally Heart: regular rate and rhythm, S1, S2 normal, no murmur, click, rub or gallop Abdomen: soft, non-tender. Bowel sounds normal. No masses, no organomegaly Extremities: extremities normal, atraumatic, no cyanosis or edema Pulses: 2+ and symmetric Skin: Skin color, texture, turgor normal. Neurologic: Grossly normal Jeremie Chicas MD Mar 01, 2020 07:05
[2020-03-01 07:21] LABS: ALBUMIN 2.7 G/DL (3.4-5.0); ALBUMIN/GLOBULIN RATIO 0.8 (1.0-2.7); BILIRUBIN,TOTAL 0.2 MG/DL (0.2-1.0); CALCIUM 8.6 MG/DL (8.5-10.1); CREATININE 1.1 MG/DL (0.55-1.30); POTASSIUM 4.3 MMOL/L (3.5-5.1)
--- NOTE | 2020-03-01 07:45 | NUR ---
NURSE NOTES:AM report received. pt is awake and verbally responsive in bed eating breakfast. respiration is even and unlabored on room air. denies any abdominal pain at this time. no acute distress noted. place call light within reach, will follow plan of care.
[2020-03-01 08:00] VITALS: BP 105/81
[2020-03-01] MEDS: Miralax 17gm pkt ORAL SCH (09:24)
[2020-03-01] MEDS: Spironolactone 50mg tab ORAL SCH (09:25)
--- NOTE | 2020-03-01 10:09 | Pulmonology Progress Note ---
Subjective ROS Limited/Unobtainable: Yes Interval Events: s/p thoracentsis; feeling better Constitutional: Reports: no symptoms HEENT: Repors: no symptoms Respiratory: Reports: no symptoms Cardiovascular: Reports: no symptoms Gastrointestinal/Abdominal: Reports: no symptoms Genitourinary: Reports: no symptoms Neurologic: Reports: no symptoms Allergies: Coded Allergies: No Known Allergies (Unverified , 02/24/20) Objective Last 24 Hour Vital Signs Date Time Temp Pulse Resp B/P (MAP) Pulse Ox O2 Delivery O2 Flow Rate FiO2 03/01/20 08:00 97.9 101 18 105/81 (89) 98 03/01/20 04:00 97.4 83 20 126/72 (90) 100 03/01/20 00:00 98.2 72 18 97/63 (74) 98 02/29/20 20:33 Room Air 02/29/20 19:48 98.1 89 18 133/71 (91) 98 02/29/20 15:43 98.1 82 17 95/67 (76) 98 02/29/20 12:00 97.6 74 18 96/67 (77) 98 Intake and Output0 02/29/20 03/01/20 19:00 07:00 Intake Total 360 ml Balance 360 ml Intake Oral 360 ml # Voids 4 2 # Bowel Movements 1 1 General Appearance: no acute distress HEENT: normocephalic, atraumatic Respiratory: chest wall non-tender, lungs clear Cardiovascular: normal peripheral pulses, normal rate Abdomen: normal bowel sounds Laboratory Tests 03/01/20 05:35: White Blood Count 6.4, Red Blood Count 4.84, Hemoglobin 13.6, Hematocrit 42.8, Mean Corpuscular Volume 89, Mean Corpuscular Hemoglobin 28.1, Mean Corpuscular Hemoglobin Concent 31.7L, Red Cell Distribution Width 12.3, Platelet Count 493H, Mean Platelet Volume 6.4L, Neutrophils (%) (Auto) 63.0, Lymphocytes (%) (Auto) 21.7, Monocytes (%) (Auto) 8.3, Eosinophils (%) (Auto) 6.5H, Basophils (%) (Auto) 0.5, Sodium Level 140, Potassium Level 4.3, Chloride Level 106, Carbon Dioxide Level 29, Anion Gap 6, Blood Urea Nitrogen 11, Creatinine 1.1, Estimat Glomerular Filtration Rate 51.0, Glucose Level 90, Calcium Level 8.6, Total Bilirubin 0.2, Aspartate Amino Transf (AST/SGOT) 34, Alanine Aminotransferase (ALT/SGPT) 21, Alkaline Phosphatase 68, Total Protein 6.1L, Albumin 2.7L, Globulin 3.4, Albumin/Globulin Ratio 0.8L Current Medications Medications (Trade) Dose Ordered Sig/Silverio Route PRN Reason Start Time Stop Time Status Last Admin Dose Admin Acetaminophen (Tylenol) 650 mg Q6H PRN ORAL Mild Pain (Pain Scale 1-3) 02/24/20 19:45 03/25/20 19:44 Acetaminophen/ Hydrocodone Bitart ([place] 5/325) 1 tab Q6H PRN ORAL Moderate Pain (Pain Scale 4-6) 02/24/20 19:45 03/02/20 19:44 02/25/20 20:13 Furosemide (Lasix) 20 mg DAILY IV 02/27/20 09:00 03/28/20 08:59 03/01/20 09:25 Ondansetron HCl (Zofran) 4 mg Q6H PRN IVP Nausea & Vomiting 02/24/20 19:45 03/25/20 19:44 Polyethylene Glycol (Miralax) 17 gm DAILY ORAL 02/26/20 11:15 03/27/20 11:14 03/01/20 09:24 Spironolactone (Aldactone) 50 mg DAILY ORAL 02/27/20 09:00 03/28/20 08:59 03/01/20 09:25 Assessment/Plan Assessment/Plan Assessment/Plan Probable primary ovarian or sarcoma v other process Coagulopathy Right pleural effusion S/p R thoracentesis Doing well Saturating well on RA Dc planning Luis Enrique Gilman MD Mar 01, 2020 10:09
--- NOTE | 2020-03-01 10:16 | General Progress Note ---
Subjective ROS Limited/Unobtainable: No Allergies: Coded Allergies: No Known Allergies (Unverified , 02/24/20) Objective Last 24 Hour Vital Signs Date Time Temp Pulse Resp B/P (MAP) Pulse Ox O2 Delivery O2 Flow Rate FiO2 03/01/20 08:00 97.9 101 18 105/81 (89) 98 03/01/20 04:00 97.4 83 20 126/72 (90) 100 03/01/20 00:00 98.2 72 18 97/63 (74) 98 02/29/20 20:33 Room Air 02/29/20 19:48 98.1 89 18 133/71 (91) 98 02/29/20 15:43 98.1 82 17 95/67 (76) 98 02/29/20 12:00 97.6 74 18 96/67 (77) 98 Intake and Output 02/29/20 03/01/20 19:00 07:00 Intake Total 360 ml Balance 360 ml Intake Oral 360 ml # Voids 4 2 # Bowel Movements 1 1 Laboratory Tests 03/01/20 05:35: White Blood Count 6.4, Red Blood Count 4.84, Hemoglobin 13.6, Hematocrit 42.8, Mean Corpuscular Volume 89, Mean Corpuscular Hemoglobin 28.1, Mean Corpuscular Hemoglobin Concent 31.7L, Red Cell Distribution Width 12.3, Platelet Count 493H, Mean Platelet Volume 6.4L, Neutrophils (%) (Auto) 63.0, Lymphocytes (%) (Auto) 21.7, Monocytes (%) (Auto) 8.3, Eosinophils (%) (Auto) 6.5H, Basophils (%) (Auto) 0.5, Sodium Level 140, Potassium Level 4.3, Chloride Level 106, Carbon Dioxide Level 29, Anion Gap 6, Blood Urea Nitrogen 11, Creatinine 1.1, Estimat Glomerular Filtration Rate 51.0, Glucose Level 90, Calcium Level 8.6, Total Bilirubin 0.2, Aspartate Amino Transf (AST/SGOT) 34, Alanine Aminotransferase (ALT/SGPT) 21, Alkaline Phosphatase 68, Total Protein 6.1L, Albumin 2.7L, Globu florecita 3.4, Albumin/Globulin Ratio 0.8L Height (Feet): 5 Height (Inches): 5.00 Weight (Pounds): 130 General Appearance: no apparent distress EENT: normal ENT inspection Neck: supple Cardiovascular: normal rate Respiratory/Chest: decreased breath sounds Abdomen: normal bowel sounds, non tender, soft Extremities: non-tender Assessment/Plan Assessment/Plan: metastatic ovarian cancer malignant ascites ca 125 24 K recommend TECH ED TEACHER oncology consult fu biopsy on diuretics s/p 3.5 lit paracentesis oncology in [facility] appreciated Sebastian Bentley MD Mar 01, 2020 10:16
[2020-03-01 12:00] VITALS: BP 101/74
--- NOTE | 2020-03-01 12:58 | Surgery Progress Note ---
Surgery Progress Note Subjective Additional Comments likely ovarian tumor markers noted improved pain no n/v okay for d/c outpatient cuprous chloride helper onc eval onc eval outpatient Objective Last 24 Hour Vital Signs Date Time Temp Pulse Resp B/P (MAP) Pulse Ox O2 Delivery O2 Flow Rate FiO2 03/01/20 09:00 Room Air 03/01/20 08:00 97.9 101 18 105/81 (89) 98 03/01/20 04:00 97.4 83 20 126/72 (90) 100 03/01/20 00:00 98.2 72 18 97/63 (74) 98 02/29/20 20:33 Room Air 02/29/20 19:48 98.1 89 18 133/71 (91) 98 02/29/20 15:43 98.1 82 17 95/67 (76) 98 I&O Intake and Output 02/29/20 03/01/20 19:00 07:00 Intake Total 360 ml Balance 360 ml Intake Oral 360 ml # Voids 4 2 # Bowel Movements 1 1 Cardiovascular: RSR Respiratory: decreased breath sounds Abdomen: soft, non-tender, present bowel sounds Extremities: no edema, no tenderness, no cyanosis Laboratory Tests Test 03/01/20 05:35 White Blood Count 6.4 K/UL (4.8-10.8) Red Blood Count 4.84 M/UL (4.20-5.40) Hemoglobin 13.6 G/DL (12.0-16.0) Hematocrit 42.8 % (37.0-47.0) Mean Corpuscular Volume 89 FL (80-99) Mean Corpuscular Hemoglobin 28.1 PG (27.0-31.0) Mean Corpuscular Hemoglobin Concent 31.7 G/DL (32.0-36.0) L Red Cell Distribution Width 12.3 % (11.6-14.8) Platelet Count 493 K/UL (150-450) H Mean Platelet Volume 6.4 FL (6.5-10.1) L Neutrophils (%) (Auto) 63.0 % (45.0-75.0) Lymphocytes (%) (Auto) 21.7 % (20.0-45.0) Monocytes (%) (Auto) 8.3 % (1.0-10.0) Eosinophils (%) (Auto) 6.5 % (0.0-3.0) H Basophils (%) (Auto) 0.5 % (0.0-2.0) Sodium Level 140 MMOL/L (136-145) Potassium Level 4.3 MMOL/L (3.5-5.1) Chloride Level 106 MMOL/L (98-107) Carbon Dioxide Level 29 MMOL/L (21-32) Anion Gap 6 mmol/L (5-15) Blood Urea Nitrogen 11 mg/dL (7-18) Creatinine 1.1 MG/DL (0.55-1.30) Estimat Glomerular Filtration Rate 51.0 mL/min (>60) Glucose Level 90 MG/DL (74-106) Calcium Level 8.6 MG/DL (8.5-10.1) Total Bilirubin 0.2 MG/DL (0.2-1.0) Aspartate Amino Transf (AST/SGOT) 34 U/L (15-37) Alanine Aminotransferase (ALT/SGPT) 21 U/L (12-78) Alkaline Phosphatase 68 U/L (46-116) Total Protein 6.1 G/DL (6.4-8.2) L Albumin 2.7 G/DL (3.4-5.0) L Globulin 3.4 g/dL Albumin/Globulin Ratio 0.8 (1.0-2.7) L Plan Problems: (1) Ascites Assessment & Plan: Uterus/cervix: The uterus measures 6.3 x 4.7 x 4.3 cm is. Endometrial stripe measures 0.3 cm. No myometrial mass. Right ovary: Neither ovary is discretely visualized. No torsion. Left ovary: See above. Free fluid: Moderate to large quantity of ascites. Bladder: Unremarkable as visualized. Wall is normal thickness for degree of distention. Other findings: There is a 10.8 cm solid and cystic ill-defined mass within the pelvis worrisome for neoplasm. IMPRESSION: 1. Heterogeneous solid cystic mass lesion centrally within the pelvis worrisome for neoplasm. 2. Moderate to large quantity of ascites. 3. Neither ovary is discretely visualized. 4. Magnetic resonance imaging of the pelvis with gadolinium administration is highly advised to follow. 5. Findings are highly worrisome for neoplasm, possibly of ovarian etiology. (2) Abdominal pain Assessment & Plan: unlikely appendicitis, or bowel related likely related to ovarian masses which are likely neoplasm no acute surgical intervention pending tumor markers okay for diet will follow with exam and recs abd pain improved no n/v states feels a bit better no drainage from abd wall para site now. small area of induation non infected likely residual fluid in subcutaneous or edema diet as tolerated likely ovarian ca outpatient gynonc eval The appendix is not clearly visualized, but there are no findings to suggest acute appendicitis. No evidence of diverticulosis or diverticulitis. No small bowel distention. Ingested contrast has traversed the entirety of the small bowel, extends far distally as the transverse colon. There is a moderate amount of ascites fluid present. This demonstrates mildly increased attenuation. No free intraperitoneal gas. Distal esophagus, stomach, duodenum are unremarkable. The posterior aspect of the uterus is surrounded by abnormal soft tissue is seen surrounding the posterior circumference of the uterus. This presumably represents confluent adnexal masses. Overall dimensions of this area are approximately 6.4 cm transverse by 4.7 cm AP. There is extensive omental infiltration by tumor. Mesenteric implants are also demonstrated scattered along the mesenteric surface. The liver demonstrates equivocal slight surface nodularity. No focal abno rmality. The gallbladder is mildly distended, otherwise unremarkable. The bile ducts are nondilated. The pancreas, spleen, adrenals, kidneys are unremarkable. No retroperitoneal or mesenteric mass or adenopathy. There is considerable infiltration of the right sided abdominal wall fat. There are bilateral pleural effusions, massive on the right, moderate to large on the left. There are compressive atelectatic changes at both lung bases. The bones are unremarkable. 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 Correlate with clinical history Infiltration of the right-sided abdominal wall fat. This could represent edema of hemodynamic origin, versus cellulitis. Correlate with clinical findings. Massive right, moderate to large left pleural effusions. Associated compressive atelectatic changes Farhat Del Valle Mar 01, 2020 12:58
[2020-03-01] MEDS ORDERED: SPIRONOLACTONE50 MG ORAL (14:12)
[2020-03-01] MEDS ORDERED: FUROSEMIDE20 M1 ORAL (14:12)
[2020-03-01] MEDS ORDERED: NORCO 5-325 TA1 EAC1 ORAL (14:13)
--- NOTE | 2020-03-01 14:40 | NUR ---
NURSE NOTES:pt is discharge home in no acute distress. patient is alert, awake and verbally responsive. respiration is even and unlabored. denies any pain and discomfort at this time. provided discharge teaching and encouraged patient to follow-up with MD's appointment. patient verbalized understanding. IV site remove. name-band removed. patient is escorted to the lobby, left the hospital via car in company of her sister.
--- NOTE | 2020-03-01 16:02 | NUR ---
INSURANCE [employer]INICALS FAXED TO [facility] [phone] PH [phone] [facility] [facility] [phone] PH [phone]
--- NOTE | 2020-03-02 07:23 | Discharge Summary ---
Discharge Summary Discharge Summary _ DATE OF ADMISSION: 02/24/2020 DATE OF DISCHARGE: 03/01/2020 DISCHARGED BY: Dr Laurent REASON FOR ADMISSION: 59 years old female with no stated past medical history , presented with abdominal discomfort and abdominal distention. Patient reported gradual onset of symptoms, associated with weight loss and decreased appetite. She also reported dysuria , She reported recent negative Pap smear. No fever or chills. No chest pain. She denied vomiting or diarrhea. Her prior CT scan showed normal liver. Upon evaluation patient was slightly tachycardic with heart rate 107 ,otherwise vital signs were stable Laboratory work-up revealed no leukocytosis,, stable hemoglobin hematocrit and platelet count. INR 1.1. Stable electrolytes and renal parameters. AST 46, ALT 28. CT scan of the abdomen and pelvis revealed moderate ascites. Complex bilateral adnexal region confluent mass, presumptively neoplastic. Evidence of disseminated intra-abdominal neoplasm with mesenteric and fairly extensive omental implants, most likely metastatic ovarian neoplasm. Equivocal slight hepatic surface nodularity. Probably early cirrhotic changes. Massive right and moderate to large left pleural effusion with associated compressive changes. Patient undergone attempted paracentesis in emergency department , however only minimal amount of fluid was drained due to catheter malfunction. Urine toxicology screen was negative. Urinalysis revealed no evidence of UTI. Patient admitted for further management CONSULTANTS: pulmonary Dr. Gilman GI specialist Dr. Bentley part time/oncologist Dr. García surgery Dr. Del Valle [facility] COURSE: Patient admitted to medical surgical floor. Patient was hydrated . Pelvic transvaginal ultrasound revealed heterogeneous solid cystic mass lesion centrally within the pelvis , worrisome for neoplasm. Moderate to large ascites. Findings were highly worrisome for neoplasm, possibly of ovarian etiology. Patient subsequently undergone CT-guided needle biopsy of omental mass . At the time of this dictation , biopsy results still pending. Patient undergone thoracentesis will yielded 1600 mL of pleural fluid and paracentesis yielding 3.5 L of ascitic fluid. Chest x-ray post thoracentesis revealed minimal residual right pleural effusion . Ammonia 28. Cancer tumor markers revealed elevated CA-125 -2494. CEA , CA 19-9, alpha-fetoprotein- all within normal limits. Patient was on diuretic with close monitoring of volumes . GI specialist recommended [facility]ATMENT [facility]IST oncology consult , which will be done as outpatient. Supplemental oxygen provided and titrated to keep pulse oximetry above 92%. Pulmonary toilet provided as needed. Pain management was addressed . Supportive care provided. Diet was slowly advanced . Pain improved ; no nausea or vomiting. Patient clinically stabilized and was ready for discharge home with outpatient follow-up with DR[facility] ABUSE TREATMENT SPECIALIST oncology and follow-up with the biopsy results FINAL DIAGNOSES: Metastatic ovarian cancer Malignant ascites , status post paracentesis Elevated CA-125 Right pleural effusion , status post thoracentesis Abdominal pain DISCHARGE MEDICATIONS: See Medication Reconciliation list. DISCHARGE INSTRUCTIONS: Patient was discharged home. Aloe up with a primary care provider in one week. Follow-up with [facility] ABUSE TREATMENT SPECIALIST oncologist per network for further management. I have been assigned to dictate discharge summary for this account. I was not involved in the patient's management. Erica Alejandro NP Mar 02, 2020 07:23
== END 2020-03-01 14:42 | disposition home or self-care (01) | DRG 530 ==
LOC: EMR 12:44 → 4E 17:00 → EDBEDREQ 18:17
PROC: 0DBU3ZX Excision of Omentum, Percutaneous Approach, Diagnostic (ICD-10-PCS; principal; 2020-02-27)
PROC: 0W993ZZ Drainage of Right Pleural Cavity, Percutaneous Approach (ICD-10-PCS; 2020-02-27)
PROC: 0W9G3ZZ Drainage of Peritoneal Cavity, Percutaneous Approach (ICD-10-PCS; 2020-02-27)
DX: C56.9 Malignant neoplasm of unspecified ovary (principal); R18.0 Malignant ascites; J90 Pleural effusion, not elsewhere classified; C79.9 Secondary malignant neoplasm of unspecified site; K29.70 Gastritis, unspecified, without bleeding; R97.1 Elevated cancer antigen 125 [CA 125]; R79.1 Abnormal coagulation profile; K29.60 Other gastritis without bleeding
CPT/HCPCS: 36415; 71045; 74177; 76830; 76856; 76942; 77012; 80048; 80053; 80307; 81003; 82105; 82140; 82378; 82550; 83690; 83735; 84100; 84484; 85007; 85025; 85060; 85610; 85730; 86304; 88104; 89051; 93005; 96361; 96365; 96375; 99291; G0480; J2405; J7030

== ENCOUNTER 2020-03-22 08:58 | Emergency (ER) | payer MEDICAID ==
[~2020-03-22] VITALS: Ht 165.1 cm; Wt 58.1 kg
[~2020-03-22 08:58] MED LIST: AMOXICILLIN500 MG ORAL; BACTRIM-DS1 EA ORAL; CLARITHROMYCIN500 MG PO; FUROSEMIDE20 M1 ORAL; METRONIDAZOLE500 MG ORAL; NORCO 5-325 TA1 EAC1 ORAL; OMEPRAZOLE20 M2 ORAL; SIMETHICONE80 MG ORAL; SPIRONOLACTONE50 MG ORAL
[2020-03-22 09:15] VITALS: BP 104/74
[2020-03-22] MEDS ORDERED: Morphine Sulfate 4mg/ml Inj (IV USE ONLY) IVP ONE (09:30)
[2020-03-22] MEDS ORDERED: Omnipaque-300 100ml vial INJ PRN (09:30)
--- NOTE | 2020-03-22 09:38 | Emergency Room Report ---
History of Present Illness General Chief Complaint: Abdominal Pain Source: Patient, Medical Record Present Illness HPI Disclaimer: Please note that this report is being documented using DRAGON technology. This can lead to erroneous entry secondary to incorrect interpretation by the dictating instrument. HPI: 51-year-old female presents for evaluation of abdominal pain and inability to urinate. Patient was admitted to this hospital several weeks ago with similar complaints of abdominal distention, dysuria and weight loss. Found to h ave mass in the omentum concerning for neoplasm as well as elevated cancer markers. She also had approximately 1600 cc ascites fluid drained. She states over the past 3 days worsening abdominal pain and abdominal distention. Decreased appetite. Inability pass urine for 24 hours. Notes pain over the right lower quadrant in the skin where the paracentesis was performed. Denies fever. 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 EOMI. Cardiovascular: Tachycardic. S1 and S2 normal. No murmur appreciated Resp: Normal work of breathing. No cough, wheezing or crackles appreciated Abdomen: Abdomen is soft, moderately distended. There is a tender nodule in the right lower quadrant without overlying skin changes. Negative rebound tenderness. Skin: Intact. No abrasions, laceration or rash over the exposed skin MSK: Normal tone and bulk. Moving all extremities. No obvious deformity. Neuro: Awake and alert. Mentating appropriately. Medical Decision Making Diagnostic Impression: Primary Impression: Abdominal pain Additional Impression: Ascites ER Course 59-year-old female for recently diagnosed with abdominal mass and recurrent ascites presents for evaluation abdominal pain distention inability urinate. Differential includes was not limited to post paracentesis infection, SBP, peritonitis, urinary obstruction, UTI, pyelonephritis, kidney failure among others. Pena catheter was placed and only 5 cc urine was relieved from the bladder. Labs are returned otherwise within normal limits. The patient has distended abdomen likely require paracentesis again. He was noted to be a technically difficult study and done under CT guidance on last visit. CT scan of the abdomen was obtained showing diffuse intra-abdominal malignancy and large volume ascites likely malignant. No obstruction otherwise. Will arrange for paracentesis. If feeling better can be discharged home follow-up with oncology and PMD. Patient will then be reevaluated for final disposition by oncoming physician. Laboratory Tests Test 03/22/20 09:30 03/22/20 09:42 White Blood Count 9.6 K/UL (4.8-10.8) Red Blood Count 5.57 M/UL (4.20-5.40) H Hemoglobin 15.6 G/DL (12.0-16.0) Hematocrit 50.0 % (37.0-47.0) H Mean Corpuscular Volume 90 FL (80-99) Mean Corpuscular Hemoglobin 28.1 PG (27.0-31.0) Mean Corpuscular Hemoglobin Concent 31.3 G/DL (32.0-36.0) L Red Cell Distribution Width 13.3 % (11.6-14.8) Platelet Count 471 K/UL (150-450) H Mean Platelet Volume 6.5 FL (6.5-10.1) Neutrophils (%) (Auto) 82.6 % (45.0-75.0) H Lymphocytes (%) (Auto) 9.5 % (20.0-45.0) L Monocytes (%) (Auto) 6.8 % (1.0-10.0) Eosinophils (%) (Auto) 0.6 % (0.0-3.0) Basophils (%) (Auto) 0.4 % (0.0-2.0) Sodium Level 136 MMOL/L (136-145) Potassium Level 3.6 MMOL/L (3.5-5.1) Chloride Level 98 MMOL/L (98-107) Carbon Dioxide Level 30 MMOL/L (21-32) Anion Gap 8 mmol/L (5-15) Blood Urea Nitrogen 12 mg/dL (7-18) Creatinine 1.0 MG/DL (0.55-1.30) Estimated Glomerular Filtration Rate 56.9 mL/min (>60) Glucose Level 142 MG/DL (74-106) H Calcium Level 9.1 MG/DL (8.5-10.1) Total Bilirubin 0.4 MG/DL (0.2-1.0) Aspartate Amino Transferase (AST) 29 U/L (15-37) Alanine Aminotransferase (ALT) 24 U/L (12-78) Alkaline Phosphatase 84 U/L (46-116) Total Protein 7.5 G/DL (6.4-8.2) Albumin 3.3 G/DL (3.4-5.0) L Globulin 4.2 g/dL Albumin/Globulin Ratio 0.8 (1.0-2.7) L Lipase 200 U/L (73-393) Urine HCG, Qualitative Negative (NEGATIVE) CT/MRI/US Diagnostic Results CT/MRI/US Diagnostic Results : Impression Impression: Limited assessment of the GI tract, due to lack of enteric contrast administration Evidence of disseminated pelvic malignancy, with large pelvic mass, extensive peritoneal and omental tumor implants. 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 Currently, however, there are enhancing nodules extending from the abdominal wall musculature to the skin surface. This is concerning for tumor nodules possibly along a prior surgical tract Massive right pleural effusion, presence of atelectasis of most of the left lung. Large left pleural effusion results in compressive atelectasis of much of the left lower lobe Questionable cholelithiasis Questionable diverticulosis Pena catheter. Air within the bladder likely relates to such. Small bowel diverticulum at the level of the ligament of Treitz The CT scanner at [facility] is accredited by the [employer] and the scans are performed using protocols designed to limit radiation exposure to as low as reasonably achievable to attain images of sufficient resolution adequate for diagnostic evaluation. Dictated By: Chacorta Flores MD Electronically Signed By:Chacorta Flores MD Signed Date/Time03/22/20 1122 CC: Rodrick Lubin MD Last Vital Signs Date Time Temp Pulse Resp B/P (MAP) Pulse Ox O2 Delivery O2 Flow Rate FiO2 03/22/20 09:09 97.7 120 20 104/74 (84) 92 Room Air Disposition: HOME, SELF-CARE Condition: Stable Scripts Docusate Sodium* (COLACE*) 100 Mg Capsule 100 MG ORAL TWICE A DAY, #20 CAP Prov: Barron Salinas MD 03/22/20 Hydrocodone Bit/Acetaminophen 5-325* (NORCO 5-325 TABLET*) 1 Each Tablet 1 TAB ORAL Q6H PRN for FOR PAIN, #12 TAB 0 Refills Prov: Barron Salinas MD 03/22/20 Referrals: [facility]ERR[facility] (PCP) Rodrick Lubin MD Mar 22, 2020 09:38
[2020-03-22 09:58] LABS: BASOPHILS % (AUTO) 0.4 % (0.0-2.0); EOSINOPHILS % (AUTO) 0.6 % (0.0-3.0); HEMOGLOBIN 15.6 G/DL (12.0-16.0); LYMPHOCYTES % (AUTO) 9.5 % (20.0-45.0); MEAN CORPUSCULAR VOLUME 90 FL (80-99); MONOCYTES % (AUTO) 6.8 % (1.0-10.0); NEUTROPHILS % (AUTO) 82.6 % (45.0-75.0); PLATELET COUNT 471 K/UL (150-450); RED BLOOD COUNT 5.57 M/UL (4.20-5.40); RED CELL DISTRIBUTION WIDTH 13.3 % (11.6-14.8); WHITE BLOOD COUNT 9.6 K/UL (4.8-10.8)
[2020-03-22] MEDS ORDERED: Morphine Sulfate 4mg/ml Inj (IV USE ONLY) ONE (10:04)
[2020-03-22 10:06] LABS: CALCIUM 9.1 MG/DL (8.5-10.1); POTASSIUM 3.6 MMOL/L (3.5-5.1)
--- NOTE | 2020-03-22 10:15 | NUR ---
ED Nurse Note: Pt came in to ED accompanied by family member d/t abdominal pain and unable to urinate since yesterday. pt is AOx4, cooperative to care, appears to be restless, noted with facial grimace. Pt's VSS, breathing even and unlabored, afebrile on triage. Pt denies any diarrhea. Placed on bed.
[2020-03-22 10:22] LABS: ALBUMIN 3.3 G/DL (3.4-5.0); ALBUMIN/GLOBULIN RATIO 0.8 (1.0-2.7); BILIRUBIN,TOTAL 0.4 MG/DL (0.2-1.0)
--- NOTE | 2020-03-22 10:22 | NUR ---
ED Nurse Note: Pt was taken to CT on stable condition.
--- NOTE | 2020-03-22 10:31 | NUR ---
ED Nurse Note: Pt returned from CT
--- NOTE | 2020-03-22 11:27 | Diagnostic Imaging Report ---
Clinical Indication: Abdominal pain Technique: No oral contrast utilized, per emergency room physician request IV administration nonionic contrast. Venous phase spiral acquisition obtained through the abdomen and pelvis. Multiplanar reconstructions were generated. Total dose length product 10 and 63 mGycm. CTDIvol(s) 4 mGy. Dose reduction achieved using automated exposure control Comparison: 02/25/2020 Findings: Lack of enteric contrast limits assessment of the GI tract. There are questionably small diverticula, more evident than on the previous exam. The appendix is not identified, but no findings to suggest acute appendicitis are evident. There is a moderate amount of ascites fluid present, amount of which appears similar to the previous exam. No small bowel distention. The distal esophagus, stomach, duodenum are unremarkable. There is a diverticulum off of the small bowel at the level of the ligament of Treitz. This is currently gas-filled, previously contrast-filled. Previously demonstrated infiltration of the right lower quadrant subcutaneous fat is no longer evident, and there is interim resolution of the edema of the abdominal wall musculature and there is area. Also evident in retrospect on the previous study were some gas bubbles within the abdominal wall musculature and fat. Appearance is suggestive of prior ostomy takedown. There are now some nodularity opacities extending from the lateral aspect of the rectus abdominis muscle to the skin surface which appear to enhance. Again demonstrated is a complex mass or conglomerate masses in the pelvis, predominantly posterior to and surrounding the uterus, in aggregate measuring approximately 7.5 cm transverse, 6 cm AP, and 5 cm craniocaudad. Dimensions appears similar to the previous study. Again demonstrated are extensive enhancing nodules along the peritoneal surface, appearing larger and more extensive than on the previous study. Again demonstrated is extensive infiltration of the omental fat. There may be small gallstones. The liver is unremarkable. No biliary ductal dilatation. The pancreas, spleen, adrenals, kidneys are unremarkable. No retroperitoneal mass or adenopathy. There is a Pena catheter within the bladder. Some gas within the bladder likely relates to the Pena catheterization. The bones are unremarkable. The lung bases demonstrate massive right and large left pleural effusions, resulting and compressive atelectasis of what appears to be the entire right middle and lower lobes and a significant portion of the right upper lobe, as well as compressive atelectasis of most if not all of the left lower lobe Impression: Limited assessment of the GI tract, due to lack of enteric contrast administration Evidence of disseminated pelvic malignancy, with large pelvic mass, extensive peritoneal and omental tumor implants. 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 Currently, however, there are enhancing nodules extending from the abdominal wall musculature to the skin surface. This is concerning for tumor nodules possibly along a prior surgical tract Massive right pleural effusion, presence of atelectasis of most of the left lung. Large left pleural effusion results in compressive atelectasis of much of the left lower lobe Questionable cholelithiasis Questionable diverticulosis Pena catheter. Air within the bladder likely relates to such. Small bowel diverticulum at the level of the ligament of Treitz The CT scanner at [facility] is accredited by the [employer] and the scans are performed using protocols designed to limit radiation exposure to as low as reasonably achievable to attain images of sufficient resolution adequate for diagnostic evaluation.
[2020-03-22 12:59] LABS: APPEARANCE,URINE CLEAR; BILIRUBIN, URINE NEGATIVE (NEGATIVE); GLUCOSE, URINE (UA) NEGATIVE (NEGATIVE); KETONES,URINE 1+ (NEGATIVE); LEUKOCYTE ESTERASE ,URINE 1+ (NEGATIVE); NITRITE,URINE NEGATIVE (NEGATIVE); PH,URINE 6.5 (4.5-8.0); PROTEIN,URINE 2+ (NEGATIVE); UROBILINOGEN,URINE NORMAL MG/DL (0.0-1.0)
[2020-03-22 13:09] LABS: COLOR,URINE YELLOW
--- NOTE | 2020-03-22 14:35 | NUR ---
ED Nurse Note: pt was taken to US for paracentesis, consent signed by pt and ermd.
--- NOTE | 2020-03-22 15:50 | NUR ---
ED Nurse Note: Pt returned from US. Per daniella Rowley, 1.7 liters taken from paracentesis. Pt AOx4, no acute distress noted.
[2020-03-22] MEDS ORDERED: Lidocaine 1% Plain 30 ml INJ ONE (16:00)
[2020-03-22] MEDS ORDERED: COLACE100 MG ORAL (16:02)
[2020-03-22] MEDS ORDERED: NORCO 5-325 TA1 EAC1 ORAL (16:02)
[2020-03-22 16:12] VITALS: BP 110/76
--- NOTE | 2020-03-22 16:12 | NUR ---
ER DISCHARGE NOTE: Patient is cleared to be discharged per ERMD, pt is aox4, on room air, with stable vital signs. pt was given dc and prescription instructions, pt was able to verbalize understanding, pt id band and iv site removed without complications. pt is able to ambulate with steady gait. pt took all belongings.
--- NOTE | 2020-03-22 17:17 | Diagnostic Imaging Report ---
Indications: Ascites Technique: Ultrasound used to localize optimal puncture site. Sterile prepping and draping left lower quadrant. Local anesthesia with 1% lidocaine. Under real-time ultrasound guidance, puncture peritoneal space using paracentesis needle. Stylet removed. Catheter placed to vacuum bottle suction. Total 1.7 liters of fluid aspirated. Patient tolerated procedure well, without immediate complication. Findings: Followup sonography demonstrates near complete resolution of peritoneal fluid. Impression: Successful ultrasound-guided paracentesis, yielding 1.7 liters of fluid
== END 2020-03-22 16:12 | disposition home or self-care (01) ==
LOC: EMR 09:20 → EDBEDREQ 12:19 → EMR 16:12
DX: R18.8 Other ascites (principal); R30.0 Dysuria; K57.90 Diverticulosis of intestine, part unspecified, without perforation or abscess without bleeding; J90 Pleural effusion, not elsewhere classified
CPT/HCPCS: 36415; 51702; 74177; 76942; 80053; 81003; 81025; 83690; 85025; 96361; 96374; J2270; Q9965; Z7502; 99284

== ENCOUNTER 2020-03-25 12:26 | Emergency (ER) | payer MEDICAID ==
[~2020-03-25] VITALS: Ht 165.1 cm; Wt 54.4 kg
[~2020-03-25 12:26] MED LIST changes: +COLACE100 MG ORAL
[2020-03-25 12:36] VITALS: BP 122/76
--- NOTE | 2020-03-26 15:49 | Emergency Room Report ---
History of Present Illness General Chief Complaint: Dyspnea/Respdistress Source: Patient, Family Member Present Illness HPI 59-year-old female presents the ED with shortness of breath, abdominal swelling. Family at bedside states that patient has been seen here previously for this. Needs to have the fluid taken out. They do not know the reason why she keeps getting this fluid. Denies chest pain. Denies fevers or chills. No other aggravating relieving factors. 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 Patient History Past Medical History: other - ascites Past Surgical History: none Pertinent Family History: none Social History: Denies: smoking, alcohol use, drug use Now: No Immunizations: UTD Reviewed Nursing Documentation: PMH: Agreed; PSxH: Agreed Nursing Documentation-PMH Hx Gastrointestinal Problems: Yes - ascites Review of Systems All Other Systems: negative except mentioned in HPI Physical Exam Vital Signs Date Time Temp Pulse Resp B/P (MAP) Pulse Ox O2 Delivery O2 Flow Rate FiO2 03/25/20 12:30 98.6 120 12 122/76 (91) 96 Room Air Sp02 EP Interpretation: reviewed, normal General Appearance: no apparent distress, alert, GCS 15, non-toxic Head: normocephalic, atraumatic Eyes: bilateral eye normal inspection, bilateral eye PERRL ENT: hearing grossly normal, normal pharynx, no angioedema, normal voice Neck: full range of motion, supple/symm/no masses Respiratory: chest non-tender, lungs clear, normal breath sounds, speaking full sentences Cardiovascular #1: regular rate, rhythm, no edema Cardiovascular #2: 2+ carotid (R), 2+ carotid (L), 2+ radial (R), 2+ radial (L), 2+ dorsalis pedis (R), 2+ dorsalis pedis (L) Gastrointestinal: normal bowel sounds, soft, non-distended, no guarding, no rebound, distended Rectal: deferred Genitourinary: normal inspection, no CVA tenderness Musculoskeletal: back normal, normal range of motion, gait/station normal, non- tender Neurologic: alert, motor strength/tone normal, oriented x3, sensory intact, responsive, speech normal Psychiatric: judgement/insight normal, memory normal, mood/affect normal, no suicidal/homicidal ideation Reflexes: 3+ bicep (R), 3+ bicep (L), 3+ tricep (R), 3+ tricep (L), 3+ knee (R), 3+ knee (L) Skin: no rash Lymphatic: no adenopathy Medical Decision Making Diagnostic Impression: Primary Impression: Ascites Qualified Codes: R18.0 - Malignant ascites Additional Impression: Pelvic cancer ER Course 59-year-old female presents with ascites, shortness of breath differentialmalignancy, SBP, alcoholic cirrhosis Initial history and physical I reviewed EMR. Patient was seen here previously for similar presentation. CT showed a malignancy and likely metastasis to the abdomen. This is likely the source of her ascites. family and patient stated that they did not understand the diagnosis. They asked what needs to be done and I explained that patient will require multifactorial treatment including oncology and [employer]. They stated that they would prefer to take patient to a bigger hospital such as [facility]. I provided them with a copy of CT report Understands the risks of leaving. Patient has competency to make her own decisions. Signed AMA form. Diagnosisascites, pelvic cancer Patient left AMA Last Vital Signs Date Time Temp Pulse Resp B/P (MAP) Pulse Ox O2 Delivery O2 Flow Rate FiO2 03/25/20 12:58 98.6 118 15 120/82 98 Room Air Status: unchanged Disposition: AGAINST MEDICAL ADVICE Condition: Unknown Referrals: [facility] (PCP) Vernon Moser MD Mar 26, 2020 15:49
== END 2020-03-25 14:00 | disposition left against medical advice (07) ==
LOC: EMR 13:03
DX: R18.0 Malignant ascites (principal); C76.3 Malignant neoplasm of pelvis; Z53.29 Procedure and treatment not carried out because of patient's decision for other reasons
CPT/HCPCS: 99281